=== PATIENT | male | born 1945 | race Hispanic/Latino ===

== ENCOUNTER 2019-12-29 17:01 | Emergency (ER) | payer MEDICARE ==
[2019-12-29 17:21] LABS: APPEARANCE,URINE Clear (CLEAR); BILIRUBIN,URINE Negative (NEGATIVE); COLOR,URINE Yellow (YELLOW); GLUCOSE, URINE (UA) Negative (NEGATIVE); KETONES,URINE Negative (NEGATIVE); LEUKOCYTE ESTERASE ,URINE Trace (NEGATIVE); NITRATE,URINE Negative (NEGATIVE); OCCULT BLOOD,URINE Nonhemolyzed Trace (NEGATIVE); PH,URINE 7.5 (5.0-8.0); PROTEIN,URINE Negative (NEGATIVE)
[2019-12-29 17:30] LABS: BASOPHILS % (AUTO) 0.3 % (0.0-5.0); EOSINOPHILS % (AUTO) 1.5 % (0.0-8.0); HEMATOCRIT 39.7 % (42-54); LYMPHOCYTES % (AUTO) 7.7 % (21.0-51.0); MEAN CORPUSCULAR HEMOGLOBIN 29.3 pg (27.0-33.0); MEAN CORPUSCULAR HGB CONC 32.2 g/dL (32.0-36.0); MEAN CORPUSCULAR VOLUME 90.8 fL (79-99); MONOCYTES % (AUTO) 6.8 % (3.0-13.0); NEUTROPHILS % (AUTO) 83.3 % (40.0-77.0); PLATELET COUNT (AUTO) 236 K/uL (130-400); RED BLOOD CELL COUNT(AUTO) 4.37 MIL/uL (4.50-6.20); RED CELL DISTRIBUTION WIDTH 12.7 % (11.0-15.5); WHITE BLOOD COUNT (AUTO) 13.2 K/uL (4.8-10.8)
[2019-12-29 17:31] LABS: BACTERIA,URINE Rare /HPF (None Seen); RBC,URINE 0-1 /HPF (0-1); SQUAMOUS EPITHELIAL CELL,UR Rare /HPF (0-2); WBC,URINE 0-1 /HPF (0-1)
[2019-12-29 17:47] LABS: CREATININE 1.1 mg/dL (0.5-1.5); POTASSIUM 4.2 mmol/L (3.5-5.1)
[2019-12-29 17:48] LABS: INR 0.97 (0.85-1.15); PROTHROMBIN TIME 10.5 SEC (9.6-11.6)
[2019-12-29 18:01] LABS: ALBUMIN 3.5 g/dL (3.5-5.0); BILIRUBIN,TOTAL 0.7 mg/dL (0.2-1.0); TOTAL PROTEIN, SERUM 7.6 g/dL (6.0-8.3)
[2019-12-29] MEDS ORDERED: SODIUM CHLORIDE 0.9% 500ML 500 ML IV ONE (19:51)
[2019-12-29] MEDS ORDERED: LEVOFLOXACIN 500 MG TABLET ONE (19:51)
== END 2019-12-29 20:32 | disposition home or self-care (01) ==
LOC: EDH 17:01
DX: M62.830 Muscle spasm of back (principal); R91.8 Other nonspecific abnormal finding of lung field; J44.9 Chronic obstructive pulmonary disease, unspecified; E11.9 Type 2 diabetes mellitus without complications; E78.5 Hyperlipidemia, unspecified; I10 Essential (primary) hypertension; Z87.891 Personal history of nicotine dependence; Z99.81 Dependence on supplemental oxygen
CPT/HCPCS: 36415; 71045; 71275; 80053; 81001; 82550; 83880; 84484; 85025; 85378; 85610; 85730; 93005; 99285; J7040

== ENCOUNTER 2020-04-10 21:38 | Emergency (ER) | payer MEDICARE ==
[2020-04-10] MEDS ORDERED: ACETAMINOPHEN 325 MG TAB ONE (22:27)
[2020-04-10] MEDS ORDERED: LIDOCAINE 5% TOPICAL PATCH TP ONE (22:27)
== END 2020-04-10 23:17 | disposition home or self-care (01) ==
LOC: EDH 21:38
DX: S16.1XXA Strain of muscle, fascia and tendon at neck level, initial encounter (principal); J43.9 Emphysema, unspecified; E11.9 Type 2 diabetes mellitus without complications; I10 Essential (primary) hypertension; E78.5 Hyperlipidemia, unspecified; X58.XXXA Exposure to other specified factors, initial encounter; Y93.89 Activity, other specified; Y92.89 Other specified places as the place of occurrence of the external cause; Y99.8 Other external cause status
CPT/HCPCS: 71045

== ENCOUNTER 2020-05-28 04:58 | Emergency (ER) | payer MEDICARE ==
[2020-05-28 05:38] LABS: BASOPHILS % (AUTO) 0.5 % (0.0-5.0); EOSINOPHILS % (AUTO) 2.8 % (0.0-8.0); HEMATOCRIT 36.8 % (42-54); MEAN CORPUSCULAR HEMOGLOBIN 29.5 pg (27.0-33.0); MEAN CORPUSCULAR HGB CONC 31.8 g/dL (32.0-36.0); MEAN CORPUSCULAR VOLUME 92.9 fL (79-99); MONOCYTES % (AUTO) 9.5 % (3.0-13.0); NEUTROPHILS % (AUTO) 69.3 % (40.0-77.0); PLATELET COUNT (AUTO) 224 K/uL (130-400); RED BLOOD CELL COUNT(AUTO) 3.96 MIL/uL (4.50-6.20); RED CELL DISTRIBUTION WIDTH 13.5 % (11.0-15.5); WHITE BLOOD COUNT (AUTO) 5.8 K/uL (4.8-10.8)
[2020-05-28 05:56] LABS: CREATININE 1.5 mg/dL (0.5-1.5); POTASSIUM 3.6 mmol/L (3.5-5.1)
[2020-05-28 05:58] LABS: INR 1.03 (0.85-1.15); PROTHROMBIN TIME 11.2 SEC (9.6-11.6)
[2020-05-28 06:00] LABS: B-TYPE NATRIURETIC PEPTIDE 46 pg/mL (0-100); PARTIAL THROMBOPLASTIN TIME 24.8 SEC (26.3-35.5)
[2020-05-28] MEDS ORDERED: METHYLPREDNISOLONE SOD SUCC 40MG/ML 1ML ONE (06:03)
[2020-05-28 06:09] LABS: ALBUMIN 3.2 g/dL (3.5-5.0); BILIRUBIN,TOTAL 0.4 mg/dL (0.2-1.0); TOTAL PROTEIN, SERUM 6.8 g/dL (6.0-8.3)
[2020-05-28] MEDS ORDERED: IPRATROPIUM/ALBUTEROL SULFATE 3 ML SOLUTION IH ONE (07:50)
== END 2020-05-28 08:53 | disposition home or self-care (01) ==
LOC: EDH 04:58
DX: J44.1 Chronic obstructive pulmonary disease with (acute) exacerbation (principal); G47.00 Insomnia, unspecified; Z20.822 Contact with and (suspected) exposure to COVID-19; E11.9 Type 2 diabetes mellitus without complications; I10 Essential (primary) hypertension; E78.5 Hyperlipidemia, unspecified; Z87.891 Personal history of nicotine dependence
CPT/HCPCS: 36415; 71045; 80053; 82550; 83605; 83880; 84484; 85025; 85610; 85730; 87426; 87804 ×2; 93005; 94640; 96374; 99285; J2920

== ENCOUNTER 2020-08-21 19:35 | Observation (INO) | payer MEDICARE ==
[~2020-08-21] VITALS: Ht 167.6 cm; Wt 91.4 kg
[2020-08-21 19:37] VITALS: BP 155/69
[2020-08-21 20:18] LABS: BASOPHILS % (AUTO) 0.8 % (0.0-5.0); EOSINOPHILS % (AUTO) 2.4 % (0.0-8.0); HEMATOCRIT 35.1 % (42-54); LYMPHOCYTES % (AUTO) 15.4 % (21.0-51.0); MEAN CORPUSCULAR HEMOGLOBIN 29.2 pg (27.0-33.0); MEAN CORPUSCULAR HGB CONC 30.2 g/dL (32.0-36.0); MEAN CORPUSCULAR VOLUME 96.7 fL (79-99); MONOCYTES % (AUTO) 11.9 % (3.0-13.0); NEUTROPHILS % (AUTO) 68.2 % (40.0-77.0); PLATELET COUNT (AUTO) 222 K/uL (130-400); RED BLOOD CELL COUNT(AUTO) 3.63 MIL/uL (4.50-6.20); RED CELL DISTRIBUTION WIDTH 13.9 % (11.0-15.5); WHITE BLOOD COUNT (AUTO) 6.3 K/uL (4.8-10.8)
[2020-08-21] MEDS ORDERED: SOLU-MEDROL 125MG VIAL IVP ONE (20:30)
[2020-08-21] MEDS ORDERED: IPRATROPIUM/ALBUTEROL SULFATE 3 ML SOLUTION IH ONE (20:30)
[2020-08-21 20:32] LABS: CREATININE 1.1 mg/dL (0.5-1.5); POTASSIUM 4.3 mmol/L (3.5-5.1)
[2020-08-21 20:36] LABS: ALBUMIN 2.9 g/dL (3.5-5.0); BILIRUBIN,TOTAL 0.2 mg/dL (0.2-1.0); TOTAL PROTEIN, SERUM 6.6 g/dL (6.0-8.3)
[2020-08-21 20:38] LABS: B-TYPE NATRIURETIC PEPTIDE 136 pg/mL (0-100)
[2020-08-21] MEDS ORDERED: SOLU-MEDROL 125MG VIAL ONE (20:48)
[2020-08-21 21:15] LABS: ABG BASE EXCESS 1.4 mmol/L (-2.0-3.0); ABG HCO3 25.9 mmol/L (21.0-28.0); ABG PCO2 41 mmHg (35-48)
[2020-08-21] MEDS ORDERED: 0.9% NACL 250ML IVPB ONE (21:30)
[2020-08-21] MEDS ORDERED: CEFTRIAXONE 1G VIAL IVP ONE (21:30)
[2020-08-21] MEDS ORDERED: ALBUTEROL 0.083% 2.5 MG/3 ML INH IH ONE (21:30)
[2020-08-21] MEDS ORDERED: AZITHROMYCIN 500MG+NS 250ML IV ONE (22:00)
[2020-08-21 22:20] VITALS: BP 143/83
[2020-08-21] MEDS ORDERED: NITROGLYCERIN 0.4 MG SL TAB SL PRN (22:30)
[2020-08-21] MEDS ORDERED: ACETAMINOPHEN 325 MG TAB PO PRN (22:30)
[2020-08-21] MEDS ORDERED: ONDANSETRON 4MG INJ IV PRN (22:30)
[2020-08-21] MEDS ORDERED: AZITHROMYCIN 250 MG TABLET PO SCH (22:30)
[2020-08-21] MEDS ORDERED: CEFTRIAXONE 1G VIAL IV SCH (22:30)
[2020-08-21] MEDS ORDERED: LACTULOSE 20 GM/30 ML UDCUP PO PRN (22:30)
[2020-08-21] MEDS ORDERED: HYDRALAZINE 20MG/ML VIAL IV PRN (22:30)
[2020-08-21] MEDS: SOLU-MEDROL 125MG VIAL IVP SCH (22:30)
[2020-08-21] MEDS: IPRATROPIUM/ALBUTEROL SULFATE 3 ML SOLUTION IH SCH (23:02)
[2020-08-22] VITALS (8 sets, daily range): BP systolic 134–152; BP diastolic 64–85
[2020-08-22] MEDS ORDERED: ISOS10TA8 PO (04:03)
[2020-08-22] MEDS ORDERED: UMEC62.5 IH (04:03)
[2020-08-22] MEDS ORDERED: OMEP40CA21 PO (04:03)
[2020-08-22] MEDS ORDERED: ATOR20TA65 PO (04:03)
[2020-08-22] MEDS ORDERED: PIOG30TA70 PO (04:03)
[2020-08-22] MEDS ORDERED: LOSA1TAB42 PO (04:03)
[2020-08-22] MEDS ORDERED: ADV250 IH (04:03)
[2020-08-22] MEDS: SOLU-MEDROL 125MG VIAL IVP SCH ×3 (04:17→17:41)
[2020-08-22] MEDS: INSULIN HUMULIN R 100 UNIT/ML 3ML SQ SCH ×4 (06:19→21:04)
[2020-08-22] MEDS: IPRATROPIUM/ALBUTEROL SULFATE 3 ML SOLUTION IH SCH ×4 (06:33→23:05)
[2020-08-22] MEDS ORDERED: FAMOTIDINE 20MG TAB PO SCH (09:00)
[2020-08-22] MEDS: BENZONATATE 100 MG CAPSULE PO SCH ×3 (09:47→20:47)
[2020-08-22] MEDS: ENOXAPARIN SODIUM 40 MG/0.4 ML SYRINGE SQ SCH (09:47)
[2020-08-22] MEDS ORDERED: LEVOFLOXACIN 500 MG/D5W 100 ML 100 ML IV SCH (20:30)
[2020-08-22] MEDS ORDERED: ATORVASTATIN 20 MG TABLET PO SCH (21:00)
[2020-08-23 04:00] VITALS: BP 144/73
[2020-08-23] MEDS ORDERED: SOLU-MEDROL 125MG VIAL IVP SCH (04:30)
[2020-08-23] MEDS: INSULIN HUMULIN R 100 UNIT/ML 3ML SQ SCH ×2 (05:28→11:30)
[2020-08-23 05:42] LABS: HEMATOCRIT 32.2 % (42-54); MEAN CORPUSCULAR HEMOGLOBIN 28.9 pg (27.0-33.0); MEAN CORPUSCULAR HGB CONC 31.1 g/dL (32.0-36.0); MEAN CORPUSCULAR VOLUME 93.1 fL (79-99); RED BLOOD CELL COUNT(AUTO) 3.46 MIL/uL (4.50-6.20); RED CELL DISTRIBUTION WIDTH 13.6 % (11.0-15.5); WHITE BLOOD COUNT (AUTO) 9.1 K/uL (4.8-10.8)
[2020-08-23] MEDS: IPRATROPIUM/ALBUTEROL SULFATE 3 ML SOLUTION IH SCH ×2 (07:12→13:41)
[2020-08-23 08:00] VITALS: BP 150/63
[2020-08-23] MEDS: BENZONATATE 100 MG CAPSULE PO SCH (08:55)
[2020-08-23] MEDS: ENOXAPARIN SODIUM 40 MG/0.4 ML SYRINGE SQ SCH (08:56)
[2020-08-23] MEDS ORDERED: ISOSORBIDE MONONITRATE 10 MG PO SCH (09:00)
[2020-08-23] MEDS ORDERED: HYDROCHLOROTHIAZIDE 25 MG TABLET PO SCH (09:00)
[2020-08-23] MEDS ORDERED: PANTOPRAZOLE 40 MG TAB DR PO SCH (09:00)
[2020-08-23] MEDS ORDERED: LOSARTAN 100 MG TABLET PO SCH (09:00)
[2020-08-23] MEDS ORDERED: PRED20TA3 PO (10:23)
[2020-08-23] MEDS ORDERED: LEVO500T89 PO (10:23)
[2020-08-23] MEDS ORDERED: ALBU1.252 IH (10:23)
[2020-08-23 12:00] VITALS: BP 120/68
== END 2020-08-23 14:14 | disposition home or self-care (01) ==
LOC: EDH 19:35 → EDHIP 22:14 → 3CH 08-22 02:27
PROVIDERS: ADMIT Internal Medicine Pulmonary Disease; ATTEND Internal Medicine Pulmonary Disease
DX: J96.21 Acute and chronic respiratory failure with hypoxia (principal); Z20.822 Contact with and (suspected) exposure to COVID-19; J44.1 Chronic obstructive pulmonary disease with (acute) exacerbation; J18.9 Pneumonia, unspecified organism; I10 Essential (primary) hypertension; I25.2 Old myocardial infarction; I25.10 Atherosclerotic heart disease of native coronary artery without angina pectoris; M95.4 Acquired deformity of chest and rib; E11.65 Type 2 diabetes mellitus with hyperglycemia; E78.00 Pure hypercholesterolemia, unspecified; E78.5 Hyperlipidemia, unspecified; G47.33 Obstructive sleep apnea (adult) (pediatric); Z87.891 Personal history of nicotine dependence; Z88.0 Allergy status to penicillin; Z79.899 Other long term (current) drug therapy; Z98.41 Cataract extraction status, right eye; Z98.42 Cataract extraction status, left eye; Z98.890 Other specified postprocedural states
CPT/HCPCS: 36415 ×2; 36600; 71045; 71250; 80048; 80053; 82803; 82948 ×6; 83605; 83735; 83880; 84484; 85025; 85027; 87040 ×2; 87635; 93005; 94640 ×8; 94664; 96361; 96365; 96367; 96372 ×2; 96375 ×2; 96376 ×2; 99285; C9803; G0378 ×38; J0456; J0696; J1650 ×2; J1815; J1956; J2930 ×5

== ENCOUNTER 2024-01-24 10:49 | Inpatient (IN) | payer MEDICARE ==
[~2024-01-24] VITALS: Ht 160 cm; Wt 73.6 kg
[~2024-01-24 10:49] MED LIST: BUDE0.5A3 NEB; CLOP-31 PO; FURO40TA7 PO; LEVO750T68 PO; LOSA1TAB37 PO; MELO-106 PO; MONT-46 PO; OMEP40CA21 PO; OSEL75 PO; PIOG30TA70 PO; RANO500T6 PO; UMEC62.5 IH
--- NOTE | 2024-01-24 11:15 | ERN ---
ED Note History of Present Illness Stated Complaint: SHORTNESS OF BREATH SINCE 0300 Chief Complaint: Shortness of Breath Time Seen by MD: 10:52 Dictation: Patient is a 78-year-old male with a past medical history of COPD hypertension, hypercholesterolemia, prostatitis, and diabetes type 2 presents to the ED for shortness of breath. Patient needs home O2 but this has not been established yet. Patient denies any chest pain, nausea, vomiting, or dizziness. Patient has not smoked or drank alcohol in the past year. Patient denies illicit drug use. Allergies: Coded Allergies: Penicillins (Verified Allergy, 01/27/13) Home Meds Active Scripts Budesonide (Budesonide) 0.5 Mg/2 Ml Ampul.neb, 1 VIAL NEB BID for 15 Days, #120 ML 0 Refills Prov:[facility]FONSO [facility] 01/05/24 Clopidogrel Bisulfate (Plavix) 75 Mg Tablet, 75 MG PO DAILY, #30 TAB 1 Refill Prov:[facility] 01/05/24 Levofloxacin (Levaquin 750Mg Tabs) 750 Mg Tablet, 750 MG PO DAILY, #7 TAB 0 Refills Prov:JING ALFONSO [facility] 01/05/24 Oseltamivir Phosphate (Tamiflu) 75 Mg Cap, 75 MG PO BID, #8 CAP 0 Refills Prov:[facility] 01/05/24 Montelukast Sodium (Singulair 10Mg) 10 Mg Tab, 10 MG PO HS, #30 TAB 0 Refills Prov:[facility] 01/05/24 Furosemide (Lasix 40Mg Tab) 40 Mg Tablet, 40 MG PO DAILY, #30 TAB 1 [facility]/05/24 Reported Medications Pioglitazone HCl (Pioglitazone HCl) 30 Mg Tablet, 1 TAB PO DAILY for 30 Days, #30 TAB 0 Refills 01/02/24 Meloxicam (Meloxicam) 7.5 Mg Tablet, 1 TAB PO DAILY for 30 Days, #30 TAB 0 Refills 01/02/24 Losartan/Hydrochlorothiazide (Losartan-Hctz 50-12.5 mg Tab) 50 Mg-12.5 Mg Tablet, 1 TAB PO DAILY for 30 Days, #30 TAB 0 Refills 01/02/24 Ranolazine (Ranolazine ER) 500 Mg Tab.er.12h, 1 TAB PO BID for 30 Days, #60 TAB 0 Refills 01/02/24 Omeprazole (Omeprazole) 40 Mg Capsule.dr, 1 CAP PO DAILY for 30 Days, #30 CAP 0 Refills 01/02/24 Umeclidinium Addison (Incruse Ellipta) 62.5 Mcg Blst.w.dev, 62.5 MCG IH DAILY 08/22/20 Past Medical History Past Medical History: COPD, Diabetes-Type II, High Cholesterol, Hypertension, Prostatitis, Vascular Disease Additional Past Medical Hx: EMPHESYMA Surgical History: Other Surgical History Other: PROSTATECTOMY/VASCULAR PROCEDURE. Family History: Negative Social History: Negative Review of System Dictation Constitutional-no chills, weight loss/gain, fever Eyes-no injury, pain, redness and discharge ENT-no injury, pain, swelling Cardiovascular no chest pain, palpitations, edema Respiratory no cough, wheezing, positive for shortness of breath Abdomen/GI-no abdominal pain, diarrhea, constipation, vomiting, nausea Back no injury and pain Genitourinary no injury, bleeding and discharge Musculoskeletal/extremities no injury, deformity Skin no rash, discoloration Neuro-no headache, weakness, numbness, tingling, seizures, tremors Psych-no suicidal ideation, homicidal ideation, hallucinations, depression, anxiety, memory loss Initial Vital Sign VS Vital Signs Date Time Temp Pulse Resp B/P (MAP) Pulse Ox O2 Delivery O2 Flow Rate FiO2 01/24/24 10:54 98.4 101 20 118/65 97 Nasal Cannula 2.0 01/24/24 11:47 32 Physical Exam Dictation VITAL SIGNS: Reviewed. GENERAL APPEARANCE: Alert, oriented x3, no acute distress, obese. HEAD AND FACE: Non-traumatic. EYES: PERRL, pink conjunctivas, eyelid no trauma, anterior chamber clear. EARS: Pinnas intact and no signs of trauma or erythema. Ear canals clear and no discharge. TMs no erythema. NOSE: No discharge, no bleeding. OROPHARYNX: Mouth normal, teeth no caries, tongue pink. Pharynx clear, no erythema. Tonsils no exudates, no abscesses noted. Mucous membrane moist. NECK: Supple, non-tender, no thyromegaly, no masses, no JVD, no bruits. BREAST: Deferred. CHEST: No tenderness, no crepitus, no paradoxical movement, no retractions. LUNGS: Clear, well-ventilated, symmetric, no rales, no wheezing, no rhonchi, no stridor, good breath sounds bilaterally. HEART: Regular rate, regular rhythm, no murmur, no gallops. VASCULAR: No peripheral edema. ABDOMEN: Soft, positive bowel sounds, nondistended, no guarding, nontender, no rebound, no masses no hepatomegaly, no splenomegaly, no Mcconnell's sign, no hernias. RECTAL: Swelling, lesion, possible pilonidal cyst GENITAL: Deferred. NEUROLOGICAL: Normal speech, gross motor function intact, gross sensory function intact. MUSCULOSKELETAL: Neck nontender, full range of motion, back nontender, full range of motion. EXTREMITIES: Nontender, full range of motion. SKIN: Color pink, dry, no turgor, no rash, no lacerations, no abrasions, no contusions. LYMPHATICS: Deferred. Results (Laboratory/Radiology) Laboratory/Radiology Laboratory Tests Test 01/24/24 10:06 01/24/24 11:13 01/24/24 11:32 01/24/24 11:59 Urine Color LIGHT-YELLOW (YELLOW) Urine Appearance CLEAR (CLEAR) Urine pH 6.5 (5.0-8.0) Urine Specific Collins 1.013 (1.001-1.031) Urine Protein 10 mg/dL (NEGATIVE) H Urine Glucose (UA) NEGATIVE mg/dL (NEGATIVE) Urine Ketones NEGATIVE mg/dL (NEGATIVE) Urine Occult Blood NEGATIVE (NEGATIVE) Urine Nitrate NEGATIVE (NEGATIVE) Urine Bilirubin NEGATIVE mg/dL (NEGATIVE) Urine Urobilinogen 0.2 mg/dL (0.2-1.0) Urine Leukocyte Esterase NEGATIVE Smith/uL Urine RBC 0-1 /HPF (0-1) Urine WBC 0-1 /HPF (0-1) Urine Squamous Epithelial Cells RARE /HPF (0-2) Urine Bacteria None /HPF (None Seen) Urine Hyaline Casts 2-5 /LPF (0-1 /LPF) H Influenza Type A Antigen Negative For Type A Influenza Type B Antigen Negative For Type B SARS-CoV-2 Antigen (Rapid) PRESUMPTIVE NEGATIVE White Blood Count 12.5 K/uL (4.8-10.8) H Red Blood Count 3.88 MIL/uL (4.50-6.20) L Hemoglobin 11.9 g/dL (14.0-18.0) L Hematocrit 36.7 % (42-54) L Mean Corpuscular Volume 94.6 fL (79-99) Mean Corpuscular Hemoglobin 30.7 pg (27.0-33.0) Mean Corpuscular Hemoglobin Concent 32.4 g/dL (32.0-36.0) Red Cell Distribution Width 13.7 % (11.0-15.5) Platelet Count 195 K/uL (130-400) Mean Platelet Volume 8.8 fL (7.5-10.5) Immature Granulocyte % (Auto) 0.6 % (0-1) Neutrophils (%) (Auto) 92.2 % (40.0-77.0) H Lymphocytes (%) (Auto) 3.5 % (21.0-51.0) L Monocytes (%) (Auto) 3.4 % (3.0-13.0) Eosinophils (%) (Auto) 0.1 % (0.0-8.0) Basophils (%) (Auto) 0.2 % (0.0-5.0) Neutrophils # (Auto) 11.6 K/uL (1.8-7.7) H Lymphocytes # (Auto) 0.4 K/uL (1.0-4.8) L Monocytes # (Auto) 0.4 K/uL (0.1-1.0) Eosinophils # (Auto) 0.01 K/uL (0.00-0.70) Basophils # (Auto) 0.02 K/uL (0.00-0.20) Absolute Immature Granulocyte (auto 0.08 K/uL (0-1) Nucleated Red Blood Cells 0.0 % (0.0-0.19) White Cell Morphology Comment See comments Sodium Level 136 mmol/L (136-145) Potassium Level 4.0 mmol/L (3.5-5.1) Chloride Level 99 mmol/L (101-111) L Carbon Dioxide Level 31 mmol/L (21-32) Blood Urea Nitrogen 21 mg/dL (7-18) H Creatinine 1.2 mg/dL (0.5-1.3) Glomerular Filtration Rate Calc 61 mL/min (>90) Random Glucose 180 mg/dL (70-105) H Total Calcium 9.1 mg/dL (8.5-10.1) Troponin I High Sensitivity 48 ng/L (4-75) B-Type Natriuretic Peptide 383 pg/mL (0-100) H Blood Gas Specimen Type Arterial Arterial Blood pH 7.497 (7.350-7.450) Arterial Blood Partial Pressure CO2 38 mmHg (35-48) Arterial Blood Partial Pressure O2 62.5 mmHg (83.0-108.0) L Arterial Blood HCO3 28.8 mmol/L (21.0-28.0) H Arterial Blood Oxygen Saturation 93.7 % (94.0-98.0) L Arterial Blood Base Excess 5.4 mmol/L (-2.0-3.0) H Blood Gas Temperature 37.0 CELSIUS (35.5-37.0) Blood Gas Flow-by 2.00 L/min (0.00-15.00) Blood Gas Vent Mode NC (ROOM AIR) FiO2 28.0 % Blood Gas Specimen Comment RR, Labs Reviewed?: Yes EKG Comment: EKG 01/24/2024 time 11:24 a.m. ventricular rate 97, CT 163, QRS D 145 QT 392. Sinus rhythm, ventricular bigeminy, RBBB and LAFB. No STEMI ED Course ED Course Orders Procedure Category Date Status Time Ipratropium/Albuterol PHA 01/24/24 Complete Neb (Duoneb) 11:30 Methylprednisolone PHA 01/24/24 Complete Succ 125mg (Solu-Medr 11:30 Covid19 (Sars Antigen LAB 01/24/24 Complete Rapid) 11:04 Influenza Type A & B, LAB 01/24/24 Complete Rapid 11:04 Cbc With Differential LAB 01/24/24 Complete 11:04 Basic Metabolic Panel LAB 01/24/24 Complete 11:04 B-Type Natriuretic LAB 01/24/24 Complete Peptide 11:04 Chest 1vw RAD 01/24/24 Resulted 11:04 12 Lead Ekg Tracing- EKG 01/24/24 Logged Technical 11:04 Urinalysis Profile LAB 01/24/24 Complete 11:04 Troponin I High LAB 01/24/24 Complete Sensitivity 11:04 Arterial Blood Gas RT 01/24/24 Transmitted 11:15 Arterial Blood Gas LAB 01/24/24 Complete 11:59 Vital Signs(Adult CPOE 12/18/24 Transmitted Hospitalist) 13:58 Oxygen By Nc/Pulse Ox CPOE 01/24/24 Transmitted 13:58 I&O Q Shift CPOE 01/24/24 Transmitted 13:58 Famotidine 20mg Tab PHA 01/24/24 In Process (Pepcid 20mg Tab) 21:00 Diphenhydramine Hcl PHA 01/24/24 In Process (Benadryl Inj) 14:00 Acetaminophen 325 Tab PHA 01/24/24 In Process (Tylenol 325mg Tab 14:00 Acetaminophen 325 Tab PHA 01/24/24 In Process (Tylenol 325mg Tab 14:00 Ondansetron 4mg Inj PHA 01/24/24 In Process (Zofran 4mg Inj) 14:00 Zolpidem Tartrate 5 PHA 01/24/24 In Process Mg Tab (Ambien) 14:00 Mag/Alum/Simeth 30ml PHA 01/24/24 In Process (Maalox Plus 30ml) 14:00 Lactulose 20 Gm/30 Ml PHA 01/24/24 In Process Udcup (Constulose 14:00 Nitroglycerin 0.4mg PHA 01/24/24 In Process Sl Tab (Nitrostat) 14:00 Guaifenesin-Dm PHA 01/24/24 In Process 200/20mg 10ml 14:00 Ipratropium/Albuterol PHA 01/24/24 In Process Neb (Duoneb) 14:00 Pt Eval And Treat PT 01/24/24 Transmitted 13:58 Case Management CM 01/24/24 Transmitted Evaluation 13:58 Guaifenesin Sug-Mo PHA 01/24/24 In Process 100 Mg/5ml (Robituss 14:00 Loperamide Hcl 2 Mg PHA 01/24/24 In Process Cap (Imodium) 14:00 Docusate Sodium 100 PHA 01/24/24 In Process Mg Cap (Colace 100mg 14:00 Polyethylene Glycol PHA 01/24/24 In Process 3350 (Miralax 3350 1 14:00 Alprazolam 0.5mg PHA 01/24/24 In Process (Xanax 0.5mg) 14:00 Natural Tears 15ml PHA 01/24/24 In Process (Artificial Tears) 14:00 Benzocaine/Menth/Cetylpyrd PHA 01/24/24 In Process Cl (Cepacol S 14:00 Admit Orders ADM 01/24/24 Transmitted 13:58 Consistent Carb DIET 01/24/24 Transmitted Lunch Initiate MARTINEZ 01/24/24 In Process Hyperglycemia Protoco 13:58 Insulin Regular, PHA 01/24/24 In Process Human 3ml (Humulin R 16:30 Current Medications Medications (Trade) Dose Ordered Sig/Jessika Route PRN Reason Start Time Stop Time Status Last Admin Dose Admin Acetaminophen (TYLenol 325MG TAB) 650 mg Q4H PRN PO MILD PAIN (1-3) 01/24/24 14:00 02/23/24 13:59 Acetaminophen (TYLenol 325MG TAB) 650 mg Q6H PRN PO TEMPERATURE GREATER THAN 101.5 01/24/24 14:00 02/23/24 13:59 Al Hydroxide/Mg Hydroxide (MAALox PLUS 30ML) 30 ml Q6H PRN PO INDIGESTION 01/24/24 14:00 02/23/24 13:59 Albuterol (DUOneb) 1 UDVIAL ONCE ONCE IH 01/24/24 11:30 01/24/24 11:31 DC 01/24/24 11:51 Albuterol (DUOneb) 1 udvial [id number] IH 01/24/24 14:00 02/23/24 13:59 Alprazolam (XANax 0.5MG) 0.5 mg Q6H PRN PO ANXIETY/AGITATION 01/24/24 14:00 02/23/24 13:59 Artificial Tears (Artificial Tears) 1 drop Q2H PRN OP DRY EYES 01/24/24 14:00 02/23/24 13:59 Benzocaine (Cepacol Sore Throat Lozenge) 1 each Q2H PRN MM SORE THROAT 01/24/24 14:00 02/23/24 13:59 Diphenhydramine HCl (BENAdryl INJ) 25 mg Q6H PRN IV SEVERE ITCHING/RASH 01/24/24 14:00 02/23/24 13:59 Docusate Sodium (COLace 100MG CAP) 100 mg BID PRN PO CONSTIPATION 01/24/24 14:00 02/23/24 13:59 Famotidine (Pepcid 20mg Tab) 20 mg BID PO 01/24/24 21:00 02/23/24 20:59 Guaifenesin (RobiTUSSin SUGAR-FREE 100 MG/ 5 ML UDCUP) 200 mg Q4H PRN PO COUGH 01/24/24 14:00 02/23/24 13:59 Guaifenesin/ Dextromethorphan (RobiTUSSin DM 200/20MG 10ML) 10 ml Q4H PRN PO COUGH 01/24/24 14:00 02/23/24 13:59 Insulin Human Regular (humuLIN R 100 UNIT/ML 3ML) INSULIN SLIDING SCAL... ACHS SQ 01/24/24 16:30 02/23/24 16:29 Lactulose (Constulose 20gm/ 30ml Udcup) 20 gm BID PRN PO CONSTIPATION 01/24/24 14:00 02/23/24 13:59 Loperamide HCl (Imodium) 2 mg Q6H PRN PO AFTER EACH LOOSE STOOL 01/24/24 14:00 02/23/24 13:59 Methylprednisolone Sodium Succinate (Solu-medROL 125MG) 125 mg ONCE ONCE IVP 01/24/24 11:30 01/24/24 11:31 DC 01/24/24 11:22 Nitroglycerin (Nitrostat) 0.4 mg PROTOCOL PRN SL CHEST PAIN 01/24/24 14:00 02/23/24 13:59 Ondansetron HCl (zoFRAN 4MG INJ) 4 mg Q6H PRN IV NAUSEA/VOMITING 01/24/24 14:00 02/23/24 13:59 Polyethylene Glycol (MIRalax 3350 17 GM POWD.PACK) 17 gm DAILY PRN PO CONSTIPATION 01/24/24 14:00 02/23/24 13:59 Zolpidem Tartrate (AmbIEN) 5 mg HS PRN PO INSOMNIA 01/24/24 14:00 02/23/24 13:59 Vital Signs Date Time Temp Pulse Resp B/P (MAP) Pulse Ox O2 Delivery O2 Flow Rate FiO2 01/24/24 13:33 98.4 88 24 113/43 92 Nasal Cannula* 3 32 01/24/24 11:55 87 24 01/24/24 11:47 95 20 101/33 96 Nasal Cannula* 3 32 01/24/24 10:54 98.4 101 20 118/65 97 Nasal Cannula 2.0 HEART Score Response (Comments) Value History: Low suspicion (0) 0 EKG: Normal 0 Age: > 65yrs (+2) 2 Risk Factors: 1-2 risk factors (+1) 1 Initial Troponin: Normal limit (0) 0 HEART Score Risk: Low Risk for MACE (1-3) Total 3 Medical Decision Making [facility] MDM INITIAL IMPRESSION Initial history and physical concerning for acute on chronic COPD exacerbation Contributing medical problems: History of COPD I have reviewed the triage nursing notes and vital signs. Initial plan: Laboratory evaluation, EKG, UA, chest x-ray DATA REVIEW I have reviewed additional NN, repeat VS, and monitoring where indicated. Heart rate, blood pressure, and O2 saturation are acceptable. Swenson diagnostic results: Other independent historian: Review of external data: ED COURSE Interventions: 1357-[facility] consult accepts patient for admission DISPOSITION Final diagnostic impression: I discussed my findings, clinical impression and treatment recommendations with the patient. My final plan for disposition was made based upon -mild risk of complications and potential morbidity of the patient's condition. -Discussion with the patient regarding management options. Patient will be admitted DX & DISP Disposition: Inpatient Decision to Admit Date: Jan 24, 2024 Decision to Admit Time: 13:58 Departure Impression: Primary Impression: COPD with acute exacerbation Additional Impression: Dyspnea Condition: Stable Referrals: ANDREA LEON MD (PCP) Time of Disposition: 13:19 I have reviewed, & agreed with my scribe's, documentation. (Entered by Armida Mcdaniels, acting as a scribe for Dr. Funk) I personally scribed for MARY KATE FUNK MD (HELLEN) on 01/24/24 at 12:54. Electronically submitted by Armida Mcdaniels ([employer] [place]). I personally scribed for MARY KATE FUNK MD (HELLEN) on 01/24/24 at 13:20. Electronically submitted by Armida Mcdaniels ([employer] [place]). I personally scribed for MARY KATE FUNK MD (HELLEN) on 01/24/24 at 13:31. Electronically submitted by Armida Mcdaniels ([employer] [place]). I personally scribed for MARY KATE FUNK MD (HELLEN) on 01/24/24 at 13:37. Electronically submitted by Armida Mcdaniels ([employer] [place]). I personally scribed for MARY KATE FUNK MD (HELLEN) on 01/24/24 at 13:58. Electronically submitted by Armida Mcdaniels ([email or web address]). GAYE MACHADO MD Jan 24, 2024 11:15 MARY KATE FUNK MD Jan 24, 2024 12:54
[2024-01-24] MEDS: Solu-medROL 125MG VIAL IVP ONE (11:22)
[2024-01-24 11:42] LABS: BASOPHILS # (AUTO) 0.02 K/uL (0.00-0.20); BASOPHILS % (AUTO) 0.2 % (0.0-5.0); EOSINOPHILS # (AUTO) 0.01 K/uL (0.00-0.70); EOSINOPHILS % (AUTO) 0.1 % (0.0-8.0); HEMATOCRIT 36.7 % (42-54); IMMATURE GRANULOCYTE ABSOLUTE 0.08 K/uL (0-1); LYMPHOCYTES # (AUTO) 0.4 K/uL (1.0-4.8); LYMPHOCYTES % (AUTO) 3.5 % (21.0-51.0); MEAN CORPUSCULAR HEMOGLOBIN 30.7 pg (27.0-33.0); MEAN CORPUSCULAR HGB CONC 32.4 g/dL (32.0-36.0); MEAN CORPUSCULAR VOLUME 94.6 fL (79-99); MONOCYTES # (AUTO) 0.4 K/uL (0.1-1.0); MONOCYTES % (AUTO) 3.4 % (3.0-13.0); NEUTROPHILS # (AUTO) 11.6 K/uL (1.8-7.7); NEUTROPHILS % (AUTO) 92.2 % (40.0-77.0); PLATELET COUNT (AUTO) 195 K/uL (130-400); RED BLOOD CELL COUNT(AUTO) 3.88 MIL/uL (4.50-6.20); RED CELL DISTRIBUTION WIDTH 13.7 % (11.0-15.5); WHITE BLOOD COUNT (AUTO) 12.5 K/uL (4.8-10.8)
[2024-01-24 11:45] LABS: COVID19 (SARS ANTIGEN RAPID) PRESUMPTIVE NEGATIVE (NEGATIVE); INFLUENZA TYPE A Negative For Type A (NEGATIVE); INFLUENZA TYPE B Negative For Type B (NEGATIVE)
[2024-01-24 11:49] LABS: CREATININE 1.2 mg/dL (0.5-1.3)
[2024-01-24] MEDS: IpraTROPium/alBUTERol SULFATE 3 ML SOLUTION IH ONE (11:51)
[2024-01-24 11:55] VITALS: PULSE 87; RESP 24
[2024-01-24 12:01] LABS: ABG BASE EXCESS 5.4 mmol/L (-2.0-3.0); ABG HCO3 28.8 mmol/L (21.0-28.0); ABG OXYGEN SATURATION 93.7 % (94.0-98.0); ABG PCO2 38 mmHg (35-48); ABG PH 7.497 (7.350-7.450); PO2, ARTERIAL BG 62.5 mmHg (83.0-108.0); VENT MODE, BG NC (ROOM AIR)
[2024-01-24 12:52] LABS: APPEARANCE,URINE CLEAR (CLEAR); BILIRUBIN,URINE NEGATIVE (NEGATIVE); COLOR,URINE LIGHT-YELLOW (YELLOW); GLUCOSE, URINE (UA) NEGATIVE (NEGATIVE); KETONES,URINE NEGATIVE (NEGATIVE); LEUKOCYTE ESTERASE ,URINE NEGATIVE Leu/uL (NEGATIVE); NITRATE,URINE NEGATIVE (NEGATIVE); OCCULT BLOOD,URINE NEGATIVE (NEGATIVE); PH,URINE 6.5 (5.0-8.0); PROTEIN,URINE 10 mg/dL (NEGATIVE); UROBILINOGEN,URINE 0.2 mg/dL (0.2-1.0)
[2024-01-24 12:52] LABS: B-TYPE NATRIURETIC PEPTIDE 383 pg/mL (0-100)
[2024-01-24 12:54] LABS: ADD UA MICROSCOPIC YES
[2024-01-24 13:00] LABS: RBC,URINE 0-1 /HPF (0-1); SQUAMOUS EPITHELIAL CELL,UR RARE /HPF (0-2); WBC,URINE 0-1 /HPF (0-1)
--- NOTE | 2024-01-24 13:40 | HMCIMG ---
CHEST 1VW HISTORY: Shortness of breath COMPARISON: 01/04/2024 FINDINGS: A frontal projection of the chest was obtained. There are bilateral pulmonary infiltrates suggestive of pulmonary vascular congestion with possible superimposed pneumonitis. The heart is borderline enlarged. Degenerative changes are seen. No evidence of aortic calcification is seen. IMPRESSION: 1. Bilateral pulmonary infiltrates are seen suggestive of pulmonary vascular congestion with possible superimposed pneumonitis.
[2024-01-24] MEDS ORDERED: polyETHYLene GLYCol 3350 17 GM POWD.PACK PO PRN (14:00)
[2024-01-24] MEDS ORDERED: DiphenhydrAMINE HCL 50 MG/ML VIAL IV PRN (14:00)
[2024-01-24] MEDS ORDERED: guaiFENesin SUGAR-FREE 100 MG/5 ML UDCUP PO PRN (14:00)
[2024-01-24] MEDS ORDERED: BENZOCAINE/MENTH/CETYLPYRD CL 1 EACH LOZENGE MM PRN (14:00)
[2024-01-24] MEDS ORDERED: LOPERAMIDE HCL 2 MG CAP PO PRN (14:00)
[2024-01-24] MEDS ORDERED: MAG/ALUM/SIMETH 30 ML UDCUP PO PRN (14:00)
[2024-01-24] MEDS ORDERED: ZOLPidem TARTrate 5 MG TAB PO PRN (14:00)
[2024-01-24] MEDS ORDERED: ALPRAZolam 0.5 MG TABLET PO PRN (14:00)
[2024-01-24] MEDS ORDERED: NITROGLYCERIN 0.4 MG SL TAB SL PRN (14:00)
[2024-01-24] MEDS ORDERED: ARTIFICAL TEARS SOL 15 ML OP PRN (14:00)
[2024-01-24] MEDS ORDERED: doCUSate SODIUM 100 MG CAP PO PRN (14:00)
[2024-01-24] MEDS ORDERED: acetaMINOPHEN 325 MG TAB PO PRN ×2 (14:00)
[2024-01-24] MEDS ORDERED: LACTULOSE 20 GM/30 ML UDCUP PO PRN (14:00)
[2024-01-24] MEDS ORDERED: guaiFENesin-DM 200/20MG 10ML PO PRN (14:00)
[2024-01-24] MEDS ORDERED: ondanSETRON 4MG INJ IV PRN (14:00)
[2024-01-24 14:43] VITALS: PULSE 82; RESP 20
[2024-01-24] MEDS: IpraTROPium/alBUTERol SULFATE 3 ML SOLUTION IH SCH (14:43)
[2024-01-24 14:48] VITALS: PULSE 82; RESP 20; O2SAT 93
--- NOTE | 2024-01-24 15:06 | HP ---
[facility] HISTORY & PHYSICAL Date Patient Seen: Jan 24, 2024 Time of Visit: 14:51 Supervising Physician: Dr Manohar Conn Primary Care Physician: Manohar Melo Outpatient Specialists: [Dr Jessenia Currie Inpatient Consults: [ ] PROBLEM LIST: Acute on chronic hypoxic respiratory failure Acute on chronic COPD exacerbation Chronic CHF with reduced EF- LVEF 40-45% (2d echo 12/30) Allergic rhinitis Type 2 DM w/ hyperglycemia Essential Hypertension Hyperlipidemia Hx of 40+ years tobacco use Hx of prostate surgery HPI: Mr. Chen Patel is an 78 year old male with a past medical history of dm, htn, hld, copd, heart failure presents to the emergency room with a chief complaint of shortness of breath with an onset of several days ago which has progressively worsened. Pt reports he was recently discharged from this facility and was to have oxygen for home arranged however it was never delivered. Pt reports he has been dealing with this shortness of breath and has worsened throughout the last couple of days therefore he came in for further evaluation. Pt denies chest pain, nausea, vomiting, or abd pain. Pt reports compliance with medications as previously prescribed. No other complaints at this time. PAST MEDICAL HX: see above PAST SURGICAL HX: noncontributory SOCIAL HISTORY: No tobacco, ETOH, or illicit drug use Coded Allergies: Penicillins (Verified Allergy, 01/27/13) REVIEW OF SYSTEMS: 12 point ROS reviewed with patient. Pertinent positives mentioned above. Otherwise negative. PHYSICAL EXAM: GENERAL: alert, weak, awake oriented x 3 HEENT: EOMI, Sclera non icteric, moist mucosa NECK: Supple, no JVD, trachea midline LUNGS: scattered wheezing bilaterally HEART: Regular rate and rhythm. Normal S1 and S2, without murmurs ABD: Abdomen soft, nontender. Bowel sounds present EXT: No clubbing cyanosis or edema NEURO: Alert and oriented to person, follows commands Vital Signs (last 8hr) Date Time Temp Pulse Resp B/P (MAP) Pulse Ox O2 Delivery O2 Flow Rate FiO2 01/24/24 14:48 82 20 N/Cannula Low lpm 2.0 01/24/24 14:43 82 20 01/24/24 13:33 98.4 88 24 113/43 92 Nasal Cannula* 3 32 01/24/24 11:55 87 24 01/24/24 11:47 95 20 101/33 96 Nasal Cannula* 3 32 01/24/24 10:54 98.4 101 20 118/65 97 Nasal Cannula 2.0 LABS: Hematology Labs: Test 01/24/24 11:32 Range/Units White Blood Count 12.5 H 4.8-10.8 K/uL Red Blood Count 3.88 L 4.50-6.20 MIL/uL Hemoglobin 11.9 L 14.0-18.0 g/dL Hematocrit 36.7 L 42-54 % Mean Corpuscular Volume 94.6 79-99 fL Mean Corpuscular Hemoglobin 30.7 27.0-33.0 pg Mean Corpuscular Hemoglobin Concent 32.4 32.0-36.0 g/dL Red Cell Distribution Width 13.7 11.0-15.5 % Platelet Count 195 130-400 K/uL Mean Platelet Volume 8.8 7.5-10.5 fL Immature Granulocyte % (Auto) 0.6 0-1 % Neutrophils (%) (Auto) 92.2 H 40.0-77.0 % Lymphocytes (%) (Auto) 3.5 L 21.0-51.0 % Monocytes (%) (Auto) 3.4 3.0-13.0 % Eosinophils (%) (Auto) 0.1 0.0-8.0 % Basophils (%) (Auto) 0.2 0.0-5.0 % Neutrophils # (Auto) 11.6 H 1.8-7.7 K/uL Lymphocytes # (Auto) 0.4 L 1.0-4.8 K/uL Monocytes # (Auto) 0.4 0.1-1.0 K/uL Eosinophils # (Auto) 0.01 0.00-0.70 K/uL Basophils # (Auto) 0.02 0.00-0.20 K/uL Absolute Immature Granulocyte (auto 0.08 0-1 K/uL Nucleated Red Blood Cells 0.0 0.0-0.19 % White Cell Morphology Comment See comments Chemistry Labs: Test 01/24/24 11:32 Range/Units Sodium Level 136 136-145 mmol/L Potassium Level 4.0 3.5-5.1 mmol/L Chloride Level 99 L 101-111 mmol/L Carbon Dioxide Level 31 21-32 mmol/L Blood Urea Nitrogen 21 H 7-18 mg/dL Creatinine 1.2 0.5-1.3 mg/dL Glomerular Filtration Rate Calc 61 >90 mL/min Random Glucose 180 H 70-105 mg/dL Total Calcium 9.1 8.5-10.1 mg/dL Troponin I High Sensitivity 48 4-75 ng/L B-Type Natriuretic Peptide 383 H 0-100 pg/mL DIAGNOSTICS / RADIOLOGY RESULTS: PATIENT: CHEN PATEL MR#: [id number] : 1945 SEX: M AGE: 78 LOCATION: [facility] ORDER 1107 STATUS: REG ER REPORT#: [id number] SERVICE 110 REASON: Shortness of breath ORDERING PHYSICIAN: GAYE MACHADO MD PROCEDURE: CXR1VW - CHEST 1VW CHEST 1VW HISTORY: Shortness of breath COMPARISON: 01/04/2024 FINDINGS: A frontal projection of the chest was obtained. There are bilateral pulmonary infiltrates suggestive of pulmonary vascular congestion with possible superimposed pneumonitis. The heart is borderline enlarged. Degenerative changes are seen. No evidence of aortic calcification is seen. IMPRESSION: 1. Bilateral pulmonary infiltrates are seen suggestive of pulmonary vascular congestion with possible superimposed pneumonitis. DICTATED BY: ELIZABETH ROA MD DATE: 01/24/24 1335 ELECTRONICALLY SIGNED BY: ELIZABETH ROA MD DATE: 01/24/24 1340 PLAN NEURO: Minimize central acting medications as possible. Maintain fall precautions, adequate lighting during the day PULMONARY: Supplemental 02 as needed. Bipap nightly and PRN Duonebs q 4 hours Montelukast 10mg po daily Solumedrol 40mg iv q 8 hours x 24 hours CM to arrange home 02 Outpt f/u in pulmonary clinic 2 weeks post discharge Maintain aspiration precautions at all times CARDIOVASCULAR: Follow hemodynamics. Vital signs per facility protocol Lasix 40mg IV q 12 hours x 4 doses GI & NUTRITION: Continue with nutritional support. Continue stool softeners and laxatives as needed. KIDNEYS & ELECTROLYTES: Strict monitoring of intake, output and overall fluid balance. Avoid nephrotoxic medications to the extent possible. Medications to be dosed according to renal function. Monitor electrolytes and replace as needed ENDOCRINE: Maintain blood glucose between 100-180 at all times. Hypoglycemia protocol in place INFECTIOUS DISEASE: Trend temperature, WBC and procalcitonin level Follow cultures, deescalate antibiotics as soon as possible. Panculture if new onset fever ONCOLOGY/HEMATOLOGY/COAGULATION: Monitor for s/s of bleeding Monitor hemoglobin, coagulation studies as needed SKIN: Pressure ulcer prevention per facility protocol Specialty mattress ORTHO/REHAB: Continue PT/OT Prophylaxis: Continue GI and DVT prophylaxis Code Status: Full Resuscitation Disposition: Home once medically stable for discharge. Other: Total patient care time exceeds 35 minutes excluding all procedures. ATTESTATION BY PHYSICIAN The patient has been seen and evaluated, the case has been discussed with the HVAC/R INSTRUCTOR, I agree with the clinical findings and plan of care. Johnny Conn MD, ECTOR N HVAC/R INSTRUCTOR Jan 24, 2024 15:06
[2024-01-24] MEDS: furoSEMIDE 40MG VIAL IV SCH (15:19)
[2024-01-24] MEDS: monteLUKAST sodIUM 10 MG TAB PO SCH (15:19)
[2024-01-24] MEDS: ARTIFICAL TEARS SOL 15 ML OP PRN (15:20)
[2024-01-24] MEDS: Solu-medROL 40MG VIAL IVP SCH (15:21)
[2024-01-24] MEDS: INSULIN humuLIN R 100 UNIT/ML 3ML SQ SCH (17:08)
[2024-01-24] MEDS ORDERED: IOHEXOL-350 75 ML VIAL IV ONE (19:27)
[2024-01-24] MEDS: FAMOTIDINE 20MG TAB PO SCH (20:00)
--- NOTE | 2024-01-24 20:02 | HMCIMG ---
CT angiogram chest CLINICAL INDICATION: ELEVATED D DIMER COMPARISON: None. CT Dose Index (CTDI): 113.50 mGy Dose Length Product (DLP): 1408.10 total mGy PROTOCOL: Contrast: 100 cc of Isovue-370, injected IV, no complications Examination is done at 2.5 millimeter volumetric acquisition after contrast administration. Photography is done at 5 millimeter thick intervals for the thorax. FINDINGS: There is no evidence of pulmonary embolism. The airway is intact. The trachea and major bronchi are unremarkable. Bilateral lower lobe infiltrates consistent with pneumonia. No pleural effusions are identified. The exam of the john and mediastinum is unremarkable. No evidence of hilar enlargement is seen. The aorta shows no aneurysmal dilatation or significant atheromatous calcification. There is no thoracic aortic dissection. No significant brachiocephalic vascular abnormalities are seen. The heart is unremarkable. It is not enlarged. No significant coronary arterial calcifications are seen. There is no pericardial effusion. The rib cage appears unremarkable. The soft tissues of the chest wall are unremarkable. The dorsal spine shows no significant abnormalities. Limited evaluation of the upper abdomen demonstrates no gross abnormalities. IMPRESSION: No evidence of pulmonary embolism. Bilateral lower lobe pneumonia. Follow-up to complete radiographic resolution is advised. This study was performed using dose reduction techniques to include automated exposure control and/or adjustment of the mA and/or kV according to patient size.
[2024-01-24 22:57] VITALS: PULSE 70; RESP 19
[2024-01-24 22:58] VITALS: PULSE 70; RESP 19; O2SAT 98
[2024-01-25] VITALS (10 sets, daily range): BP systolic 138; BP diastolic 76; PULSE 71–125; RESP 18–26; TEMP 97.9; O2SAT 88–97
[2024-01-25] MEDS ORDERED: VANCOMYCIN PROTOCOL PER PHARMACY IV SCH (08:30)
--- NOTE | 2024-01-25 08:45 | EKG ---
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
[2024-01-25] MEDS ORDERED: levoFLOXacin 750 MG/D5W 150 ML 150 ML IV SCH (09:00)
--- NOTE | 2024-01-25 09:39 | NUR ---
O2 for home Kellie and EMELIA Miller reviewed note from previous admission. Pt that time pt did not qualify for home O2. Pt stats were 95 and 96%. Per CM, pt currently at 93-97% and still will not qualify. Walk test will need to be done again. Kellie spoke to Ariana at [facility]. Per Ariana, Dr Lagos's office sent in referral and at that time pt was at 87%, but there was order and they are waiting for Dr Lagos's office to complete. Since pt is now at hospital, we can make referral if pt meets criteria Nurse Busch informed of need for O2 eval, and consent on chart for [facility] in case pt does qualify, it can be arranged.
[2024-01-25 09:45] LABS: BASOPHILS # (AUTO) 0.02 K/uL (0.00-0.20); BASOPHILS % (AUTO) 0.2 % (0.0-5.0); HEMATOCRIT 38.4 % (42-54); IMMATURE GRANULOCYTE ABSOLUTE 0.11 K/uL (0-1); LYMPHOCYTES # (AUTO) 0.2 K/uL (1.0-4.8); LYMPHOCYTES % (AUTO) 1.4 % (21.0-51.0); MEAN CORPUSCULAR HEMOGLOBIN 30.5 pg (27.0-33.0); MEAN CORPUSCULAR VOLUME 95.3 fL (79-99); MONOCYTES # (AUTO) 0.4 K/uL (0.1-1.0); MONOCYTES % (AUTO) 3.3 % (3.0-13.0); NEUTROPHILS # (AUTO) 12.6 K/uL (1.8-7.7); NEUTROPHILS % (AUTO) 94.3 % (40.0-77.0); PLATELET COUNT (AUTO) 186 K/uL (130-400); RED BLOOD CELL COUNT(AUTO) 4.03 MIL/uL (4.50-6.20); RED CELL DISTRIBUTION WIDTH 13.5 % (11.0-15.5); WHITE BLOOD COUNT (AUTO) 13.3 K/uL (4.8-10.8)
[2024-01-25 09:55] LABS: ALBUMIN 2.4 g/dL (3.5-5.0); BILIRUBIN,TOTAL 0.5 mg/dL (0.2-1.0); CREATININE 1.2 mg/dL (0.5-1.3); TOTAL PROTEIN, SERUM 6.8 g/dL (6.0-8.3)
[2024-01-25] MEDS: ENOXAPARIN SODIUM 30 MG/0.3 ML SQ SCH (09:55)
[2024-01-25 09:57] LABS: POTASSIUM 2.8 mmol/L (3.5-5.1)
[2024-01-25] MEDS ORDERED: PoTASSium chl 10% ELIXIR 20MEQ 20 MEQ/15 ML UDCUP PO PRN (10:00)
--- NOTE | 2024-01-25 10:01 | PN ---
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 To not be given in the absence of backup pacemaker. Hx of 40+ years tobacco use Hx of prostate surgery INTERVAL HISTORY: Patient is awake alert and oriented x3 currently on 2 L via nasal cannula saturating 96%, heart rate sinus tachy 103, respiratory rate of 22, and afebrile with a temperature 97.2. Patient reports feeling much better and breathing easier. Denies any cough, denies palpitation shortness breath or chest pain. On laboratory this morning white count is 13.3 slightly increased from yesterday H&H is 12.3/30.4 platelet count is normal neutrophils are elevated 94.3. Chemistries sodium 136 potassium was 2.8, replace per protocol carbon dioxide 33 BUN 27 creatinine of 1.2 with a GFR of 61 glucose is 286 mg/dL albumin of 2.4. Influenza type a and B negative. SARS COVID-19 negative, strep throat negative. Patient has been started on Levaquin and vancomycin due to history of COPD and recent hospitalization provided MRSA coverage. Patient failed 6 minute walk we will require home O2 case management is aware. Respiratory culture to be collected for now. REVIEW OF SYSTEMS: 12 point ROS reviewed with patient. Pertinent positives mentioned above. Otherwise negative. PHYSICAL EXAM: GENERAL: alert, weak, awake oriented x 3 HEENT: EOMI, Sclera non icteric, moist mucosa NECK: Supple, no JVD, trachea midline LUNGS: Diminished bilateral lobes, no wheezing HEART: Regular rate and rhythm. Normal S1 and S2, without murmurs ABD: Abdomen soft, nontender. Bowel sounds present EXT: No clubbing cyanosis or edema NEURO: Alert and oriented to person, follows commands Vital Signs (last 8hr) Date Time Temp Pulse Resp B/P (MAP) Pulse Ox O2 Delivery O2 Flow Rate FiO2 01/25/24 07:27 97.2 94 17 137/58 93 Nasal Cannula* 2 28 01/25/24 07:06 91 18 N/Cannula Low lpm 2.0 01/25/24 07:04 91 19 01/25/24 05:27 97.2 84 19 134/54 97 Nasal Cannula* 4 36 LABS: Hematology Labs: Test 01/25/24 09:20 01/24/24 11:32 Range/Units White Blood Count 13.3 H 4.8-10.8 K/uL Red Blood Count 4.03 L 4.50-6.20 MIL/uL Hemoglobin 12.3 L 14.0-18.0 g/dL Hematocrit 38.4 L 42-54 % Mean Corpuscular Volume 95.3 79-99 fL Mean Corpuscular Hemoglobin 30.5 27.0-33.0 pg Mean Corpuscular Hemoglobin Concent 32.0 32.0-36.0 g/dL Red Cell Distribution Width 13.5 11.0-15.5 % Platelet Count 186 130-400 K/uL Mean Platelet Volume 9.2 7.5-10.5 fL Immature Granulocyte % (Auto) 0.8 0-1 % Neutrophils (%) (Auto) 94.3 H 40.0-77.0 % Lymphocytes (%) (Auto) 1.4 L 21.0-51.0 % Monocytes (%) (Auto) 3.3 3.0-13.0 % Eosinophils (%) (Auto) 0.0 0.0-8.0 % Basophils (%) (Auto) 0.2 0.0-5.0 % Neutrophils # (Auto) 12.6 H 1.8-7.7 K/uL Lymphocytes # (Auto) 0.2 L 1.0-4.8 K/uL Monocytes # (Auto) 0.4 0.1-1.0 K/uL Eosinophils # (Auto) 0.00 0.00-0.70 K/uL Basophils # (Auto) 0.02 0.00-0.20 K/uL Absolute Immature Granulocyte (auto 0.11 0-1 K/uL Nucleated Red Blood Cells 0.0 0.0-0.19 % White Cell Morphology Comment See comments Chemistry Labs: Test 01/25/24 09:20 01/25/24 08:35 01/24/24 11:32 Range/Units Sodium Level 136 136-145 mmol/L Potassium Level 2.8 *L 3.5-5.1 mmol/L Chloride Level 99 L 101-111 mmol/L Carbon Dioxide Level 33 H 21-32 mmol/L Blood Urea Nitrogen 27 H 7-18 mg/dL Creatinine 1.2 0.5-1.3 mg/dL Glomerular Filtration Rate Calc 61 >90 mL/min Random Glucose 286 #H 70-105 mg/dL Total Calcium 9.2 8.5-10.1 mg/dL Total Bilirubin 0.5 0.2-1.0 mg/dL Aspartate Amino Transf (AST/SGOT) 8 L 10-37 U/L Alanine Aminotransferase (ALT/SGPT) 19 12-78 U/L Alkaline Phosphatase 63 50-136 U/L Total Protein 6.8 6.0-8.3 g/dL Albumin 2.4 L 3.5-5.0 g/dL Whole Blood Glucose 214 H 70-110 MG/DL Troponin I High Sensitivity 48 4-75 ng/L B-Type Natriuretic Peptide 383 H 0-100 pg/mL Coagulation Labs: Test 01/24/24 11:32 Range/Units D-Dimer Quantitative (PE/DVT) 906 *H 0-500 ng/mL DIAGNOSTICS / RADIOLOGY RESULTS: [IMAGING REPORT Signed PATIENT: CHEN PATEL MR#: [id number] : 1945 SEX: M AGE: 78 LOCATION: [facility] ORDER 17 STATUS: ADM IN REPORT#: [id number] SERVICE 11 REASON: ELEVATED D DIMER ORDERING PHYSICIAN: AMISH IVORY NP PROCEDURE: CHES PE - CT CHEST PE PROTOCOL WWO CONT CT angiogram chest CLINICAL INDICATION: ELEVATED D DIMER COMPARISON: None. CT Dose Index (CTDI): 113.50 mGy Dose Length Product (DLP): 1408.10 total mGy PROTOCOL: Contrast: 100 cc of Isovue-370, injected IV, no complications Examination is done at 2.5 millimeter volumetric acquisition after contrast administration. Photography is done at 5 millimeter thick intervals for the thorax. FINDINGS: There is no evidence of pulmonary embolism. The airway is intact. The trachea and major bronchi are unremarkable. Bilateral lower lobe infiltrates consistent with pneumonia. No pleural effusions are identified. The exam of the john and mediastinum is unremarkable. No evidence of hilar enlargement is seen. The aorta shows no aneurysmal dilatation or significant atheromatous calcification. There is no thoracic aortic dissection. No significant brachiocephalic vascular abnormalities are seen. The heart is unremarkable. It is not enlarged. No significant coronary arterial calcifications are seen. There is no pericardial effusion. The rib cage appears unremarkable. The soft tissues of the chest wall are unremarkable. The dorsal spine shows no significant abnormalities. Limited evaluation of the upper abdomen demonstrates no gross abnormalities. IMPRESSION: No evidence of pulmonary embolism. Bilateral lower lobe pneumonia. Follow-up to complete radiographic resolution is advised. This study was performed using dose reduction techniques to include automated exposure control and/or adjustment of the mA and/or kV according to patient size. DICTATED BY: CHRIS BLISS MD DATE: 01/24/241955 ELECTRONICALLY SIGNED BY: CHRIS BLISS MD DATE: 01/24/242001 PLAN NEURO: Minimize central acting medications as possible. Maintain fall precautions, adequate lighting during the day PULMONARY: Supplemental 02 as needed. Bipap nightly and PRN Duonebs q 4 hours Montelukast 10mg po daily Solumedrol 40mg iv q 8 hours x 24 hours CM to arrange home 02 Outpt f/u in pulmonary clinic 2 weeks post discharge Maintain aspiration precautions at all times CARDIOVASCULAR: Follow hemodynamics. Vital signs per facility protocol Resume Lasix from home to 40 mg p.o. daily. Telemetry monitoring GI & NUTRITION: Continue with nutritional support. Continue stool softeners and laxatives as needed. Heart healthy diet Low-sodium diet KIDNEYS & ELECTROLYTES: Strict monitoring of intake, output and overall fluid balance. Avoid nephrotoxic medications to the extent possible. Medications to be dosed according to renal function. Monitor electrolytes and replace as needed ENDOCRINE: Maintain blood glucose between 100-180 at all times. Hypoglycemia protocol in place Lantus subQ b.i.d. Regular insulin sliding scale INFECTIOUS DISEASE: Trend temperature, WBC and procalcitonin level Follow cultures, deescalate antibiotics as soon as possible. Panculture if new onset fever Vancomycin Zosyn Respiratory culture ONCOLOGY/HEMATOLOGY/COAGULATION: Monitor for s/s of bleeding Monitor hemoglobin, coagulation studies as needed SKIN: Pressure ulcer prevention per facility protocol Specialty mattress ORTHO/REHAB: Continue PT/OT Prophylaxis: Continue GI and DVT prophylaxis Code Status: Full Resuscitation Disposition: Home once medically stable for discharge. Other: Total patient care time exceeds 35 minutes excluding all procedures. TIARA MOBLEY DRAMATIC TEACHER Jan 25, 2024 10:01
[2024-01-25] MEDS: levoFLOXacin 500 MG TABLET PO ONE (10:14)
[2024-01-25] MEDS: VANCOMYCIN 1.75 GM/250 ML BAG 250 ML IV ONE (10:18)
--- NOTE | 2024-01-25 10:25 | NUR ---
DCP: HOME - Possible O2 for Home Sw met with pt and his daughter Tamika Shaffer [phone]. Pt was discharged home 01/02, at that time did not qualify for home o2. Per daughter, pt becomes easily SOB with any activity and requires assistance from his Valerie Harden [phone].Pt has a walker with seat, no HH or HD services. PCP is Dr Lagos and uses [facility] in [place] for rx. Per daughter, dcp is home and O2 if pt qualifies. Addendum: 01/25/24 at 1027 by KRISTIAN GRACE Amended: Links added.
[2024-01-25] MEDS: SODIUM CHLORIDE 3% FOR INHALATION 4 ML/AMP VIAL.NEB IH ONE (10:35)
[2024-01-25] MEDS: PoTASSium chloRIDE 20MEQ ER 20 MEQ ERTAB PO PRN (12:04)
[2024-01-25] MEDS: PoTASSium chloRIDE 20MEQ/100ML 100 ML IV PRN (12:17)
[2024-01-25] MEDS: INSULIN GLARgine 100 UNITS/ML 10 ML VIAL SQ SCH (15:22)
--- NOTE | 2024-01-25 15:48 | NUR ---
DC PLAN RECEIVED CALL FROM JEREMY GRACE SAID PATIENT QUALIFIED FOR HOME 02. EMELIA ASKED LESLY FOR MELISSA FOR [facility]. SINCE PATIENT HAD BEEN TRYING TO GET FROM THEM ALREADY FROM DR. MONTES OFFICE. PER [facility] ORDERS WERE NEVER RETURNED. EMELIA MADE PACKET. FAXED TO [facility] AND TO LOCAL OFFICE. V[facility]CE [facility] AWARE REFERRAL SENT AND THAT MIGHT NOT GET AUTH TODAY. Addendum: 01/25/24 at 1554 by SAIDA KOROMA RN CM Amended: Links added.
--- NOTE | 2024-01-25 17:40 | NUR ---
1739 CALLED TO GIVE REPORT, NURSE ANSWERED STATES SHE WILL CALL ME BACK SHE IS W/ DOCTOR.
--- NOTE | 2024-01-25 18:10 | NUR ---
REPORT GIVEN TO DEMETRIA BOB, PT STABLE AAOX4 PT NO DISTRESS, VITALS WNL NO C/O PAIN. PT TRANSFERRED VIA W/C THIS PERSONAL BELONGINGS. DAUGHTER AT SIDE.
[2024-01-25] MEDS: PANTOPrazole 40 MG/VIAL IVP SCH (21:28)
[2024-01-25] MEDS: RANOLAZINE 500 MG TAB.SR.12H PO SCH (21:28)
[2024-01-26] VITALS (16 sets, daily range): BP systolic 117–143; BP diastolic 57–67; PULSE 69–91; RESP 18–20; TEMP 97.6–98.7; O2SAT 96–97
[2024-01-26] MEDS: Solu-medROL 40MG VIAL IVP SCH (02:35)
[2024-01-26 07:41] LABS: BASOPHILS # (AUTO) 0.01 K/uL (0.00-0.20); BASOPHILS % (AUTO) 0.1 % (0.0-5.0); HEMATOCRIT 35.2 % (42-54); IMMATURE GRANULOCYTE ABSOLUTE 0.05 K/uL (0-1); LYMPHOCYTES # (AUTO) 0.2 K/uL (1.0-4.8); LYMPHOCYTES % (AUTO) 2.3 % (21.0-51.0); MEAN CORPUSCULAR HEMOGLOBIN 29.9 pg (27.0-33.0); MEAN CORPUSCULAR HGB CONC 31.5 g/dL (32.0-36.0); MEAN CORPUSCULAR VOLUME 94.9 fL (79-99); MONOCYTES # (AUTO) 0.3 K/uL (0.1-1.0); MONOCYTES % (AUTO) 2.7 % (3.0-13.0); NEUTROPHILS # (AUTO) 9.3 K/uL (1.8-7.7); NEUTROPHILS % (AUTO) 94.4 % (40.0-77.0); PLATELET COUNT (AUTO) 196 K/uL (130-400); RED BLOOD CELL COUNT(AUTO) 3.71 MIL/uL (4.50-6.20); RED CELL DISTRIBUTION WIDTH 13.7 % (11.0-15.5); WHITE BLOOD COUNT (AUTO) 9.8 K/uL (4.8-10.8)
[2024-01-26 07:53] LABS: ALBUMIN 2.2 g/dL (3.5-5.0); BILIRUBIN,TOTAL 0.4 mg/dL (0.2-1.0); CREATININE 1.1 mg/dL (0.5-1.3); POTASSIUM 3.9 mmol/L (3.5-5.1); TOTAL PROTEIN, SERUM 6.3 g/dL (6.0-8.3)
[2024-01-26] MEDS ORDERED: NON-FORMULARY MEDICATION 1 EACH (Omeprazole 1 CAP) PO SCH (09:00)
[2024-01-26] MEDS: levoFLOXacin 250 MG/D5W 50ML 50 ML IVPB SCH (10:10)
[2024-01-26] MEDS: cloPIDOgrel 75MG TAB PO SCH (10:22)
[2024-01-26] MEDS: LOSARTAN/HYDROCHLOROTHIAZIDE 50-12.5MG TABLET PO SCH (10:22)
[2024-01-26] MEDS: furoSEMIDE 40 MG TABLET PO SCH (10:22)
--- NOTE | 2024-01-26 10:23 | HMCIMG ---
CHEST 1VW HISTORY: Hypoxia COMPARISON: None FINDINGS: A frontal projection of the chest was obtained. Mild bilateral pulmonary infiltrates are seen may be related to mild pulmonary vascular congestion with possible superimposed pneumonitis. The heart is borderline enlarged. Degenerative changes are seen. No evidence of aortic calcification is seen. IMPRESSION: 1. Mild bilateral pulmonary infiltrates are seen may be related to mild pulmonary vascular congestion with possible superimposed pneumonitis.
[2024-01-26] MEDS: VANCOMYCIN 1.25 GM/250 ML BAG 250 ML IV SCH ×2 (12:00→12:24)
[2024-01-26] MEDS ORDERED: PRED20TA3 PO (12:32)
[2024-01-26] MEDS ORDERED: LEVO750T68 PO (12:36)
--- NOTE | 2024-01-26 12:37 | DS ---
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 To not be given in the absence of backup pacemaker. Hx of 40+ years tobacco use Hx of prostate surgery HOSPITAL COURSE: HPI (per admitting provider) Mr. Lona Benton is an 78 year old male with a past medical history of dm, htn, hld, copd, heart failure presents to the emergency room with a chief complaint of shortness of breath with an onset of several days ago which has progressively worsened. Pt reports he was recently discharged from this facility and was to have oxygen for home arranged however it was never delivered. Pt reports he has been dealing with this shortness of breath and has worsened thr oughout the last couple of days therefore he came in for further evaluation. Pt denies chest pain, nausea, vomiting, or abd pain. Pt reports compliance with medications as previously prescribed. No other complaints at this time. Patient is awake alert and oriented x3 currently on 2 L via nasal cannula saturating 96%, heart rate sinus tachy 103, respiratory rate of 22, and afebrile with a temperature 97.2. Patient reports feeling much better and breathing easier. Denies any cough, denies palpitation shortness breath or chest pain. On laboratory this morning white count is 13.3 slightly increased from yesterday H&H is 12.3/30.4 platelet count is normal neutrophils are elevated 94.3. Chemistries sodium 136 potassium was 2.8, replace per protocol carbon dioxide 33 BUN 27 creatinine of 1.2 with a GFR of 61 glucose is 286 mg/dL albumin of 2.4. Influenza type a and B negative. SARS COVID-19 negative, strep throat negative. Patient has been started on Levaquin and vancomycin due to history of COPD and recent hospitalization provided MRSA coverage. Patient failed 6 minute walk we will require home O2 case management is aware. Respiratory culture to be collected for now. Today patient is seen sitting up in a chair accompanied by multiple family members. Patient is awake alert and oriented x4. Patient reports his respiratory status is back to baseline. No wheezing noted on exam. Patient does continue on 2 L via nasal cannula. He did fail his 6 minute walk test and home O2 is being arranged by case management. Patient has been advised to follow up with PCP in the next 1-2 days. Patient has been advised to follow up with Pulmonary Clinic in 1-2 weeks. Patient to continue oral antibiotics as prescribed. Patient verbalized understanding. Vital signs are stable. Labs are within normal limits. Medication reconciliation has been completed. New prescriptions have been sent to patient's pharmacy. Education regarding current diagnosis been provided to the patient. All questions have been answered. Patient to be discharged home once O2 is delivered. The patient was treated for the following problems: ACTIVE PROBLEM LIST FOR THE HOSPITALIZATION: Sepsis POA ruled out Lower bilateral lobe community-acquired pneumonia, POA SMART-MEDICAID ANALYST score 2 points ( Low Risk) ruled out Acute on chronic hypoxic respiratory failure, POA resolved Acute on chronic COPD exacerbation resolved Chronic CHF with reduced EF- LVEF 40-45% (2d echo 12/30) Allergic rhinitis Type 2 DM w/ hyperglycemia Essential Hypertension Hyperlipidemia Per previous cardiology history patient does not tolerate even low-dose of metoprolol given less than 2nd pauses. To not be given in the absence of backup pacemaker. 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 PCP notified of patients admission, hospital course and discharge. New Medications: Prednisone (Prednisone) 20 Mg Tablet 40 MG PO DAILY for 10 Days, #10 TAB Continued Medications: Budesonide (Budesonide) 0.5 Mg/2 Ml Ampul.neb 1 VIAL NEB BID for 15 Days, #120 ML 0 Refills Clopidogrel Bisulfate (Plavix) 75 Mg Tablet 75 MG PO DAILY, #30 TAB 1 Refill Furosemide (Lasix 40Mg Tab) 40 Mg Tablet 40 MG PO DAILY, #30 TAB 1 Refill Levofloxacin (Levaquin 750Mg Tabs) 750 Mg Tablet 750 MG PO DAILY, #7 TAB 0 Refills (This prescription has been renewed) Losartan/Hydrochlorothiazide (Losartan-Hctz 50-12.5 mg Tab) 50 Mg-12.5 Mg Tablet 1 TAB PO DAILY for 30 Days, #30 TAB 0 Refills Montelukast Sodium (Singulair 10Mg) 10 Mg Tab 10 MG PO HS, #30 TAB 0 Refills Omeprazole (Omeprazole) 40 Mg Capsule.dr 1 CAP PO DAILY for 30 Days, #30 CAP 0 Refills Pioglitazone HCl (Pioglitazone HCl) 30 Mg Tablet 1 TAB PO DAILY for 30 Days, #30 TAB 0 Refills Ranolazine (Ranolazine ER) 500 Mg Tab.er.12h 1 TAB PO BID for 30 Days, #60 TAB 0 Refills Umeclidinium [place] (Incruse Ellipta) 62.5 Mcg Blst.w.dev 62.5 MCG IH DAILY Discontinued Medications: Meloxicam (Meloxicam) 7.5 Mg Tablet 1 TAB PO DAILY for 30 Days, #30 TAB 0 Refills Oseltamivir Phosphate (Tamiflu) 75 Mg Cap 75 MG PO BID, #8 CAP 0 Refills PHYSICAL EXAM: GENERAL: alert, weak, awake oriented x 3 HEENT: EOMI, Sclera non icteric, moist mucosa NECK: Supple, no JVD, trachea midline LUNGS: Diminished bilateral lobes, no wheezing HEART: Regular rate and rhythm. Normal S1 and S2, without murmurs ABD: Abdomen soft, nontender. Bowel sounds present EXT: No clubbing cyanosis or edema NEURO: Alert and oriented to person, follows commands FOLLOW-UP: Follow-up with PCP in 2-3 days Follow up with Pulmonary Clinic in 1-2 weeks DME for Home O2 RECOMMENDATIONS: See Discharge Instructions This case was seen and discussed with my supervising physician. More than 30 minutes spent on discharge process, including evaluation of the patient, discussion with nursing staff, medication reconciliation and follow-up appointments ATTESTATION BY PHYSICIAN I have evaluated the patient chart, medical records, and spoke with appropriate staff. I reviewed the documentation, medical decision making, and treatment plan as noted by the mid-level provider above. I agree with the findings and plan of care. Enrique Ferguson MD, ECTOR N BOWLING OR SKATING FRONT DESK CLERK Jan 26, 2024 12:37
--- NOTE | 2024-01-26 17:14 | NUR ---
Discharge Update: New orders and respiratory assessment with Dr. Ferguson's signatures faxed to [facility]. Confirmation received and verified by phone also at 14:52. Two more calls placed for updates but no answer. Left 2 phone messages with answering service before 4:30 pm. Told Julia at answering service that patient has a discharge order and is just pending 02. States will try to get message to whoever is health information director. Still pending to hear from them.
--- NOTE | 2024-01-26 17:19 | NUR ---
[facility] Follow-up Waited on hold for about 10 minutes until rep answered. Rep was able to look up patient's information then requested CM to hold again to get ahold of driver courier. CM on hold for another 10 minutes and then rep patched CM through Enrike with [facility] who stated patient was not on their list but he would research it and then call this CM back to [phone].
--- NOTE | 2024-01-26 19:54 | NUR ---
[facility] Follow up Refaxed referral via right fax to [phone] per instruction of [facility] ([facility]) Rep. At 1851 this CM called to follow up since no call back was received from [facility]. CM also verified with daughter Tamika that [facility] has not reached out to her. Rep requested CM refax referral to [phone]. Updated daughter Tamika that CM is still trying to assist. CM to continue to follow.
[2024-01-26] MEDS ORDERED: FAMOTIDINE 20MG TAB PO SCH (21:00)
[2024-01-27] VITALS (14 sets, daily range): BP systolic 113–137; BP diastolic 59–65; PULSE 76–88; RESP 18–21; TEMP 97.4–98.8; O2SAT 95–97
[2024-01-27 08:25] LABS: BASOPHILS # (AUTO) 0.01 K/uL (0.00-0.20); BASOPHILS % (AUTO) 0.1 % (0.0-5.0); HEMATOCRIT 40.1 % (42-54); IMMATURE GRANULOCYTE ABSOLUTE 0.14 K/uL (0-1); LYMPHOCYTES # (AUTO) 0.3 K/uL (1.0-4.8); LYMPHOCYTES % (AUTO) 3.7 % (21.0-51.0); MEAN CORPUSCULAR HGB CONC 31.2 g/dL (32.0-36.0); MEAN CORPUSCULAR VOLUME 96.4 fL (79-99); MONOCYTES # (AUTO) 0.3 K/uL (0.1-1.0); MONOCYTES % (AUTO) 3.6 % (3.0-13.0); NEUTROPHILS # (AUTO) 8.2 K/uL (1.8-7.7); PLATELET COUNT (AUTO) 202 K/uL (130-400); RED BLOOD CELL COUNT(AUTO) 4.16 MIL/uL (4.50-6.20); RED CELL DISTRIBUTION WIDTH 13.6 % (11.0-15.5)
[2024-01-27 09:05] LABS: ALBUMIN 2.5 g/dL (3.5-5.0); BILIRUBIN,TOTAL 0.4 mg/dL (0.2-1.0); CREATININE 1.1 mg/dL (0.5-1.3); POTASSIUM 3.9 mmol/L (3.5-5.1)
--- NOTE | 2024-01-27 09:47 | NUR ---
EMELIANOTE Spoke to Stormy sharma. and [facility] no able to deliver this weekend, proceeded to explain to pt and pt in agreement for referral to [facility], and referral sent. pending acceptance. updated marlene emerson manpower development specialist on above.
--- NOTE | 2024-01-27 10:00 | NUR ---
cm note Referral sent to [facility], per [facility] rep will work on it. and let cm know if able to approve.
--- NOTE | 2024-01-27 11:35 | PN ---
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 To not be given in the absence of backup pacemaker. Hx of 40+ years tobacco use Hx of prostate surgery INTERVAL HISTORY: Patient is awake alert and oriented x3 currently on 2 L via nasal cannula saturating 96%, heart rate sinus tachy 103, respiratory rate of 22, and afebrile with a temperature 97.2. Patient reports feeling much better and breathing easier. Denies any cough, denies palpitation shortness breath or chest pain. On laboratory this morning white count is 13.3 slightly increased from yesterday H&H is 12.3/30.4 platelet count is normal neutrophils are elevated 94.3. Chemistries sodium 136 potassium was 2.8, replace per protocol carbon dioxide 33 BUN 27 creatinine of 1.2 with a GFR of 61 glucose is 286 mg/dL albumin of 2.4. Influenza type a and B negative. SARS COVID-19 negative, strep throat negative. Patient has been started on Levaquin and vancomycin due to history of COPD and recent hospitalization provided MRSA coverage. Patient failed 6 minute walk we will require home O2 case management is aware. Respiratory culture to be collected for now. 01/26 - today patient is seen and evaluated at the bedside. Patient is sitting up in a chair does not appear to be in any acute distress at this time. Patient was medically discharged yesterday however was informed by case management that [facility] was able to deliver his oxygen therefore patient remained in house. Vital signs are stable. No labs for review today. Patient may be discharged home once oxygen is delivered. Patient has been advised to follow up with PCP in the next 1-2 days. Patient has been advised to follow up in the Pulmonary Clinic in 1-2 weeks. Patient verbalized understanding. REVIEW OF SYSTEMS: 12 point ROS reviewed with patient. Pertinent positives mentioned above. Otherwise negative. PHYSICAL EXAM: GENERAL: alert, weak, awake oriented x 3 HEENT: EOMI, Sclera non icteric, moist mucosa NECK: Supple, no JVD, trachea midline LUNGS: Diminished bilateral lobes, no wheezing HEART: Regular rate and rhythm. Normal S1 and S2, without murmurs ABD: Abdomen soft, nontender. Bowel sounds present EXT: No clubbing cyanosis or edema NEURO: Alert and oriented to person, follows commands Vital Signs (last 8hr) Date Time Temp Pulse Resp B/P (MAP) Pulse Ox O2 Delivery O2 Flow Rate FiO2 01/27/24 10:33 80 18 01/27/24 08:00 98.8 83 19 137/65 95 Room Air 01/27/24 07:23 76 18 N/Cannula Low lpm 2.0 28 01/27/24 07:21 76 18 01/27/24 04:00 98.2 84 18 127/62 96 Nasal Cannula 3.0 LABS: Hematology Labs: Test 01/27/24 08:15 Range/Units White Blood Count 9.0 4.8-10.8 K/uL Red Blood Count 4.16 L 4.50-6.20 MIL/uL Hemoglobin 12.5 L 14.0-18.0 g/dL Hematocrit 40.1 L 42-54 % Mean Corpuscular Volume 96.4 79-99 fL Mean Corpuscular Hemoglobin 30.0 27.0-33.0 pg Mean Corpuscular Hemoglobin Concent 31.2 L 32.0-36.0 g/dL Red Cell Distribution Width 13.6 11.0-15.5 % Platelet Count 202 130-400 K/uL Mean Platelet Volume 8.8 7.5-10.5 fL Immature Granulocyte % (Auto) 1.6 H 0-1 % Neutrophils (%) (Auto) 91.0 H 40.0-77.0 % Lymphocytes (%) (Auto) 3.7 L 21.0-51.0 % Monocytes (%) (Auto) 3.6 3.0-13.0 % Eosinophils (%) (Auto) 0.0 0.0-8.0 % Basophils (%) (Auto) 0.1 0.0-5.0 % Neutrophils # (Auto) 8.2 H 1.8-7.7 K/uL Lymphocytes # (Auto) 0.3 L 1.0-4.8 K/uL Monocytes # (Auto) 0.3 0.1-1.0 K/uL Eosinophils # (Auto) 0.00 0.00-0.70 K/uL Basophils # (Auto) 0.01 0.00-0.20 K/uL Absolute Immature Granulocyte (auto 0.14 0-1 K/uL Nucleated Red Blood Cells 0.0 0.0-0.19 % Chemistry Labs: Test 01/27/24 08:15 01/26/24 19:10 01/26/24 07:00 01/25/24 16:55 Range/Units Sodium Level 138 136-145 mmol/L Potassium Level 3.9 3.5-5.1 mmol/L Chloride Level 100 L 101-111 mmol/L Carbon Dioxide Level 34 H 21-32 mmol/L Blood Urea Nitrogen 33 H 7-18 mg/dL Creatinine 1.1 0.5-1.3 mg/dL Glomerular Filtration Rate Calc 68 >90 mL/min Random Glucose 143 H 70-105 mg/dL Total Calcium 9.8 8.5-10.1 mg/dL Total Bilirubin 0.4 0.2-1.0 mg/dL Aspartate Amino Transf (AST/SGOT) 12 10-37 U/L Alanine Aminotransferase (ALT/SGPT) 25 12-78 U/L Alkaline Phosphatase 61 50-136 U/L Total Protein 7.0 6.0-8.3 g/dL Albumin 2.5 L 3.5-5.0 g/dL Whole Blood Glucose 236 H 70-110 MG/DL Procalcitonin 0.41 0.05-0.5 ng/mL Bedside Glucose Comment Notified Nurse DIAGNOSTICS / RADIOLOGY RESULTS: [ ] PLAN NEURO: Minimize central acting medications as possible. Maintain fall precautions, adequate lighting during the day PULMONARY: Supplemental 02 as needed. Bipap nightly and PRN Duonebs q 4 hours Montelukast 10mg po daily Solumedrol 40mg iv q 8 hours x 24 hours CM to arrange home 02 Outpt f/u in pulmonary clinic 2 weeks post discharge Maintain aspiration precautions at all times CARDIOVASCULAR: Follow hemodynamics. Vital signs per facility protocol Resume Lasix from home to 40 mg p.o. daily. Telemetry monitoring GI & NUTRITION: Continue with nutritional support. Continue stool softeners and laxatives as needed. Heart healthy diet Low-sodium diet KIDNEYS & ELECTROLYTES: Strict monitoring of intake, output and overall fluid balance. Avoid nephrotoxic medications to the extent possible. Medications to be dosed according to renal function. Monitor electrolytes and replace as needed ENDOCRINE: Maintain blood glucose between 100-180 at all times. Hypoglycemia protocol in place Lantus subQ b.i.d. Regular insulin sliding scale INFECTIOUS DISEASE: Trend temperature, WBC and procalcitonin level Follow cultures, deescalate antibiotics as soon as possible. Panculture if new onset fever Vancomycin Zosyn Respiratory culture ONCOLOGY/HEMATOLOGY/COAGULATION: Monitor for s/s of bleeding Monitor hemoglobin, coagulation studies as needed SKIN: Pressure ulcer prevention per facility protocol Specialty mattress ORTHO/REHAB: Continue PT/OT Prophylaxis: Continue GI and DVT prophylaxis Code Status: Full Resuscitation Disposition: Home once home O2 is delivered Other: Total patient care time exceeds 35 minutes excluding all procedures. ATTESTATION BY PHYSICIAN I have evaluated the patient chart, medical records, and spoke with appropriate staff. I reviewed the documentation, medical decision making, and treatment plan as noted by the mid-level provider above. I agree with the findings and plan of care. Enrique Ferguson MD,AMISH Carrillo NP Jan 27, 2024 11:35
--- NOTE | 2024-01-27 14:53 | NUR ---
cm note per [facility] rep Dana requested clinical updates including las bm. . sent today. plan for possible acceptance tomorrow. will send morning cbc and cmp in am. updated primary nurse Addendum: 01/27/24 at 1510 by DAVID MAHAN CM disregard above note entered in error
--- NOTE | 2024-01-27 15:00 | NUR ---
[facility] PER [facility], OXYGEN HAS BEEN APPROVED AND WILL DELIVER TO HOME WHEN FAMILY IS AT HOME.
--- NOTE | 2024-01-27 15:10 | NUR ---
cm note spoke to julian with [facility], and states working on getting oxygen delivered. trying to reach family. provided phone #s
--- NOTE | 2024-01-27 16:10 | NUR ---
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 nurse to followup for final dc orders.
--- NOTE | 2024-01-27 16:17 | NUR ---
[facility] PH[facility] # [employer] PROVIDING HOME OXYGEN. [phone]
== END 2024-01-27 18:50 | disposition home or self-care (01) | DRG 189 ==
LOC: EDH 10:49 → OBSVTOIN 14:21 → EDHIP 14:21 → 3CH 01-25 18:20
PROVIDERS: ADMIT Internal Medicine; ATTEND Internal Medicine
DX: J96.21 Acute and chronic respiratory failure with hypoxia (principal); J44.1 Chronic obstructive pulmonary disease with (acute) exacerbation; I50.22 Chronic systolic (congestive) heart failure; I11.0 Hypertensive heart disease with heart failure; J30.9 Allergic rhinitis, unspecified; E11.65 Type 2 diabetes mellitus with hyperglycemia; Z20.822 Contact with and (suspected) exposure to COVID-19; E78.00 Pure hypercholesterolemia, unspecified; Z88.0 Allergy status to penicillin; Z79.899 Other long term (current) drug therapy
CPT/HCPCS: 36415; 36600; 71045; 71270; 80048; 80053; 81001; 82803; 82948; 83880; 84132; 84145; 84484; 85025; 85378; 87040; 87071; 87086; 87186; 87205; 87426; 87804; 87880; 93005; 94640; 94664; 94760; 96374; 99285; G0378; J1650; J1815; J1940; J1956; J2470; J2919; J3480; Q9967; 3370; J3370

== ENCOUNTER 2024-07-12 18:41 | Inpatient (IN) | payer MEDICARE ==
[~2024-07-12] VITALS: Ht 162.6 cm; Wt 89.8 kg
[~2024-07-12 18:41] MED LIST changes: +ALBU18HF7 IH; +AZIT250T9 PO; +DOXY100C5 PO; +FLUT1DIS3 IH; -MELO-106 PO; +PRED20TA3 PO
[2024-07-12 19:30] LABS: BASOPHILS # (AUTO) 0.07 K/uL (0.00-0.20); BASOPHILS % (AUTO) 1.5 % (0.0-5.0); EOSINOPHILS # (AUTO) 0.07 K/uL (0.00-0.70); EOSINOPHILS % (AUTO) 1.5 % (0.0-8.0); HEMATOCRIT 37.6 % (42-54); IMMATURE GRANULOCYTE ABSOLUTE 0.04 K/uL (0-1); LYMPHOCYTES # (AUTO) 0.5 K/uL (1.0-4.8); MEAN CORPUSCULAR HEMOGLOBIN 29.7 pg (27.0-33.0); MEAN CORPUSCULAR HGB CONC 31.6 g/dL (32.0-36.0); MEAN CORPUSCULAR VOLUME 93.8 fL (79-99); MONOCYTES # (AUTO) 0.7 K/uL (0.1-1.0); MONOCYTES % (AUTO) 14.3 % (3.0-13.0); NEUTROPHILS # (AUTO) 3.4 K/uL (1.8-7.7); NEUTROPHILS % (AUTO) 71.8 % (40.0-77.0); PLATELET COUNT (AUTO) 241 K/uL (130-400); RED BLOOD CELL COUNT(AUTO) 4.01 MIL/uL (4.50-6.20); RED CELL DISTRIBUTION WIDTH 13.8 % (11.0-15.5); WHITE BLOOD COUNT (AUTO) 4.7 K/uL (4.8-10.8)
[2024-07-12 19:40] LABS: CREATININE 1.5 mg/dL (0.5-1.3)
[2024-07-12 19:47] LABS: BILIRUBIN,DIRECT 0.3 mg/dL (0.0-0.3); TOTAL PROTEIN, SERUM 6.9 g/dL (6.0-8.3)
[2024-07-12 19:48] LABS: ALBUMIN 2.5 g/dL (3.5-5.0); BILIRUBIN,TOTAL 0.6 mg/dL (0.2-1.0)
[2024-07-12 19:53] LABS: B-TYPE NATRIURETIC PEPTIDE 359 pg/mL (0-100)
--- NOTE | 2024-07-12 20:04 | HMCIMG ---
Exam Type: CT ABDOMEN/PELVIS W/O CONTRAST Clinical Information: diffused abd pain Comparison: None CT Dose Index (CTDI): 10.20 mGy Dose Length Product (DLP): 530.00 total mGy-cm PROTOCOL: Routine noncontrast helical scanning of the abdomen and pelvis was performed at 5mm collimation. Findings: No evidence of nephro or ureterolithiasis is found. No hydronephrosis or ureteral dilatation is seen. The lung bases are clear. The stomach is unremarkable. It shows no wall thickening. No gross ulceration is seen. It is not overly distended. There are no surrounding inflammatory changes. No wall lesions are identified to suggest cancer. The spleen is unremarkable. It is not enlarged. The pancreas shows normal anatomy. It is not fatty replaced. It shows no lesions. The pancreatic duct is not dilated. The gallbladder is unremarkable. It shows no cholelithiasis. The gallbladder wall is normal in thickness. There is no pericholecystic fluid. The is no acute or chronic inflammation noted. The adrenal glands are unremarkable. There is no enlargement. No lesions are noted. The liver is unremarkable. It shows no focal masses. The appendix is unremarkable. It shows no evidence of inflammation. No appendicolith is seen. Dilatation of most of the small bowel with distal transition of caliber size suggests possible early small bowel obstruction. There is diverticulosis. There is no evidence of acute inflammation to suggest diverticulitis. The colon is otherwise unremarkable. The urinary bladder is unremarkable. There is no wall thickening to suggest tumor or inflammation. There are no intraluminal calculi. There are no diverticula. There is no evidence of chronic bladder outlet obstruction. There is no evidence of urinary bladder distention to suggest urinary retention. The other pelvic structures are unremarkable. The bony and vascular structures are unremarkable for the patient's age. IMPRESSION: Possible early small bowel obstruction. Follow-up is advised. This study was performed using dose reduction techniques to include automated exposure control and/or adjustment of the mA and/or kV according to patient size.
[2024-07-12 20:50] LABS: APPEARANCE,URINE CLEAR (CLEAR); BILIRUBIN,URINE NEGATIVE (NEGATIVE); COLOR,URINE YELLOW (YELLOW); GLUCOSE, URINE (UA) NEGATIVE (NEGATIVE); KETONES,URINE NEGATIVE (NEGATIVE); LEUKOCYTE ESTERASE ,URINE NEGATIVE Leu/uL (NEGATIVE); NITRATE,URINE NEGATIVE (NEGATIVE); PH,URINE 6.5 (5.0-8.0); PROTEIN,URINE 30 mg/dL (NEGATIVE); UROBILINOGEN,URINE 0.2 mg/dL (0.2-1.0)
[2024-07-12 20:56] LABS: ADD UA MICROSCOPIC YES
[2024-07-12 21:00] LABS: BACTERIA,URINE RARE /HPF (None Seen); HYALINE CASTS, URINE 0-1 /LPF (0-1 /LPF); MUCUS,URINE RARE LPF (None Seen); SQUAMOUS EPITHELIAL CELL,UR FEW /HPF (0-2)
--- NOTE | 2024-07-12 21:26 | EKG ---
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
--- NOTE | 2024-07-12 21:42 | ERN ---
General Chief Complaint: Abdominal Pain Stated Complaint: ABDOMINAL PAIN Time Seen by MD: 18:46 Time Seen by Midlevel: 18:46 Source: patient History of Present Illness Initial Comments Patient is an 79-year-old male with a past medical history of COPD, type 2 diabetes, hypertension, and hyperlipidemia presenting to the emergency department for evaluation of diffuse abdominal pain that started two days ago. Initially the patient believes he was constipated. He reports taking fiber with little to no relief so he decided to report to the ER for further evaluation. No episodes of vomiting or any other symptoms reported at this time. Allergies: Coded Allergies: No Known Drug Allergies (Unverified Allergy, Unknown, 02/23/24) Penicillins (Verified Allergy, Unknown, 07/12/24) Home Meds Active Scripts Levofloxacin (Levaquin 750Mg Tabs) 750 Mg Tablet, 750 MG PO DAILY, #7 TAB 0 Refills Prov:AMISH IVORY OB/GYN NURSE 01/26/24 Prednisone (Prednisone) 20 Mg Tablet, 40 MG PO DAILY for 10 Days, #10 TAB Prov:AMISH IVORY OB/GYN NURSE 01/26/24 Budesonide (Budesonide) 0.5 Mg/2 Ml Ampul.neb, 1 VIAL NEB BID for 15 Days, #120 ML 0 Refills Prov:JING ALFONSO [facility] 01/05/24 Clopidogrel Bisulfate (Plavix) 75 Mg Tablet, 75 MG PO DAILY, #30 TAB 1 Refill Prov:JING ALFONSO [facility] 01/05/24 Montelukast Sodium (Singulair 10Mg) 10 Mg Tab, 10 MG PO HS, #30 TAB 0 Refills Prov:JING ALFONSO [facility] 01/05/24 Furosemide (Lasix 40Mg Tab) 40 Mg Tablet, 40 MG PO DAILY, #30 TAB 1 Refill Prov:JING ALFONSO [facility] 01/05/24 Azithromycin (Azithromycin) 250 Mg Tablet, 250 MG PO DAILY for 5 Days, #6 TAB Prov:ELIJAH MILLER 06/12/23 Doxycycline Hyclate (Doxycycline Hyclate) 100 Mg Capsule, 100 MG PO Q12H for 4 Days, #8 CAP 0 Refills Prov:SAIDA PAL 03/24/23 Oseltamivir Phosphate (Tamiflu) 75 Mg Cap, 75 MG PO BID for 2 Days, #4 CAP 0 Refills Prov:SAIDA PAL BEAU 03/24/23 Reported Medications Pioglitazone HCl (Pioglitazone HCl) 30 Mg Tablet, 1 TAB PO DAILY for 30 Days, #30 TAB 0 Refills 01/02/24 Losartan/Hydrochlorothiazide (Losartan-Hctz 50-12.5 mg Tab) 50 Mg-12.5 Mg Tablet, 1 TAB PO DAILY for 30 Days, #30 TAB 0 Refills 01/02/24 Ranolazine (Ranolazine ER) 500 Mg Tab.er.12h, 1 TAB PO BID for 30 Days, #60 TAB 0 Refills 01/02/24 Omeprazole (Omeprazole) 40 Mg Capsule.dr, 1 CAP PO DAILY for 30 Days, #30 CAP 0 Refills 01/02/24 Albuterol Sulfate (Ventolin Hfa) 90 Mcg Hfa.aer.ad, 18 GM IH AD, INHALER 03/21/23 Umeclidinium Hammond (Incruse Ellipta) 62.5 Mcg/Actuation Blst.w.dev, 62.5 MCG IH AD 03/21/23 Fluticasone/Salmeterol (Advair 250-50 Diskus) 250 Mcg-50 Mcg/Dose Blst.w.dev, 1 EACH IH AD 03/21/23 Pioglitazone HCl (Pioglitazone HCl) 30 Mg Tablet, 30 MG PO DAILY, TAB 03/21/23 Losartan/Hydrochlorothiazide (Losartan-Hctz 50-12.5 mg Tab) 50 Mg-12.5 Mg Tablet, 1 EACH PO DAILY, TAB 03/21/23 Omeprazole (Omeprazole) 40 Mg Capsule.dr, 40 MG PO DAILYBKFST, CAP 03/21/23 Umeclidinium Hammond (Incruse Ellipta) 62.5 Mcg Blst.w.dev, 62.5 MCG IH DAILY 08/22/20 Past Medical History Past Medical History: COPD, Diabetes-Type II, High Cholesterol, Hypertension, Prostatitis, Vascular Disease Medical History Other: EMPHESYMA Past Surgical History: Other Surgical History Other: PROSTATECTOMY/VASCULAR PROCEDURE. Family History Family History: Negative Social History Social History: Negative ROS Dictation CONSTITUTIONAL: Negative except for HPI HEAD/FACE: Negative except for HPI EENT: Negative except for HPI RESPIRATORY: Negative except for HPI GASTROINTESTINAL/ABDOMINAL: Negative except for HPI GENITOURINARY: Negative except for HPI MUSCULOSKELETAL: Negative except for HPI INTEGUMENTARY: Negative except for HPI NEUROLOGICAL/PSYCH: Negative except for HPI HEMATOLOGIC/LYMPHATIC: Negative except for HPI All Systems Negative, Except as noted above. 13 point review of systems assessed and all negative except for above. Physical Exam Physical Exam Dictation Vital Signs reviewed General Appearance: Alert, oriented x 3, no acute distress, well developed, nourished. Head and Face: non-traumatic. Eyes: PERRL, pink conjunctivas, eyelid no trauma, anterior chamber with arcus senilis. Ears: Pinnas intact and no signs of trauma or erythema ear canals clear and no discharge TM no erythema Nose: No discharge, no bleeding. Oropharynx: Mouth normal, tongue pink, pharynx clear,no erythema, tonsils no exudates, no abscesses noted, mucous membrane moist Neck: Supple, non-tender, no thyromegaly, no masses, no JVD, no bruits Breast:Deferred Chest:No tenderness, no crepitus, no paradoxical movement, no retractions Lungs:Clear, well-ventilated, symmetric, no rales, no wheezing, no rhonchi, no stridor, good breath sounds bilaterally Heart: Regular rate, regular rhythm, no murmur, no gallops Vascular: no peripheral edema, Abdomen: Soft, positive bowel sounds, diffuse distention, no guarding, Diffuse abdominal tenderness, no rebound, no masses no hepatomegaly, no splenomegaly, no Mcconnell's sign, no hernias. Rectal: Deferred Genital: Deferred Neurological: Normal speech, motor function intact, sensory function intact Musculoskeletal: Neck nontender, full range of motion, back nontender, full ran ge of motion, Extremities: nontender, full range of motion Skin: Color pink, dry, no turgor, no rash, no lacerations, no abrasions, no contusions. Lymphatic: Deferred Results Laboratory and Microbiology Lab and Micro Result Laboratory Tests Test 07/12/24 19:24 07/12/24 20:33 White Blood Count 4.7 K/uL (4.8-10.8) L Red Blood Count 4.01 MIL/uL (4.50-6.20) L Hemoglobin 11.9 g/dL (14.0-18.0) L Hematocrit 37.6 % (42-54) L Mean Corpuscular Volume 93.8 fL (79-99) Mean Corpuscular Hemoglobin 29.7 pg (27.0-33.0) Mean Corpuscular Hemoglobin Concent 31.6 g/dL (32.0-36.0) L Red Cell Distribution Width 13.8 % (11.0-15.5) Platelet Count 241 K/uL (130-400) Mean Platelet Volume 9.5 fL (7.5-10.5) Immature Granulocyte % (Auto) 0.9 % (0-1) Neutrophils (%) (Auto) 71.8 % (40.0-77.0) Lymphocytes (%) (Auto) 10.0 % (21.0-51.0) L Monocytes (%) (Auto) 14.3 % (3.0-13.0) H Eosinophils (%) (Auto) 1.5 % (0.0-8.0) Basophils (%) (Auto) 1.5 % (0.0-5.0) Neutrophils # (Auto) 3.4 K/uL (1.8-7.7) Lymphocytes # (Auto) 0.5 K/uL (1.0-4.8) L Monocytes # (Auto) 0.7 K/uL (0.1-1.0) Eosinophils # (Auto) 0.07 K/uL (0.00-0.70) Basophils # (Auto) 0.07 K/uL (0.00-0.20) Absolute Immature Granulocyte (auto 0.04 K/uL (0-1) Nucleated Red Blood Cells 0.0 % (0.0-0.19) White Cell Morphology Comment See comments Sodium Level 137 mmol/L (136-145) Potassium Level 4.0 mmol/L (3.5-5.1) Chloride Level 100 mmol/L (101-111) L Carbon Dioxide Level 32 mmol/L (21-32) Blood Urea Nitrogen 46 mg/dL (7-18) H Creatinine 1.5 mg/dL (0.5-1.3) H Glomerular Filtration Rate Calc 46 mL/min (>90) Random Glucose 99 mg/dL (70-105) Total Calcium 8.8 mg/dL (8.5-10.1) Total Bilirubin 0.6 mg/dL (0.2-1.0) Direct Bilirubin 0.3 mg/dL (0.0-0.3) Aspartate Amino Transf (AST/SGOT) 17 U/L (10-37) Alanine Aminotransferase (ALT/SGPT) 20 U/L (12-78) Alkaline Phosphatase 87 U/L (50-136) Total Creatine Kinase 84 U/L (21-232) # Troponin I High Sensitivity 13 ng/L (4-75) B-Type Natriuretic Peptide 359 pg/mL (0-100) H Total Protein 6.9 g/dL (6.0-8.3) Albumin 2.5 g/dL (3.5-5.0) L Lipase 29 U/L (16-77) Urine Color YELLOW (YELLOW) Urine Appearance CLEAR (CLEAR) Urine pH 6.5 (5.0-8.0) Urine Specific [place] 1.016 (1.001-1.031) Urine Protein 30 mg/dL (NEGATIVE) H Urine Glucose (UA) NEGATIVE mg/dL (NEGATIVE) Urine Ketones NEGATIVE mg/dL (NEGATIVE) Urine Occult Blood +- (TRACE) (NEGATIVE) H Urine Nitrate NEGATIVE (NEGATIVE) Urine Bilirubin NEGATIVE mg/dL (NEGATIVE) Urine Urobilinogen 0.2 mg/dL (0.2-1.0) Urine Leukocyte Esterase NEGATIVE Smith/uL Urine RBC 2-5 /HPF (0-1) H Urine WBC 2-5 /HPF (0-1) H Urine Squamous Epithelial Cells FEW /HPF (0-2) Urine Bacteria RARE /HPF (None Seen) Urine Hyaline Casts 0-1 /LPF (0-1 /LPF) Labs Reviewed?: Yes MDM MDM: Differential diagnosis: ACS, small-bowel obstruction, constipation Rationale: Tests considered and ordered secondary to shared decision making include: Previous outside records reviewed: Old ER visits. Risk of complication and/or morbidity or mortality of patient management: None Medications-Per medication reconciliation Need for hospitalization: Patient does meet criteria for hospitalization. Need for emergency major/minor surgery: No There are no social concerns with this patient. Prescription drug management Prescriptions will include symptomatic care Patient's prior external medical records from other ER visits were reviewed by me as indicated. Prior testing and results from previous visits were reviewed. Prior tests were taken into account with medical decision making and resource utilization, independent historian/historians were used to obtain complete medical history. I independently interpreted the test that were performed, results were reviewed by me and considered findings on radiology if ordered. Medical management and examination interpretation discussions were had by me with other qualified healthcare professionals as indicated for the patient's care. ED Course Orders Procedure Category Date Status Time Cbc With Differential LAB 07/12/24 Complete 18:54 Basic Metabolic Panel LAB 07/12/24 Complete 18:54 B-Type Natriuretic LAB 07/12/24 Complete Peptide 18:54 Creatine Kinase, Total LAB 07/12/24 Complete 18:54 Troponin I High LAB 07/12/24 Complete Sensitivity 18:54 Urinalysis Profile LAB 07/12/24 Complete 18:54 Ct Abdomen/Pelvis W/O CT 07/12/24 Resulted Contrast 18:54 Hepatic Function Panel LAB 07/12/24 Complete 18:54 Lipase LAB 07/12/24 Complete 18:54 12 Lead Ekg Tracing- EKG 07/12/24 Complete Technical 21:17 0.9%Nacl 1000ml (Ns PHA 07/12/24 Complete 1000ml) 21:30 Nothing By Mouth DIET 07/13/24 Transmitted Breakfast Morphine 2mg Syg PHA 07/12/24 Transmitted (Morphine 2mg Syg) 22:00 Ondansetron 4mg Inj PHA 07/12/24 Transmitted (Zofran 4mg Inj) 22:00 Ng Tube Instruction CPOE 07/12/24 Transmitted 21:37 Current Medications Medications (Trade) Dose Ordered Sig/Jessika Route PRN Reason Start Time Stop Time Status Last Admin Dose Admin Sodium Chloride 1,000 ml @ 0 mls/hr ONCE ONCE IV 07/12/24 21:30 07/12/24 21:31 DC Vital Signs Date Time Temp Pulse Resp B/P (MAP) Pulse Ox O2 Delivery O2 Flow Rate FiO2 07/12/24 18:42 98.4 86 18 123/99 97 Room Air 0 [facility] [address] [place] [id number] IMAGING REPORT Signed PATIENT: CHEN PATEL MR#: [id number] : 1945 SEX: M AGE: 79 LOCATION: [facility] ORDER 55 STATUS: REG ER REPORT#: [id number] SERVICE 53 REASON: diffused abd pain ORDERING PHYSICIAN: ELIJAH MILLER PROCEDURE: ABD PEL WO - CT ABDOMEN/PELVIS W/O CONTRAST Exam Type: CT ABDOMEN/PELVIS W/O CONTRAST Clinical Information: diffused abd pain Comparison: None CT Dose Index (CTDI): 10.20 mGy Dose Length Product (DLP): 530.00 total mGy-cm PROTOCOL: Routine noncontrast helical scanning of the abdomen and pelvis was performed at 5mm collimation. Findings: No evidence of nephro or ureterolithiasis is found. No hydronephrosis or ureteral dilatation is seen. The lung bases are clear. The stomach is unremarkable. It shows no wall thickening. No gross ulceration is seen. It is not overly distended. There are no surrounding inflammatory changes. No wall lesions are identified to suggest cancer. The spleen is unremarkable. It is not enlarged. The pancreas shows normal anatomy. It is not fatty replaced. It shows no lesions. The pancreatic duct is not dilated. The gallbladder is unremarkable. It shows no cholelithiasis. The gallbladder wall is normal in thickness. There is no pericholecystic fluid. The is no acute or chronic inflammation noted. The adrenal glands are unremarkable. There is no enlargement. No lesions are noted. The liver is unremarkable. It shows no focal masses. The appendix is unremarkable. It shows no evidence of inflammation. No appendicolith is seen. Dilatation of most of the small bowel with distal transition of caliber size suggests possible early small bowel obstruction. There is diverticulosis. There is no evidence of acute inflammation to suggest diverticulitis. The colon is otherwise unremarkable. The urinary bladder is unremarkable. There is no wall thickening to suggest tumor or inflammation. There are no intraluminal calculi. There are no diverticula. There is no evidence of chronic bladder outlet obstruction. There is no evidence of urinary bladder distention to suggest urinary retention. The other pelvic structures are unremarkable. The bony and vascular structures are unremarkable for the patient's age. IMPRESSION: Possible early small bowel obstruction. Follow-up is advised. This study was performed using dose reduction techniques to include automated exposure control and/or adjustment of the mA and/or kV according to patient size. DICTATED BY: CHIRS BLISS MD DATE: 07/12/241999 ELECTRONICALLY SIGNED BY: CHRIS BLISS MD DATE: 07/12/242003 DX & DISP Disposition: Inpatient Decision to Admit Date: Jul 12, 2024 Decision to Admit Time: 21:41 Departure Impression: Primary Impression: Small bowel obstruction Additional Impressions: Dehydration, VIJAY (acute kidney injury) Condition: Stable Referrals: ANDREA LEON MD (PCP) Time of Disposition: 21:41 I have reviewed the case, and I agree with, Diagnosis and Plan I performed the substantive portion of the visit. I have reviewed and personally made and approve the management plan that is documented in the note by myself or the [place]. I acknowledge for responsibility for the patient's management plan. ELIJAH MILLER Jul 12, 2024 21:42
[2024-07-12] MEDS ORDERED: ondanSETRON 4MG INJ IVP PRN (22:00)
[2024-07-12] MEDS: morPHINE 2 MG SYG IVP ONE (22:19)
[2024-07-12] MEDS: 0.9%NACL 1000ML 1,000 ML IV ONE (22:19)
[2024-07-12] MEDS: ondanSETRON 4MG INJ IVP ONE (22:19)
[2024-07-12 23:55] VITALS: BP 122/56; PULSE 70; RESP 18; TEMP 98.3
[2024-07-13] VITALS (8 sets, daily range): BP systolic 118–135; BP diastolic 56–70; PULSE 81–88; RESP 19–20; TEMP 97.7–98.5; O2SAT 92–95
[2024-07-13] MEDS ORDERED: SACU1TAB PO (00:36)
[2024-07-13] MEDS ORDERED: FURO20TA4 PO (00:36)
[2024-07-13] MEDS ORDERED: ATOR20TA65 PO (00:45)
[2024-07-13] MEDS ORDERED: FLUT1BLS3 PO (00:45)
[2024-07-13] MEDS: DEXTROSE 5 %-0.45 % NACL 1,000 ML IV SCH (00:54)
[2024-07-13 04:08] LABS: BASOPHILS # (AUTO) 0.08 K/uL (0.00-0.20); BASOPHILS % (AUTO) 1.5 % (0.0-5.0); EOSINOPHILS # (AUTO) 0.12 K/uL (0.00-0.70); EOSINOPHILS % (AUTO) 2.3 % (0.0-8.0); HEMATOCRIT 34.2 % (42-54); IMMATURE GRANULOCYTE ABSOLUTE 0.05 K/uL (0-1); LYMPHOCYTES # (AUTO) 0.4 K/uL (1.0-4.8); LYMPHOCYTES % (AUTO) 6.8 % (21.0-51.0); MEAN CORPUSCULAR HEMOGLOBIN 29.7 pg (27.0-33.0); MEAN CORPUSCULAR HGB CONC 30.4 g/dL (32.0-36.0); MEAN CORPUSCULAR VOLUME 97.7 fL (79-99); MONOCYTES # (AUTO) 0.6 K/uL (0.1-1.0); MONOCYTES % (AUTO) 11.8 % (3.0-13.0); NEUTROPHILS % (AUTO) 76.6 % (40.0-77.0); PLATELET COUNT (AUTO) 199 K/uL (130-400); WHITE BLOOD COUNT (AUTO) 5.3 K/uL (4.8-10.8)
[2024-07-13 04:28] LABS: BILIRUBIN,TOTAL 0.6 mg/dL (0.2-1.0); CREATININE 1.2 mg/dL (0.5-1.3); POTASSIUM 3.6 mmol/L (3.5-5.1); TOTAL PROTEIN, SERUM 5.7 g/dL (6.0-8.3)
--- NOTE | 2024-07-13 08:39 | CONS ---
GENERAL SURGERY CONSULTATION NOTE Date/Time Patient Seen: [July 13, 2024 ] Requesting Physician: [ Dr. Montanez] Reason for Consultation: [ ] Partial bowel obstruction History of Present Illness: [ Patient with a three day history of increasing abdominal distention and discomfort. Associated with the current symptoms with some nausea and sporadic emesis. Patient denies any fever or chills. Patient denies any diarrhea. Patient had a symptom like this before however it resolved spontaneously. Patient denies any previous abdominal surgeries. Patient has diabetes, hypertension, COPD. When patient came in the emergency room a CT scan was obtained. CT scan shows dilated small bowel and a decompressed colon. I personally reviewed the CT scan myself. There does not appear to be any transition point or any mass effect causing the bowel obstruction.] Past Medical History: [Diabetes, hypertension, COPD ] Past Surgical History: [ Patient denies] Family History: [ Noncontributory] Social History: [ Patient denies any illicit drug use] Habits: [Never] smoker. [Denies] alcohol consumption. [Denies] illicit drug use Current Medications Medications (Trade) Dose Ordered Sig/Jessika Route Start Time Stop Time Status Last Admin Dose Admin Dextrose/Sodium Chloride 1,000 ml @ 75 mls/hr [id number] IV 07/12/24 22:00 08/11/24 21:59 07/13/24 00:54 75 MLS/HR Review of Systems: Fourteen point review of systems negative except was mentioned in the history of present illness Physical Examination: PHYSICAL EXAM EYES: Sclera white HENT: Oral nasal mucosa pink and moist NECK: Supple, . LUNGS: Unlabored CARDIOVASCULAR: Regular rate and rhythm ABDOMEN: Protuberant abdomen, slightly tympanitic, nontender CENTRAL NERVOUS SYSTEM: Awake, alert, oriented x3 SKIN: No rashes, no swelling. LYMPHATICS: No peripheral lymphadenopathy MUSCULOSKELETAL: Motor and sensory function grossly intact EXTREMITIES: No cyanosis or clubbing Vital Signs (last 8hr) Date Time Temp Pulse Resp B/P (MAP) Pulse Ox O2 Delivery O2 Flow Rate FiO2 07/13/24 08:16 92 Room Air* 0 21 07/13/24 03:57 98.2 85 20 132/56 92 Room Air Laboratory: [ ] Hematology Labs: Test 07/13/24 03:51 07/12/24 19:24 Range/Units White Blood Count 5.3 4.8-10.8 K/uL Red Blood Count 3.50 L 4.50-6.20 MIL/uL Hemoglobin 10.4 L 14.0-18.0 g/dL Hematocrit 34.2 L 42-54 % Mean Corpuscular Volume 97.7 79-99 fL Mean Corpuscular Hemoglobin 29.7 27.0-33.0 pg Mean Corpuscular Hemoglobin Concent 30.4 L 32.0-36.0 g/dL Red Cell Distribution Width 14.0 11.0-15.5 % Platelet Count 199 130-400 K/uL Mean Platelet Volume 10.2 7.5-10.5 fL Immature Granulocyte % (Auto) 1.0 0-1 % Neutrophils (%) (Auto) 76.6 40.0-77.0 % Lymphocytes (%) (Auto) 6.8 L 21.0-51.0 % Monocytes (%) (Auto) 11.8 3.0-13.0 % Eosinophils (%) (Auto) 2.3 0.0-8.0 % Basophils (%) (Auto) 1.5 0.0-5.0 % Neutrophils # (Auto) 4.0 1.8-7.7 K/uL Lymphocytes # (Auto) 0.4 L 1.0-4.8 K/uL Monocytes # (Auto) 0.6 0.1-1.0 K/uL Eosinophils # (Auto) 0.12 0.00-0.70 K/uL Basophils # (Auto) 0.08 0.00-0.20 K/uL Absolute Immature Granulocyte (auto 0.05 0-1 K/uL Nucleated Red Blood Cells 0.0 0.0-0.19 % Red Blood Cell Morphology See comments White Cell Morphology Comment See comments Chemistry Labs: Test 07/13/24 03:51 07/12/24 19:24 Range/Units Sodium Level 137 136-145 mmol/L Potassium Level 3.6 3.5-5.1 mmol/L Chloride Level 104 101-111 mmol/L Carbon Dioxide Level 28 21-32 mmol/L Blood Urea Nitrogen 37 H 7-18 mg/dL Creatinine 1.2 0.5-1.3 mg/dL Glomerular Filtration Rate Calc 61 >90 mL/min Random Glucose 140 H 70-105 mg/dL Total Calcium 8.2 L 8.5-10.1 mg/dL Total Bilirubin 0.6 0.2-1.0 mg/dL Aspartate Amino Transf (AST/SGOT) 18 10-37 U/L Alanine Aminotransferase (ALT/SGPT) 12 # 12-78 U/L Alkaline Phosphatase 68 50-136 U/L Total Protein 5.7 L 6.0-8.3 g/dL Albumin 2.0 L 3.5-5.0 g/dL Direct Bilirubin 0.3 0.0-0.3 mg/dL Total Creatine Kinase 84 # 21-232 U/L Troponin I High Sensitivity 13 4-75 ng/L B-Type Natriuretic Peptide 359 H 0-100 pg/mL Lipase 29 16-77 U/L Diagnostics / Radiology: [Copy/Paste Echos/Imaging Report here] Assessment: [Partial bowel obstruction. ] Plan: [Plan NG tube, NPO, IV fluids, we will continue to monitor the patient over the next 24-48 hours. If patient does not resolve in 24-48 hours patient may need an exploration. This was discussed with the patient and his family and they indicate they understand. ] PING WARNER MD Jul 13, 2024 08:39
--- NOTE | 2024-07-13 08:54 | HMCIMG ---
Exam Type: ABD 1VW Clinical Information: S/P NG TUBE INSERTION Comparison: None Findings and impression: Bowel gas pattern appears obstructed with dilatation of multiple small bowel loops. Nasogastric tube is noted, with tip barely within the stomach. Consider advancing.
[2024-07-13] MEDS: LACTATED RINGERS 1000ML 1,000 ML IV SCH (09:18)
[2024-07-13] MEDS ORDERED: PHARMACY COMMUNICATION MISC SCH (10:00)
--- NOTE | 2024-07-13 13:55 | NUR ---
DCP: HOME Pt currently lives with sps in their home. Pt does not have insecurities with food, fdc, and/or utilities. Pt does not currently have any DME. Pt states that he used to have a walker however it broke and was trying to get a new one. Pt does not have home health or provider services. Pt states he is able to complete ADLs independently however is available if needed. PCP is Dr. Lagos and uses [facility] for any RX needs. At [place] pt will go back home and family will assist with transportation. Addendum: 07/13/24 at 1358 by SANKET ZAPATA SS Amended: Links added.
[2024-07-14] VITALS (9 sets, daily range): BP systolic 131–140; BP diastolic 56–84; PULSE 70–89; RESP 18–21; TEMP 97.8–99; O2SAT 93–94
[2024-07-14 04:43] LABS: BASOPHILS # (AUTO) 0.03 K/uL (0.00-0.20); BASOPHILS % (AUTO) 0.5 % (0.0-5.0); EOSINOPHILS # (AUTO) 0.06 K/uL (0.00-0.70); HEMATOCRIT 33.9 % (42-54); IMMATURE GRANULOCYTE ABSOLUTE 0.09 K/uL (0-1); LYMPHOCYTES # (AUTO) 0.6 K/uL (1.0-4.8); LYMPHOCYTES % (AUTO) 9.7 % (21.0-51.0); MEAN CORPUSCULAR HEMOGLOBIN 29.7 pg (27.0-33.0); MEAN CORPUSCULAR VOLUME 95.8 fL (79-99); MONOCYTES # (AUTO) 1.1 K/uL (0.1-1.0); MONOCYTES % (AUTO) 18.7 % (3.0-13.0); NEUTROPHILS % (AUTO) 68.5 % (40.0-77.0); PLATELET COUNT (AUTO) 242 K/uL (130-400); RED BLOOD CELL COUNT(AUTO) 3.54 MIL/uL (4.50-6.20); RED CELL DISTRIBUTION WIDTH 13.9 % (11.0-15.5); WHITE BLOOD COUNT (AUTO) 5.8 K/uL (4.8-10.8)
[2024-07-14 05:06] LABS: BILIRUBIN,TOTAL 0.7 mg/dL (0.2-1.0); CREATININE 0.9 mg/dL (0.5-1.3); MAGNESIUM 2.8 mg/dL (1.80-2.40); TOTAL PROTEIN, SERUM 5.9 g/dL (6.0-8.3)
--- NOTE | 2024-07-14 11:40 | NUR ---
NGT CLAMPED. ENCOURAGED PT TO AMBULATE AT THIS TIME. SON AT BEDSIDE.
--- NOTE | 2024-07-14 11:50 | NUR ---
NGT CAME OUT WHILE PATIENT IN RESTROOM. INFORMED DR WARNER IF WANTING IT RE-INSERTED. PT IS AMBULATING AND NO OUTPUT FROM NGT ON MY SHIFT. JUST HAD A LARGE BM
--- NOTE | 2024-07-14 12:00 | NUR ---
SPOKE TO CLEMENTINA, PATIENT'S NURSE, WHO STATED PATIENT HAS BEEN UP WALKING IN THE HALLS. NO SKILLED PT NEED AT THIS TIME. Addendum: 07/14/24 at 1237 by YOSHI KAPOOR PT Amended: Links added.
[2024-07-14] MEDS: morPHINE 4 MG SYG IM PRN (13:12)
--- NOTE | 2024-07-14 13:36 | PN ---
GENERAL SURGERY PROGRESS NOTE Date/Time Patient Seen: [ July 14, 2024] Problem List: [ Partial bowel obstruction] Interval History: [Patient indicates that he had a total of three bowel movements two small and one slightly larger since yesterday. Patient does also having some flatus. He still has some abdominal pain however has decreased since yesterday. Patient also indicates his urine has cleared up. ] Current Medications Medications (Trade) Dose Ordered Sig/Jessika Route Start Time Stop Time Status Last Admin Dose Admin Dextrose/Sodium Chloride 1,000 ml @ 75 mls/hr [id number] IV 07/12/24 22:00 07/13/24 08:42 DC 07/13/24 00:54 75 MLS/HR Lactated Ringer's 1,000 ml @ 120 mls/hr [id number] IV 07/13/24 09:00 08/12/24 08:59 07/14/24 09:10 120 MLS/HR Pharmacy Profile Note (Pharmacy Communication) 1 each AD MISC 07/13/24 10:00 07/13/24 09:43 DC Physical Examination: Awake, alert, oriented x3 Unlabored Regular rate and rhythm Abdomen still protuberant but is softer compared to yesterday. Vital Signs (last 8hr) Date Time Temp Pulse Resp B/P (MAP) Pulse Ox O2 Delivery O2 Flow Rate FiO2 07/14/24 12:00 97.9 70 20 140/69 93 Room Air 07/14/24 08:21 94 Room Air* 0 21 07/14/24 08:00 97.9 74 19 135/84 94 Room Air Laboratory: [ ] Hematology Labs: Test 07/14/24 04:17 07/13/24 03:51 07/12/24 19:24 Range/Units White Blood Count 5.8 4.8-10.8 K/uL Red Blood Count 3.54 L 4.50-6.20 MIL/uL Hemoglobin 10.5 L 14.0-18.0 g/dL Hematocrit 33.9 L 42-54 % Mean Corpuscular Volume 95.8 79-99 fL Mean Corpuscular Hemoglobin 29.7 27.0-33.0 pg Mean Corpuscular Hemoglobin Concent 31.0 L 32.0-36.0 g/dL Red Cell Distribution Width 13.9 11.0-15.5 % Platelet Count 242 130-400 K/uL Mean Platelet Volume 9.4 7.5-10.5 fL Immature Granulocyte % (Auto) 1.6 H 0-1 % Neutrophils (%) (Auto) 68.5 40.0-77.0 % Lymphocytes (%) (Auto) 9.7 L 21.0-51.0 % Monocytes (%) (Auto) 18.7 H 3.0-13.0 % Eosinophils (%) (Auto) 1.0 0.0-8.0 % Basophils (%) (Auto) 0.5 0.0-5.0 % Neutrophils # (Auto) 4.0 1.8-7.7 K/uL Lymphocytes # (Auto) 0.6 L 1.0-4.8 K/uL Monocytes # (Auto) 1.1 H 0.1-1.0 K/uL Eosinophils # (Auto) 0.06 0.00-0.70 K/uL Basophils # (Auto) 0.03 0.00-0.20 K/uL Absolute Immature Granulocyte (auto 0.09 0-1 K/uL Nucleated Red Blood Cells 0.0 0.0-0.19 % Red Blood Cell Morphology See comments White Cell Morphology Comment See comments Chemistry Labs: Test 07/14/24 04:17 07/12/24 19:24 Range/Units Sodium Level 141 136-145 mmol/L Potassium Level 4.0 3.5-5.1 mmol/L Chloride Level 105 101-111 mmol/L Carbon Dioxide Level 31 21-32 mmol/L Blood Urea Nitrogen 26 H 7-18 mg/dL Creatinine 0.9 0.5-1.3 mg/dL Glomerular Filtration Rate Calc 86 >90 mL/min Random Glucose 97 70-105 mg/dL Total Calcium 8.5 8.5-10.1 mg/dL Magnesium Level 2.80 H 1.80-2.40 mg/dL Total Bilirubin 0.7 0.2-1.0 mg/dL Aspartate Amino Transf (AST/SGOT) 19 10-37 U/L Alanine Aminotransferase (ALT/SGPT) 20 12-78 U/L Alkaline Phosphatase 66 50-136 U/L Total Protein 5.9 L 6.0-8.3 g/dL Albumin 2.0 L 3.5-5.0 g/dL Direct Bilirubin 0.3 0.0-0.3 mg/dL Total Creatine Kinase 84 # 21-232 U/L Troponin I High Sensitivity 13 4-75 ng/L B-Type Natriuretic Peptide 359 H 0-100 pg/mL Lipase 29 16-77 U/L Diagnostics / Radiology: [Copy/Paste Echos/Imaging Report here] Impression and Plan: [Partial bowel obstruction appears to slowly be resolving. We will try the patient on NG tube clamp trial with some sips of clears. If the patient continues to have bowel function then may be able to disease NG-tube however for now I think we will leave the NG tube in in case patient rebound. Ambulate. Pulmonary toilet. ] PING WARNER MD Jul 14, 2024 13:36
--- NOTE | 2024-07-14 14:00 | NUR ---
pt and family requesting to remove ngt at this time. instructed as per dr sauceda's notes to clamp and leave in just in case it is needed. family and pt requesting to remove ngt and if it is needed can re-insert another one
--- NOTE | 2024-07-14 20:09 | HP ---
HISTORY OF PRESENT ILLNESS: The patient of Dr. Lagos, came to the Emergency Room complaining of abdominal distention, associated with diffuse abdominal pain, constipation, but no nausea or vomiting. ALLERGIES: PENICILLIN. MEDICATIONS: Include Levaquin, prednisone, clopidogrel, furosemide, Zithromax, doxycycline, pioglitazone, losartan, albuterol, fluticasone, Ellipta. PAST MEDICAL HISTORY: Type 2 diabetes, hypertension, dyslipidemia, COPD, prostatitis, emphysema. REVIEW OF SYSTEMS: There has been no fever, chills, visual loss of consciousness. No diplopia, dysarthria, dysphonia. No chest pain, palpitations, dizziness. No nausea, vomiting, diarrhea. No dysuria, urgency, or frequency. No rashes, petechiae, or ecchymoses. No hallucinations or delusions. No suicidal ideation. The patient is complaining of abdominal distention, abdominal pain, and constipation. PHYSICAL EXAMINATION: GENERAL: He is currently awake, alert, and oriented in person, time, and place. Not in distress. VITAL SIGNS: Blood pressure 118/57, pulse 88, respiratory rate 19. HEENT: Normocephalic, atraumatic. PERRLA. [place] and moist oral mucosa. NG tube with low intermittent suctioning in place. LUNGS: Clear to auscultation bilaterally. HEART: S1, S2 are distant. ABDOMEN: Prominent, tense. Mild diffuse tenderness. No rebound. Bowel sounds are minimal. EXTREMITIES: No clubbing, cyanosis, or edema. LABORATORY AND DIAGNOSTIC DATA: WBC count today is 5.3, hemoglobin 10.4, platelets are 199. Sodium 137, potassium 3.6, BUN 37, creatinine 1.2. It was 46/1.5 yesterday. Total calcium 8.2, albumin 2. CT scan of the abdomen and pelvis was reported with possible early small bowel obstruction. ASSESSMENT AND PLAN: * Diffuse abdominal pain associated with abdominal distention, possible small bowel obstruction. The patient will be kept n.p.o. Continue with NG tube for low intermittent pressure suctioning. Surgical consultation requested. Continue IV fluids. * Continue treatment for other comorbidities. Follow up in a.m. with results of tests. TID: [id number] RECEIPT: [id number]
--- NOTE | 2024-07-14 23:51 | PN ---
SUBJECTIVE: The patient continued with NG tube on intermittent low pressure suctioning, IV antibiotics, IV fluids, n.p.o. He has had a minimal bowel movement, complaining of persistent abdominal distention and abdominal pain minimally improved. OBJECTIVE: GENERAL: Currently awake, alert, and oriented in person, time and place, not in distress. VITAL SIGNS: Blood pressure 135/84, pulse 74, respiratory rate 19. HEENT: Normocephalic, atraumatic. LUNGS: Clear to auscultation. HEART: S1, S2 are distant. ABDOMEN: Soft and nontender. LABORATORY DATA: WBC count 5.8, hemoglobin 10.5, platelets 242. Sodium 141, potassium 4, BUN 26, creatinine 0.9. Total bilirubin 0.7, albumin 2. ASSESSMENT AND PLAN: * Abdominal pain, abdominal distention. Continue with NG tube with intermittent low pressure suctioning. Continue surgical recommendations. * Continue n.p.o. and IV fluids. * Leukocytosis, possible diverticulitis. Continue with IV antibiotics. * Dehydration. Continue with IV fluids. Continue treatment of other comorbidities. Follow up in a.m. with labs. The patient is being followed by Dr. Lagos. TID: [id number] RECEIPT: [id number]
[2024-07-15 03:54] VITALS: BP 142/68; PULSE 85; RESP 16; TEMP 98.6
[2024-07-15 04:39] LABS: BASOPHILS # (AUTO) 0.02 K/uL (0.00-0.20); BASOPHILS % (AUTO) 0.5 % (0.0-5.0); EOSINOPHILS # (AUTO) 0.07 K/uL (0.00-0.70); EOSINOPHILS % (AUTO) 1.6 % (0.0-8.0); IMMATURE GRANULOCYTE ABSOLUTE 0.06 K/uL (0-1); LYMPHOCYTES # (AUTO) 0.6 K/uL (1.0-4.8); LYMPHOCYTES % (AUTO) 14.3 % (21.0-51.0); MEAN CORPUSCULAR HEMOGLOBIN 29.5 pg (27.0-33.0); MEAN CORPUSCULAR VOLUME 98.5 fL (79-99); MONOCYTES # (AUTO) 0.8 K/uL (0.1-1.0); MONOCYTES % (AUTO) 17.7 % (3.0-13.0); NEUTROPHILS # (AUTO) 2.8 K/uL (1.8-7.7); NEUTROPHILS % (AUTO) 64.5 % (40.0-77.0); PLATELET COUNT (AUTO) 198 K/uL (130-400); RED BLOOD CELL COUNT(AUTO) 3.25 MIL/uL (4.50-6.20); RED CELL DISTRIBUTION WIDTH 13.7 % (11.0-15.5); WHITE BLOOD COUNT (AUTO) 4.4 K/uL (4.8-10.8)
[2024-07-15 05:05] LABS: ALBUMIN 1.9 g/dL (3.5-5.0); BILIRUBIN,TOTAL 0.8 mg/dL (0.2-1.0); CREATININE 0.8 mg/dL (0.5-1.3); TOTAL PROTEIN, SERUM 5.3 g/dL (6.0-8.3)
[2024-07-15 08:00] VITALS: BP 128/46; PULSE 79; RESP 20; TEMP 97.5; O2SAT 91
[2024-07-15] MEDS ORDERED: PoTASSium chloRIDE 20MEQ/100ML 100 ML IV PRN (11:30)
--- NOTE | 2024-07-15 11:49 | PN ---
GENERAL SURGERY PROGRESS NOTE Date/Time Patient Seen: [July 15, 2024 ] Problem List: [ Partial bowel obstruction] Interval History: [Patient had three bowel movements yesterday into today as well as having flatus. Patient's NG tube was removed. Patient indicates pain is improved.. ] Current Medications Medications (Trade) Dose Ordered Sig/Jessika Route Start Time Stop Time Status Last Admin Dose Admin Atorvastatin Calcium (LIPItor 20MG) 20 mg HS PO 07/16/24 21:00 08/15/24 20:59 Clopidogrel Bisulfate (plaVIX 75MG) 75 mg DAILY PO 07/16/24 09:00 08/15/24 08:59 Dextrose/Sodium Chloride 1,000 ml @ 75 mls/hr [id number] IV 07/12/24 22:00 07/13/24 08:42 DC 07/13/24 00:54 75 MLS/HR Furosemide (LASix 20MG TAB) 20 mg DAILY PO 07/16/24 09:00 08/15/24 08:59 Lactated Ringer's 1,000 ml @ 120 mls/hr Q8H20M IV 07/13/24 09:00 08/12/24 08:59 07/15/24 11:14 120 MLS/HR Montelukast Sodium (SinguLAIR) 10 mg HS PO 07/15/24 21:00 08/14/24 20:59 Pantoprazole Sodium (PROTonix 40MG TAB) 40 mg DAILY PO 07/16/24 09:00 08/15/24 08:59 Pharmacy Profile Note (Pharmacy Communication) 1 each AD MISC 07/13/24 10:00 07/13/24 09:43 DC Pioglitazone HCl (Actos 30mg) 30 mg DAILY PO 07/16/24 09:00 08/15/24 08:59 Ranolazine (Ranexa) 500 mg BID PO 07/15/24 21:00 08/14/24 20:59 Physical Examination: Awake, alert, oriented x3 Unlabored Regular rate and rhythm Abdomen still protuberant but significantly softer compared to yesterday. Vital Signs (last 8hr) Date Time Temp Pulse Resp B/P (MAP) Pulse Ox O2 Delivery O2 Flow Rate FiO2 07/15/24 08:00 97.5 79 20 128/46 91 Room Air 07/15/24 03:54 98.6 85 16 142/68 94 Room Air Laboratory: [ ] Hematology Labs: Test 07/15/24 04:16 Range/Units White Blood Count 4.4 L 4.8-10.8 K/uL Red Blood Count 3.25 L 4.50-6.20 MIL/uL Hemoglobin 9.6 L 14.0-18.0 g/dL Hematocrit 32.0 L 42-54 % Mean Corpuscular Volume 98.5 79-99 fL Mean Corpuscular Hemoglobin 29.5 27.0-33.0 pg Mean Corpuscular Hemoglobin Concent 30.0 L 32.0-36.0 g/dL Red Cell Distribution Width 13.7 11.0-15.5 % Platelet Count 198 130-400 K/uL Mean Platelet Volume 9.0 7.5-10.5 fL Immature Granulocyte % (Auto) 1.4 H 0-1 % Neutrophils (%) (Auto) 64.5 40.0-77.0 % Lymphocytes (%) (Auto) 14.3 L 21.0-51.0 % Monocytes (%) (Auto) 17.7 H 3.0-13.0 % Eosinophils (%) (Auto) 1.6 0.0-8.0 % Basophils (%) (Auto) 0.5 0.0-5.0 % Neutrophils # (Auto) 2.8 1.8-7.7 K/uL Lymphocytes # (Auto) 0.6 L 1.0-4.8 K/uL Monocytes # (Auto) 0.8 0.1-1.0 K/uL Eosinophils # (Auto) 0.07 0.00-0.70 K/uL Basophils # (Auto) 0.02 0.00-0.20 K/uL Absolute Immature Granulocyte (auto 0.06 0-1 K/uL Nucleated Red Blood Cells 0.0 0.0-0.19 % Chemistry Labs: Test 07/15/24 11:07 07/15/24 04:16 07/14/24 04:17 Range/Units Whole Blood Glucose 90 70-110 MG/DL Sodium Level 142 136-145 mmol/L Potassium Level 4.0 3.5-5.1 mmol/L Chloride Level 107 101-111 mmol/L Carbon Dioxide Level 29 21-32 mmol/L Blood Urea Nitrogen 26 H 7-18 mg/dL Creatinine 0.8 0.5-1.3 mg/dL Glomerular Filtration Rate Calc 89 >90 mL/min Random Glucose 91 70-105 mg/dL Total Calcium 8.4 L 8.5-10.1 mg/dL Total Bilirubin 0.8 0.2-1.0 mg/dL Aspartate Amino Transf (AST/SGOT) 11 10-37 U/L Alanine Aminotransferase (ALT/SGPT) 15 # 12-78 U/L Alkaline Phosphatase 58 50-136 U/L Total Protein 5.3 L 6.0-8.3 g/dL Albumin 1.9 L 3.5-5.0 g/dL Magnesium Level 2.80 H 1.80-2.40 mg/dL Diagnostics / Radiology: [Copy/Paste Echos/Imaging Report here] Impression and Plan: [Partial bowel obstruction appears to be slowly resolving. We will give the patient a bowel regimen and also a CT with oral contrast has been ordered. Ambulate. Pulmonary toilet. Hep-Lock IV fluids.. ] PING WARNER MD Jul 15, 2024 11:49
[2024-07-15 12:00] VITALS: BP 141/65; PULSE 84; RESP 19; TEMP 98.2
[2024-07-15] MEDS ORDERED: DIATR MEGLU/DIATRIZOATE SODIUM 30 ML BOTTLE ONE (12:45)
[2024-07-15] MEDS: LACTULOSE 20 GM/30 ML UDCUP PO ONE (12:58)
[2024-07-15] MEDS: MAGNESIUM HYDROXIDE 30 ML/UDCUP PO ONE (12:58)
--- NOTE | 2024-07-15 15:46 | HMCIMG ---
Exam Type: CT ABDOMEN/PELVIS W/O CONTRAST Clinical Information: DISTENDED Comparison: None CT Dose Index (CTDI): 10.20 mGy Dose Length Product (DLP): 530.00 total mGy-cm PROTOCOL: Routine noncontrast helical scanning of the abdomen and pelvis was performed at 5mm collimation. Findings: No evidence of nephro or ureterolithiasis is found. No hydronephrosis or ureteral dilatation is seen. The lung bases are clear. The stomach is unremarkable. It shows no wall thickening. No gross ulceration is seen. It is not overly distended. There are no surrounding inflammatory changes. No wall lesions are identified to suggest cancer. The spleen is unremarkable. It is not enlarged. The pancreas shows normal anatomy. It is not fatty replaced. It shows no lesions. The pancreatic duct is not dilated. The gallbladder is unremarkable. It shows no cholelithiasis. The gallbladder wall is normal in thickness. There is no pericholecystic fluid. The is no acute or chronic inflammation noted. The adrenal glands are unremarkable. There is no enlargement. No lesions are noted. The liver is unremarkable. It shows no focal masses. The appendix is unremarkable. It shows no evidence of inflammation. No appendicolith is seen. Persistent small bowel obstructive pattern with distal small bowel caliber transition. Trace ascites. The colon is unremarkable. The urinary bladder is unremarkable. There is no wall thickening to suggest tumor or inflammation. There are no intraluminal calculi. There are no diverticula. There is no evidence of chronic bladder outlet obstruction. There is no evidence of urinary bladder distention to suggest urinary retention. The other pelvic structures are unremarkable. The bony and vascular structures are unremarkable for the patient's age. IMPRESSION: Persistent small bowel obstructive pattern. This study was performed using dose reduction techniques to include automated exposure control and/or adjustment of the mA and/or kV according to patient size.
[2024-07-15 16:00] VITALS: BP 146/60; PULSE 69; RESP 20; TEMP 97.9
--- NOTE | 2024-07-15 16:39 | PN ---
GENERAL SURGERY PROGRESS NOTE Date/Time Patient Seen: [July 15, 2024 at 4:30 p.m. ] Problem List: [ Partial bowel obstruction] Interval History: [I personally reviewed patient's repeat CT scan. Even though there is contrast heading into the colon there is some change in caliber of the small bowel suggestive of a partial obstruction. Patient also has some ascites in the low pelvis. Pulling this to together I am concerned about a persistent adhesive band causing a partial obstruction. ] Current Medications Medications (Trade) Dose Ordered Sig/Jessika Route Start Time Stop Time Status Last Admin Dose Admin Atorvastatin Calcium (LIPItor 20MG) 20 mg HS PO 07/16/24 21:00 08/15/24 20:59 Clopidogrel Bisulfate (plaVIX 75MG) 75 mg DAILY PO 07/16/24 09:00 08/15/24 08:59 Dextrose/Sodium Chloride 1,000 ml @ 75 mls/hr [id number] IV 07/12/24 22:00 07/13/24 08:42 DC 07/13/24 00:54 75 MLS/HR Furosemide (LASix 20MG TAB) 20 mg DAILY PO 07/16/24 09:00 08/15/24 08:59 Lactated Ringer's 1,000 ml @ 120 mls/hr Q8H20M IV 07/13/24 09:00 07/15/24 11:49 DC 07/15/24 11:14 120 MLS/HR Montelukast Sodium (SinguLAIR) 10 mg HS PO 07/15/24 21:00 08/14/24 20:59 Pantoprazole Sodium (PROTonix 40MG TAB) 40 mg DAILY PO 07/16/24 09:00 08/15/24 08:59 Pharmacy Profile Note (Pharmacy Communication) 1 each AD MISC 07/13/24 10:00 07/13/24 09:43 DC Pioglitazone HCl (Actos 30mg) 30 mg DAILY PO 07/16/24 09:00 08/15/24 08:59 Ranolazine (Ranexa) 500 mg BID PO 07/15/24 21:00 08/14/24 20:59 Physical Examination: Awake, alert, oriented x3 Unlabored Regular rate and rhythm Abdomen protuberant but significantly softer than yesterday Vital Signs (last 8hr) Date Time Temp Pulse Resp B/P (MAP) Pulse Ox O2 Delivery O2 Flow Rate FiO2 07/15/24 12:00 98.2 84 19 141/65 94 Room Air Laboratory: [ ] Hematology Labs: Test 07/15/24 04:16 Range/Units White Blood Count 4.4 L 4.8-10.8 K/uL Red Blood Count 3.25 L 4.50-6.20 MIL/uL Hemoglobin 9.6 L 14.0-18.0 g/dL Hematocrit 32.0 L 42-54 % Mean Corpuscular Volume 98.5 79-99 fL Mean Corpuscular Hemoglobin 29.5 27.0-33.0 pg Mean Corpuscular Hemoglobin Concent 30.0 L 32.0-36.0 g/dL Red Cell Distribution Width 13.7 11.0-15.5 % Platelet Count 198 130-400 K/uL Mean Platelet Volume 9.0 7.5-10.5 fL Immature Granulocyte % (Auto) 1.4 H 0-1 % Neutrophils (%) (Auto) 64.5 40.0-77.0 % Lymphocytes (%) (Auto) 14.3 L 21.0-51.0 % Monocytes (%) (Auto) 17.7 H 3.0-13.0 % Eosinophils (%) (Auto) 1.6 0.0-8.0 % Basophils (%) (Auto) 0.5 0.0-5.0 % Neutrophils # (Auto) 2.8 1.8-7.7 K/uL Lymphocytes # (Auto) 0.6 L 1.0-4.8 K/uL Monocytes # (Auto) 0.8 0.1-1.0 K/uL Eosinophils # (Auto) 0.07 0.00-0.70 K/uL Basophils # (Auto) 0.02 0.00-0.20 K/uL Absolute Immature Granulocyte (auto 0.06 0-1 K/uL Nucleated Red Blood Cells 0.0 0.0-0.19 % Chemistry Labs: Test 07/15/24 11:07 07/15/24 04:16 07/14/24 04:17 Range/Units Whole Blood Glucose 90 70-110 MG/DL Sodium Level 142 136-145 mmol/L Potassium Level 4.0 3.5-5.1 mmol/L Chloride Level 107 101-111 mmol/L Carbon Dioxide Level 29 21-32 mmol/L Blood Urea Nitrogen 26 H 7-18 mg/dL Creatinine 0.8 0.5-1.3 mg/dL Glomerular Filtration Rate Calc 89 >90 mL/min Random Glucose 91 70-105 mg/dL Total Calcium 8.4 L 8.5-10.1 mg/dL Total Bilirubin 0.8 0.2-1.0 mg/dL Aspartate Amino Transf (AST/SGOT) 11 10-37 U/L Alanine Aminotransferase (ALT/SGPT) 15 # 12-78 U/L Alkaline Phosphatase 58 50-136 U/L Total Protein 5.3 L 6.0-8.3 g/dL Albumin 1.9 L 3.5-5.0 g/dL Magnesium Level 2.80 H 1.80-2.40 mg/dL Diagnostics / Radiology: [Copy/Paste Echos/Imaging Report here] Impression and Plan: [Based on CT scan findings convinced that patient probably needs an exploration and just a lysis of adhesions. Plan on taking the patient to the OR on . Risks associated with the procedure not limited to infection, bleeding, injury to surrounding structures has been explained to patient and he indicates he understands.. ] PING WARNER MD Jul 15, 2024 16:39
[2024-07-15 19:00] VITALS: BP 163/71; PULSE 82; RESP 22; TEMP 97.7
[2024-07-15 20:00] VITALS: O2SAT 96
[2024-07-15] MEDS: RANOLAZINE 500 MG TAB.SR.12H PO SCH (21:03)
[2024-07-15] MEDS: monteLUKAST sodIUM 10 MG TAB PO SCH (21:04)
--- NOTE | 2024-07-15 22:29 | PN ---
PROGRESS NOTE PROGRESS NOTE DATE OF PROGRESS NOTE: 07/15/24 SUBJECTIVE: The patient off NG tube IV antibiotics, IV fluids, n.p.o. He has had a minimal bowel movement, complaining of persistent abdominal distention and abdominal pain minimally improved. VITAL SIGNS Vital Signs Date Time Temp Pulse Resp B/P (MAP) Pulse Ox O2 Delivery O2 Flow Rate FiO2 07/15/24 19:00 97.7 82 22 163/71 96 Room Air 07/15/24 08:00 0 21 PHYSICAL EXAM: OBJECTIVE: GENERAL: Currently awake, alert, and oriented in person, time and place, not in distress. HEENT: Normocephalic, atraumatic. LUNGS: Clear to auscultation. HEART: S1, S2 are distant. ABDOMEN: Soft and nontender. LABORATORY: Laboratory Result(s) Test 07/15/24 04:16 07/15/24 11:07 White Blood Count 4.4 K/uL (4.8-10.8) Red Blood Count 3.25 MIL/uL (4.50-6.20) Hemoglobin 9.6 g/dL (14.0-18.0) Hematocrit 32.0 % (42-54) Mean Corpuscular Volume 98.5 fL (79-99) Mean Corpuscular Hemoglobin 29.5 pg (27.0-33.0) Mean Corpuscular Hemoglobin Concent 30.0 g/dL (32.0-36.0) Red Cell Distribution Width 13.7 % (11.0-15.5) Platelet Count 198 K/uL (130-400) Mean Platelet Volume 9.0 fL (7.5-10.5) Immature Granulocyte % (Auto) 1.4 % (0-1) Neutrophils (%) (Auto) 64.5 % (40.0-77.0) Lymphocytes (%) (Auto) 14.3 % (21.0-51.0) Monocytes (%) (Auto) 17.7 % (3.0-13.0) Eosinophils (%) (Auto) 1.6 % (0.0-8.0) Basophils (%) (Auto) 0.5 % (0.0-5.0) Neutrophils # (Auto) 2.8 K/uL (1.8-7.7) Lymphocytes # (Auto) 0.6 K/uL (1.0-4.8) Monocytes # (Auto) 0.8 K/uL (0.1-1.0) Eosinophils # (Auto) 0.07 K/uL (0.00-0.70) Basophils # (Auto) 0.02 K/uL (0.00-0.20) Absolute Immature Granulocyte (auto 0.06 K/uL (0-1) Nucleated Red Blood Cells 0.0 % (0.0-0.19) Sodium Level 142 mmol/L (136-145) Potassium Level 4.0 mmol/L (3.5-5.1) Chloride Level 107 mmol/L (101-111) Carbon Dioxide Level 29 mmol/L (21-32) Blood Urea Nitrogen 26 mg/dL (7-18) Creatinine 0.8 mg/dL (0.5-1.3) Glomerular Filtration Rate Calc 89 mL/min (>90) Random Glucose 91 mg/dL (70-105) Total Calcium 8.4 mg/dL (8.5-10.1) Total Bilirubin 0.8 mg/dL (0.2-1.0) Aspartate Amino Transf (AST/SGOT) 11 U/L (10-37) Alanine Aminotransferase (ALT/SGPT) 15 U/L (12-78) Alkaline Phosphatase 58 U/L (50-136) Total Protein 5.3 g/dL (6.0-8.3) Albumin 1.9 g/dL (3.5-5.0) Whole Blood Glucose 90 MG/DL (70-110) INPATIENT MEDS: Current Medications Medications Dose Ordered Sig/Jessika Start Time Stop Time Status Last Admin Ondansetron HCl 4 mg Q6H PRN 07/12/24 22:00 08/11/24 21:59 Morphine Sulfate 4 mg Q6H PRN 07/12/24 22:00 07/19/24 21:59 07/14/24 13:12 Atorvastatin Calcium 20 mg HS 07/16/24 21:00 08/15/24 20:59 Clopidogrel Bisulfate 75 mg DAILY 07/16/24 09:00 08/15/24 08:59 Furosemide 20 mg DAILY 07/16/24 09:00 08/15/24 08:59 Montelukast Sodium 10 mg HS 07/15/24 21:00 08/14/24 20:59 07/15/24 21:04 Pioglitazone HCl 30 mg DAILY 07/16/24 09:00 08/15/24 08:59 Ranolazine 500 mg BID 07/15/24 21:00 08/14/24 20:59 07/15/24 21:03 Pantoprazole Sodium 40 mg DAILY 07/16/24 09:00 08/15/24 08:59 Potassium Chloride 100 ml @ 50 mls/hr AD PRN 07/15/24 11:30 08/14/24 11:29 Magnesium Sulfate 50 ml @ 0 mls/hr PROTOCOL PRN 07/15/24 11:30 08/14/24 11:29 PROBLEM LIST: (1) Bronchiectasis ICD Code: J47.9 - Bronchiectasis, uncomplicated (2) Dehydration ICD Code: E86.0 - Dehydration (3) Small bowel obstruction ICD Code: K56.609 - Unspecified intestinal obstruction, unspecified as to partial versus complete obstruction (4) VIJAY (acute kidney injury) ICD Code: N17.9 - Acute kidney failure, unspecified PLAN: ASSESSMENT AND PLAN: * Abdominal pain, abdominal distention. Continue with NG tube with intermittent low pressure suctioning. Continue surgical recommendations. * Continue n.p.o. and IV fluids. * Leukocytosis, possible diverticulitis. Continue with IV antibiotics. * Dehydration. Continue with IV fluids. Continue treatment of other comorbidities. Follow up in a.m. with labs. RANDALL MONTES MD Jul 15, 2024 22:29
[2024-07-16] VITALS (21 sets, daily range): BP systolic 123–158; BP diastolic 45–98; PULSE 46–84; RESP 16–20; TEMP 97.3–98.3; O2SAT 95–98
[2024-07-16 05:23] LABS: HEMATOCRIT 31.8 % (42-54); MEAN CORPUSCULAR HEMOGLOBIN 29.5 pg (27.0-33.0); MEAN CORPUSCULAR HGB CONC 30.2 g/dL (32.0-36.0); MEAN CORPUSCULAR VOLUME 97.8 fL (79-99); RED BLOOD CELL COUNT(AUTO) 3.25 MIL/uL (4.50-6.20); RED CELL DISTRIBUTION WIDTH 13.6 % (11.0-15.5)
[2024-07-16 05:41] LABS: ALBUMIN 1.8 g/dL (3.5-5.0); BILIRUBIN,TOTAL 0.6 mg/dL (0.2-1.0); CREATININE 0.7 mg/dL (0.5-1.3); MAGNESIUM 1.9 mg/dL (1.80-2.40); POTASSIUM 3.9 mmol/L (3.5-5.1); TOTAL PROTEIN, SERUM 5.1 g/dL (6.0-8.3)
--- NOTE | 2024-07-16 06:30 | NUR ---
CALL FROM SURGEON T/C FROM , STATES WILL TAKE PT TO SURGERY TODAY, STATES WILL WRITE ORDERS.
[2024-07-16 08:08] LABS: INR 1.19 (0.85-1.15); PROTHROMBIN TIME 12.4 SEC (9.6-11.6)
[2024-07-16] MEDS: MAGNESIUM 2GM PREMIX 50ML 50 ML IV PRN (09:39)
[2024-07-16] MEDS ORDERED: proPOFol 10 MG/ML 20ML VIAL IV ONE (14:57)
[2024-07-16] MEDS ORDERED: FENTanyl CITRate PF 50 MCG/1 ML 2ML VIAL ONE ×3 (14:57→21:42)
[2024-07-16] MEDS ORDERED: ondanSETRON 4MG INJ ONE (14:57)
[2024-07-16] MEDS ORDERED: rocuRONium bROMide 10MG/1ML 5ML VL ONE (15:12)
[2024-07-16] MEDS ORDERED: phenylEPHRINE HCL 10 MG/ML 1ML VIAL IV ONE (15:15)
[2024-07-16] MEDS ORDERED: ROPivacaine 0.5% 5MG/ML 30ML ONE (15:17)
[2024-07-16] MEDS ORDERED: SUCCINYLCHOLINE CHLORIDE 20 MG/ML 10 ML VIAL ONE (20:02)
[2024-07-16] MEDS: cefTRIAXone 2GM VIAL IVPB ONE (20:12)
[2024-07-16] MEDS: atorVAStatin 20 MG TABLET PO SCH (21:00)
--- NOTE | 2024-07-16 21:21 | PN ---
PROGRESS NOTE PROGRESS NOTE DATE OF PROGRESS NOTE: 07/16/24 SUBJECTIVE: Persists with symptoms pending exploratory laparotomy today VITAL SIGNS Vital Signs Date Time Temp Pulse Resp B/P (MAP) Pulse Ox O2 Delivery O2 Flow Rate FiO2 07/16/24 16:00 98.2 71 18 138/71 98 Room Air 07/16/24 09:39 0 21 PHYSICAL EXAM: OBJECTIVE: GENERAL: Currently awake, alert, and oriented in person, time and place, not in distress. HEENT: Normocephalic, atraumatic. LUNGS: Clear to auscultation. HEART: S1, S2 are distant. ABDOMEN: Soft and nontender. LABORATORY: Laboratory Result(s) Test 07/16/24 04:23 07/16/24 07:54 07/16/24 17:45 07/16/24 19:48 White Blood Count 4.0 K/uL (4.8-10.8) Red Blood Count 3.25 MIL/uL (4.50-6.20) Hemoglobin 9.6 g/dL (14.0-18.0) Hematocrit 31.8 % (42-54) Mean Corpuscular Volume 97.8 fL (79-99) Mean Corpuscular Hemoglobin 29.5 pg (27.0-33.0) Mean Corpuscular Hemoglobin Concent 30.2 g/dL (32.0-36.0) Red Cell Distribution Width 13.6 % (11.0-15.5) Platelet Count 219 K/uL (130-400) Mean Platelet Volume 9.3 fL (7.5-10.5) Nucleated Red Blood Cells 0.0 % (0.0-0.19) Sodium Level 143 mmol/L (136-145) Potassium Level 3.9 mmol/L (3.5-5.1) Chloride Level 108 mmol/L (101-111) Carbon Dioxide Level 29 mmol/L (21-32) Blood Urea Nitrogen 17 mg/dL (7-18) Creatinine 0.7 mg/dL (0.5-1.3) Glomerular Filtration Rate Calc 93 mL/min (>90) Random Glucose 84 mg/dL (70-105) Total Calcium 8.1 mg/dL (8.5-10.1) Magnesium Level 1.90 mg/dL (1.80-2.40) Total Bilirubin 0.6 mg/dL (0.2-1.0) Aspartate Amino Transf (AST/SGOT) 17 U/L (10-37) Alanine Aminotransferase (ALT/SGPT) 16 U/L (12-78) Alkaline Phosphatase 52 U/L (50-136) Total Protein 5.1 g/dL (6.0-8.3) Albumin 1.8 g/dL (3.5-5.0) Prothrombin Time 12.4 SEC (9.6-11.6) Prothromb Time International Ratio 1.19 (0.85-1.15) Whole Blood Glucose 83 MG/DL (70-110) 67 MG/DL (70-110) INPATIENT MEDS: Current Medications Medications Dose Ordered Sig/Jessika Start Time Stop Time Status Last Admin Ondansetron HCl 4 mg Q6H PRN 07/12/24 22:00 08/11/24 21:59 Morphine Sulfate 4 mg Q6H PRN 07/12/24 22:00 07/19/24 21:59 07/14/24 13:12 Atorvastatin Calcium 20 mg HS 07/16/24 21:00 08/15/24 20:59 Clopidogrel Bisulfate 75 mg DAILY 07/16/24 09:00 08/15/24 08:59 Furosemide 20 mg DAILY 07/16/24 09:00 08/15/24 08:59 Montelukast Sodium 10 mg HS 07/15/24 21:00 08/14/24 20:59 07/15/24 21:04 Pioglitazone HCl 30 mg DAILY 07/16/24 09:00 08/15/24 08:59 Ranolazine 500 mg BID 07/15/24 21:00 08/14/24 20:59 07/15/24 21:03 Pantoprazole Sodium 40 mg DAILY 07/16/24 09:00 08/15/24 08:59 Potassium Chloride 100 ml @ 50 mls/hr AD PRN 07/15/24 11:30 08/14/24 11:29 Magnesium Sulfate 50 ml @ 0 mls/hr PROTOCOL PRN 07/15/24 11:30 08/14/24 11:29 07/16/24 09:39 PROBLEM LIST: (1) Bronchiectasis ICD Code: J47.9 - Bronchiectasis, uncomplicated (2) Dehydration ICD Code: E86.0 - Dehydration (3) Small bowel obstruction ICD Code: K56.609 - Unspecified intestinal obstruction, unspecified as to partial versus complete obstruction (4) VIJAY (acute kidney injury) ICD Code: N17.9 - Acute kidney failure, unspecified PLAN: ASSESSMENT AND PLAN: * Abdominal pain, abdominal distention. . Continue surgical recommendations. * Continue n.p.o. and IV fluids. * Leukocytosis, possible diverticulitis. Continue with IV antibiotics. * Dehydration. Continue with IV fluids. Continue treatment of other comorbidities. Follow up in a.m. with labs. RANDALL MONTES MD Jul 16, 2024 21:21
[2024-07-16] MEDS ORDERED: NEOSTIGMINE METHYLSULFATE 1MG/ML IV ONE (21:28)
[2024-07-16] MEDS ORDERED: GLYCOPYRROLATE 0.2 MG/ML 5 ML VIAL ONE (21:28)
--- NOTE | 2024-07-16 21:48 | OP ---
Operative Note: DATE OF PROCEDURE: 07/16/24 SURGEON: PING WARNER MD [place] MATE: [Teresa Resendez CFA] ANESTHESIA: [General endotracheal anesthesia] ANESTHESIOLOGIST/HEAD GRINDER: [[facility] anesthesia team] PREOPERATIVE DIAGNOSIS: [Partial bowel obstruction] POSTOPERATIVE DIAGNOSIS: [Bowel malrotation with dense Naples's bands] SYNOPSIS: [Bowel malrotation with dense Naples's bands Exploratory laparotomy, correction of bowel malrotation with lysis of Ron's bands Bowel healthy at the end the case All sponges and instruments accounted for at the end the case Patient tolerated the procedure well, there were no complications] PROCEDURE: [Exploratory laparotomy, correction of bowel malrotation with lysis of Ron's bands] ESTIMATED BLOOD LOSS: [Less than 100 cc] INDICATIONS: [Persistent bowel obstruction resistant to conservative management] DESCRIPTION OF PROCEDURE: [On day of surgery patient presented to the hospital. Patient was brought back to operating room. Positioned in the supine position. Preoperative antibiotics were given. Bilateral SCDs were placed. Patient was intubated. Patient then was prepped and draped the usual fashion. Midline incision was made. Dissection down through the fascia done electrocautery. Abdomen was entered sharply. Of immediate note there was significant amount of fluid within the abdomen as well as dilated loops of bowel. Careful evisceration of the small bowel was undertaken. There appeared to be dense bands holding the bowel to the colon and the right pericolic gutter as well as the liver. Careful sharp enterolysis was then undertaken to free up all the loops of bowel. Bowel bowel enterolysis took approximately an hour and a half. Once this was done it appeared that the terminal ileum was tethered to the colon and tethered to the right abdominal wall with the omentum and transverse colon draped over and densely adherent to the liver and the right abdominal wall. Sharp enterolysis was then undertaken to free up the adhesions to the right abdominal wall by freeing up the transverse colon as well as the omentum. Once this was done the white line of Toldt was incised and the right colon was identified deep in a folded manner behind the transverse colon in the right hussain colic gutter. This appeared to be lab has been and these was taken down to free up the ascending colon as well as the terminal ileum. Careful mobilization of the right colon was undertaken. The duodenum was identified and gently . The hepatocolic ligament was taken down. Then further bowel enterolysis was undertaken to free up all the bowel and straightened out the sm all bowel from the ligament of Treitz all the way to the terminal ileum. Then the colon was straightened out and all the enterocolonic adhesions were taken down so as to be able to strain of the ascending colon into the transverse colon. Once this was done the colon placed in the right abdomen and the small bowel was placed in the left abdomen. The abdomen was then copiously irrigated. All irrigation was removed. Appropriate hemostasis was observed. Then the fascia was closed with 1. Looped PDS suture in running fashion. Skin was staple closed. Appropriate dressings were placed. Patient has woken up, transferred to a stretcher, taken to recovery recovery. All sponges and instruments were accounted for at the end the case. Patient tolerated the procedure well, there no complications] PING WARNER MD Jul 16, 2024 21:48
[2024-07-16] MEDS: ondanSETRON 4MG INJ ONE (22:16)
[2024-07-16] MEDS: FENTanyl CITRate PF 50 MCG/1 ML 2ML VIAL ONE (22:17)
--- NOTE | 2024-07-16 22:50 | NUR ---
RECEIVED PATIENT FROM RECOVERY S/P OPEN EXPLORATORY LAPAROTOMY PATIENT IS AOX3 HE HAS JED TO THE INCISION, DRESSED WITH 4X4 ABDOMINAL PADS TAPE AND SECURE WITH AN ABDOMINAL BINDER. DRESSING IS DRY AND INTACT, VS ARE STABLE AND PATIENT IS CURRENTLY SATTING 98 % ON 2L NC. PATIENT IS RESTING COMFORTABLY IN BED BREATHING IS EVEN AND NONLABORED. FAMILY IS AT BEDSIDE. ADVISED PATIENT AND FAMILY TO CALL WITH ANY CONCERNS OR QUESTIONS. CALL LIGHT IN REACH, BED LOW AND SIDE RAILS X3.
[2024-07-17] VITALS (11 sets, daily range): BP systolic 119–158; BP diastolic 57–78; PULSE 70–87; RESP 18–20; TEMP 97.5–98.7; O2SAT 94–98
[2024-07-17] MEDS: morPHINE 2 MG SYG IVP PRN (04:18)
[2024-07-17 08:00] LABS: BASOPHILS # (AUTO) 0.03 K/uL (0.00-0.20); BASOPHILS % (AUTO) 0.3 % (0.0-5.0); HEMATOCRIT 34.5 % (42-54); IMMATURE GRANULOCYTE ABSOLUTE 0.19 K/uL (0-1); LYMPHOCYTES # (AUTO) 0.5 K/uL (1.0-4.8); LYMPHOCYTES % (AUTO) 4.7 % (21.0-51.0); MEAN CORPUSCULAR HGB CONC 31.6 g/dL (32.0-36.0); MONOCYTES # (AUTO) 0.5 K/uL (0.1-1.0); MONOCYTES % (AUTO) 4.2 % (3.0-13.0); NEUTROPHILS # (AUTO) 9.5 K/uL (1.8-7.7); PLATELET COUNT (AUTO) 268 K/uL (130-400); RED BLOOD CELL COUNT(AUTO) 3.63 MIL/uL (4.50-6.20); RED CELL DISTRIBUTION WIDTH 13.7 % (11.0-15.5); WHITE BLOOD COUNT (AUTO) 10.7 K/uL (4.8-10.8)
[2024-07-17 08:26] LABS: ALBUMIN 1.8 g/dL (3.5-5.0); BILIRUBIN,TOTAL 0.6 mg/dL (0.2-1.0); CREATININE 0.8 mg/dL (0.5-1.3); MAGNESIUM 1.9 mg/dL (1.80-2.40); POTASSIUM 4.3 mmol/L (3.5-5.1)
[2024-07-17] MEDS: furoSEMIDE 20 MG TABLET PO SCH (09:00)
[2024-07-17] MEDS: PANTOPrazole 40 MG TAB DR PO SCH (09:00)
[2024-07-17] MEDS: PIOGLITAZONE 30MG TAB PO SCH (09:00)
[2024-07-17] MEDS: cloPIDOgrel 75MG TAB PO SCH (09:00)
[2024-07-17] MEDS: doCUSate SODIUM 100 MG CAP PO ONE ×2 (09:31→20:47)
[2024-07-17] MEDS: methoCARBamol 500 MG TABLET PO SCH (09:31)
[2024-07-17] MEDS: GABApentin 100 MG CAPSULE PO SCH (09:32)
--- NOTE | 2024-07-17 18:18 | PN ---
GENERAL SURGERY PROGRESS NOTE Date/Time Patient Seen: [ July 17, 2024] Problem List: [ Partial bowel obstruction] Interval History: [patient is postop day one from his exploration and lysis of Ron's bands. Patient is doing well. Pain is controlled. I gave the patient has clear liquid diet however his diet was advanced to a mechanical soft diet without a physician's order. Patient is still has not had any flatus or bowel movements.] Current Medications Medications (Trade) Dose Ordered Sig/Jessika Route Start Time Stop Time Status Last Admin Dose Admin Atorvastatin Calcium (LIPItor 20MG) 20 mg HS PO 07/16/24 21:00 08/15/24 20:59 Clopidogrel Bisulfate (plaVIX 75MG) 75 mg DAILY PO 07/16/24 09:00 08/15/24 08:59 07/17/24 09:32 75 MG Dextrose/Sodium Chloride 1,000 ml @ 75 mls/hr [id number] IV 07/12/24 22:00 07/13/24 08:42 DC 07/13/24 00:54 75 MLS/HR Furosemide (LASix 20MG TAB) 20 mg DAILY PO 07/16/24 09:00 08/15/24 08:59 07/17/24 09:31 20 MG Gabapentin (NEURontin 100 mg CAP) 100 mg TID PO 07/17/24 09:00 08/16/24 08:59 07/17/24 16:48 100 MG Lactated Ringer's 1,000 ml @ 120 mls/hr Q8H20M IV 07/13/24 09:00 07/15/24 11:49 DC 07/15/24 11:14 120 MLS/HR Methocarbamol (methoCARBamol) 500 mg TID PO 07/17/24 09:00 08/16/24 08:59 07/17/24 16:48 500 MG Montelukast Sodium (SinguLAIR) 10 mg HS PO 07/15/24 21:00 08/14/24 20:59 07/15/24 21:04 10 MG Pantoprazole Sodium (PROTonix 40MG TAB) 40 mg DAILY PO 07/16/24 09:00 08/15/24 08:59 07/17/24 09:31 40 MG Pharmacy Profile Note (Pharmacy Communication) 1 each AD MISC 07/13/24 10:00 07/13/24 09:43 DC Pioglitazone HCl (Actos 30mg) 30 mg DAILY PO 07/16/24 09:00 08/15/24 08:59 07/17/24 09:32 30 MG Ranolazine (Ranexa) 500 mg BID PO 07/15/24 21:00 08/14/24 20:59 07/17/24 09:31 500 MG Physical Examination: Awake, alert, oriented x3 Unlabored Regular rate and rhythm Abdomen slightly protuberant. Nontender. Dressings in place. Vital Signs (last 8hr) Date Time Temp Pulse Resp B/P (MAP) Pulse Ox O2 Delivery O2 Flow Rate FiO2 07/17/24 16:18 98.8 86 18 148/78 99 Nasal Cannula 2.0 07/17/24 11:45 98.8 84 18 119/72 98 Nasal Cannula 2.0 Laboratory: [ ] Hematology Labs: Test 07/17/24 07:54 Range/Units White Blood Count 10.7 4.8-10.8 K/uL Red Blood Count 3.63 L 4.50-6.20 MIL/uL Hemoglobin 10.9 L 14.0-18.0 g/dL Hematocrit 34.5 L 42-54 % Mean Corpuscular Volume 95.0 79-99 fL Mean Corpuscular Hemoglobin 30.0 27.0-33.0 pg Mean Corpuscular Hemoglobin Concent 31.6 L 32.0-36.0 g/dL Red Cell Distribution Width 13.7 11.0-15.5 % Platelet Count 268 130-400 K/uL Mean Platelet Volume 8.9 7.5-10.5 fL Immature Granulocyte % (Auto) 1.8 H 0-1 % Neutrophils (%) (Auto) 89.0 H 40.0-77.0 % Lymphocytes (%) (Auto) 4.7 L 21.0-51.0 % Monocytes (%) (Auto) 4.2 3.0-13.0 % Eosinophils (%) (Auto) 0.0 0.0-8.0 % Basophils (%) (Auto) 0.3 0.0-5.0 % Neutrophils # (Auto) 9.5 H 1.8-7.7 K/uL Lymphocytes # (Auto) 0.5 L 1.0-4.8 K/uL Monocytes # (Auto) 0.5 0.1-1.0 K/uL Eosinophils # (Auto) 0.00 0.00-0.70 K/uL Basophils # (Auto) 0.03 0.00-0.20 K/uL Absolute Immature Granulocyte (auto 0.19 0-1 K/uL Nucleated Red Blood Cells 0.0 0.0-0.19 % Chemistry Labs: Test 07/17/24 15:41 07/17/24 07:54 Range/Units Whole Blood Glucose 164 H 70-110 MG/DL Sodium Level 141 136-145 mmol/L Potassium Level 4.3 3.5-5.1 mmol/L Chloride Level 107 101-111 mmol/L Carbon Dioxide Level 27 21-32 mmol/L Blood Urea Nitrogen 17 7-18 mg/dL Creatinine 0.8 0.5-1.3 mg/dL Glomerular Filtration Rate Calc 89 >90 mL/min Random Glucose 94 70-105 mg/dL Total Calcium 7.9 L 8.5-10.1 mg/dL Magnesium Level 1.90 1.80-2.40 mg/dL Total Bilirubin 0.6 0.2-1.0 mg/dL Aspartate Amino Transf (AST/SGOT) 32 10-37 U/L Alanine Aminotransferase (ALT/SGPT) 25 12-78 U/L Alkaline Phosphatase 50 50-136 U/L Total Protein 5.0 L 6.0-8.3 g/dL Albumin 1.8 L 3.5-5.0 g/dL Coagulation Labs: Test 07/16/24 07:54 Range/Units Prothrombin Time 12.4 H 9.6-11.6 SEC Prothromb Time International Ratio 1.19 H 0.85-1.15 Diagnostics / Radiology: [Copy/Paste Echos/Imaging Report here] Impression and Plan: [Patient is status post exploration and lysis of Ron's bands and correction of his malrotation. Unfortunately patient was given a soft mechanical diet without a physician started. I would have like to leave the patient on clear liquids at least started having bowel function. Recommendation is patient stays on a clear liquids till he has a bowel movement all significant amount of flatus then his diet can be advanced. Otherwise ambulate halls. Pulmonary toilet.. ] PING WARNER MD Jul 17, 2024 18:18
--- NOTE | 2024-07-17 21:43 | PN ---
PROGRESS NOTE PROGRESS NOTE DATE OF PROGRESS NOTE: 07/17/24 SUBJECTIVE: Patient had exploratory laparotomy andBowel malrotation with dense Ron's bands resolved VITAL SIGNS Vital Signs Date Time Temp Pulse Resp B/P (MAP) Pulse Ox O2 Delivery O2 Flow Rate FiO2 07/17/24 20:00 98.2 85 20 150/57 94 Room Air 07/17/24 16:18 2.0 07/17/24 07:42 28 PHYSICAL EXAM: OBJECTIVE: GENERAL: Currently awake, alert, and oriented in person, time and place, not in distress. HEENT: Normocephalic, atraumatic. LUNGS: Clear to auscultation. HEART: S1, S2 are distant. ABDOMEN: Soft and nontender. LABORATORY: Laboratory Result(s) Test 07/16/24 22:10 07/17/24 07:54 07/17/24 11:22 07/17/24 15:41 Whole Blood Glucose 84 MG/DL (70-110) 134 MG/DL (70-110) 164 MG/DL (70-110) White Blood Count 10.7 K/uL (4.8-10.8) Red Blood Count 3.63 MIL/uL (4.50-6.20) Hemoglobin 10.9 g/dL (14.0-18.0) Hematocrit 34.5 % (42-54) Mean Corpuscular Volume 95.0 fL (79-99) Mean Corpuscular Hemoglobin 30.0 pg (27.0-33.0) Mean Corpuscular Hemoglobin Concent 31.6 g/dL (32.0-36.0) Red Cell Distribution Width 13.7 % (11.0-15.5) Platelet Count 268 K/uL (130-400) Mean Platelet Volume 8.9 fL (7.5-10.5) Immature Granulocyte % (Auto) 1.8 % (0-1) Neutrophils (%) (Auto) 89.0 % (40.0-77.0) Lymphocytes (%) (Auto) 4.7 % (21.0-51.0) Monocytes (%) (Auto) 4.2 % (3.0-13.0) Eosinophils (%) (Auto) 0.0 % (0.0-8.0) Basophils (%) (Auto) 0.3 % (0.0-5.0) Neutrophils # (Auto) 9.5 K/uL (1.8-7.7) Lymphocytes # (Auto) 0.5 K/uL (1.0-4.8) Monocytes # (Auto) 0.5 K/uL (0.1-1.0) Eosinophils # (Auto) 0.00 K/uL (0.00-0.70) Basophils # (Auto) 0.03 K/uL (0.00-0.20) Absolute Immature Granulocyte (auto 0.19 K/uL (0-1) Nucleated Red Blood Cells 0.0 % (0.0-0.19) Sodium Level 141 mmol/L (136-145) Potassium Level 4.3 mmol/L (3.5-5.1) Chloride Level 107 mmol/L (101-111) Carbon Dioxide Level 27 mmol/L (21-32) Blood Urea Nitrogen 17 mg/dL (7-18) Creatinine 0.8 mg/dL (0.5-1.3) Glomerular Filtration Rate Calc 89 mL/min (>90) Random Glucose 94 mg/dL (70-105) Total Calcium 7.9 mg/dL (8.5-10.1) Magnesium Level 1.90 mg/dL (1.80-2.40) Total Bilirubin 0.6 mg/dL (0.2-1.0) Aspartate Amino Transf (AST/SGOT) 32 U/L (10-37) Alanine Aminotransferase (ALT/SGPT) 25 U/L (12-78) Alkaline Phosphatase 50 U/L (50-136) Total Protein 5.0 g/dL (6.0-8.3) Albumin 1.8 g/dL (3.5-5.0) Test 07/17/24 19:46 Whole Blood Glucose 195 MG/DL (70-110) INPATIENT MEDS: Current Medications Medications Dose Ordered Sig/Jessika Start Time Stop Time Status Last Admin Ondansetron HCl 4 mg Q6H PRN 07/12/24 22:00 08/11/24 21:59 Atorvastatin Calcium 20 mg HS 07/16/24 21:00 08/15/24 20:59 07/17/24 20:47 Clopidogrel Bisulfate 75 mg DAILY 07/16/24 09:00 08/15/24 08:59 07/17/24 09:32 Furosemide 20 mg DAILY 07/16/24 09:00 08/15/24 08:59 07/17/24 09:31 Montelukast Sodium 10 mg HS 07/15/24 21:00 08/14/24 20:59 07/17/24 20:47 Pioglitazone HCl 30 mg DAILY 07/16/24 09:00 08/15/24 08:59 07/17/24 09:32 Ranolazine 500 mg BID 07/15/24 21:00 08/14/24 20:59 07/17/24 09:31 Pantoprazole Sodium 40 mg DAILY 07/16/24 09:00 08/15/24 08:59 07/17/24 09:31 Potassium Chloride 100 ml @ 50 mls/hr AD PRN 07/15/24 11:30 08/14/24 11:29 Magnesium Sulfate 50 ml @ 0 mls/hr PROTOCOL PRN 07/15/24 11:30 08/14/24 11:29 07/17/24 14:17 Morphine Sulfate 2 mg Q2HPRN PRN 07/17/24 04:00 07/24/24 03:59 07/17/24 12:36 Tramadol HCl 50 mg Q6H PRN 07/17/24 04:00 07/22/24 03:59 Gabapentin 100 mg TID 07/17/24 09:00 08/16/24 08:59 07/17/24 20:47 Methocarbamol 500 mg TID 07/17/24 09:00 08/16/24 08:59 07/17/24 20:48 PROBLEM LIST: (1) Bronchiectasis ICD Code: J47.9 - Bronchiectasis, uncomplicated (2) Dehydration ICD Code: E86.0 - Dehydration (3) Small bowel obstruction ICD Code: K56.609 - Unspecified intestinal obstruction, unspecified as to partial versus complete obstruction (4) VIJAY (acute kidney injury) ICD Code: N17.9 - Acute kidney failure, unspecified PLAN: ASSESSMENT AND PLAN: Bowel malrotation with dense [place]'s bands surgically treated progress diet as tolerated RANDALL MONTES MD Jul 17, 2024 21:43
[2024-07-18] VITALS (7 sets, daily range): BP systolic 138–158; BP diastolic 54–73; PULSE 60–94; RESP 18–20; TEMP 98–99.4; O2SAT 94–95
[2024-07-18] MEDS: traMADol HCL 50 MG TABLET PO PRN (04:20)
[2024-07-18] MEDS: SIMETHICONE 80 MG TAB.CHEW PO SCH (10:01)
--- NOTE | 2024-07-18 15:05 | NUR ---
DRESSING CHANGE TO ABD INCISION DONE. JED INTACT AND WOUND APPROXIMATED. COVERED WITH 4X4'S AND MEDIPORE TAPE. ABD BINDER IN PLACE
--- NOTE | 2024-07-18 21:48 | PN ---
PROGRESS NOTE PROGRESS NOTE DATE OF PROGRESS NOTE: 07/18/24 SUBJECTIVE: Patient still has bloated abdomen and dyspepsia VITAL SIGNS Vital Signs Date Time Temp Pulse Resp B/P (MAP) Pulse Ox O2 Delivery O2 Flow Rate FiO2 07/18/24 20:00 98.1 91 18 140/67 94 Nasal Cannula 2.0 07/18/24 08:20 28 PHYSICAL EXAM: OBJECTIVE: GENERAL: Currently awake, alert, and oriented in person, time and place, not in distress. HEENT: Normocephalic, atraumatic. LUNGS: Clear to auscultation. HEART: S1, S2 are distant. ABDOMEN: Soft and nontender. LABORATORY: Laboratory Result(s) Test 07/18/24 05:15 07/18/24 15:53 07/18/24 19:11 Whole Blood Glucose 141 MG/DL (70-110) 132 MG/DL (70-110) 153 MG/DL (70-110) INPATIENT MEDS: Current Medications Medications Dose Ordered Sig/Jessika Start Time Stop Time Status Last Admin Ondansetron HCl 4 mg Q6H PRN 07/12/24 22:00 08/11/24 21:59 Atorvastatin Calcium 20 mg HS 07/16/24 21:00 08/15/24 20:59 07/18/24 20:32 Clopidogrel Bisulfate 75 mg DAILY 07/16/24 09:00 08/15/24 08:59 07/18/24 10:00 Furosemide 20 mg DAILY 07/16/24 09:00 08/15/24 08:59 07/18/24 10:00 Montelukast Sodium 10 mg HS 07/15/24 21:00 08/14/24 20:59 07/18/24 20:32 Pioglitazone HCl 30 mg DAILY 07/16/24 09:00 08/15/24 08:59 07/18/24 10:00 Ranolazine 500 mg BID 07/15/24 21:00 08/14/24 20:59 07/18/24 20:32 Pantoprazole Sodium 40 mg DAILY 07/16/24 09:00 08/15/24 08:59 07/18/24 10:00 Potassium Chloride 100 ml @ 50 mls/hr AD PRN 07/15/24 11:30 08/14/24 11:29 Magnesium Sulfate 50 ml @ 0 mls/hr PROTOCOL PRN 07/15/24 11:30 08/14/24 11:29 07/17/24 14:17 Morphine Sulfate 2 mg Q2HPRN PRN 07/17/24 04:00 07/24/24 03:59 07/17/24 12:36 Tramadol HCl 50 mg Q6H PRN 07/17/24 04:00 07/22/24 03:59 07/18/24 04:20 Gabapentin 100 mg TID 07/17/24 09:00 08/16/24 08:59 07/18/24 20:34 Methocarbamol 500 mg TID 07/17/24 09:00 08/16/24 08:59 07/18/24 20:33 Simethicone 80 mg PCHS 07/18/24 09:00 08/17/24 08:59 07/18/24 20:32 PROBLEM LIST: (1) Bronchiectasis ICD Code: J47.9 - Bronchiectasis, uncomplicated (2) Dehydration ICD Code: E86.0 - Dehydration (3) Small bowel obstruction ICD Code: K56.609 - Unspecified intestinal obstruction, unspecified as to partial versus complete obstruction (4) VIJAY (acute kidney injury) ICD Code: N17.9 - Acute kidney failure, unspecified PLAN: ASSESSMENT AND PLAN: Bowel malrotation with dense [place]'s bands surgically treated progress diet as tolerated RANDALL MONTES MD Jul 18, 2024 21:48
[2024-07-19] VITALS (8 sets, daily range): BP systolic 112–143; BP diastolic 46–60; PULSE 77–93; RESP 16–19; TEMP 98–99; O2SAT 90–92
[2024-07-19 08:17] LABS: HEMATOCRIT 28.6 % (42-54); MEAN CORPUSCULAR HEMOGLOBIN 30.4 pg (27.0-33.0); MEAN CORPUSCULAR HGB CONC 32.2 g/dL (32.0-36.0); MEAN CORPUSCULAR VOLUME 94.4 fL (79-99); RED BLOOD CELL COUNT(AUTO) 3.03 MIL/uL (4.50-6.20); RED CELL DISTRIBUTION WIDTH 13.5 % (11.0-15.5); WHITE BLOOD COUNT (AUTO) 6.5 K/uL (4.8-10.8)
[2024-07-19 08:41] LABS: ALBUMIN 1.6 g/dL (3.5-5.0); BILIRUBIN,TOTAL 0.6 mg/dL (0.2-1.0); CREATININE 0.8 mg/dL (0.5-1.3); MAGNESIUM 1.7 mg/dL (1.80-2.40); POTASSIUM 4.3 mmol/L (3.5-5.1)
--- NOTE | 2024-07-19 13:35 | PN ---
PROGRESS NOTE PROGRESS NOTE DATE OF PROGRESS NOTE: 07/19/24 SUBJECTIVE: Patient is progressing slowly with less bloating and has had a bowel movement VITAL SIGNS Vital Signs Date Time Temp Pulse Resp B/P (MAP) Pulse Ox O2 Delivery O2 Flow Rate FiO2 07/19/24 12:00 98.1 80 19 137/58 91 Room Air 21 07/19/24 04:00 2.0 PHYSICAL EXAM: OBJECTIVE: GENERAL: Currently awake, alert, and oriented in person, time and place, not in distress. HEENT: Normocephalic, atraumatic. LUNGS: Clear to auscultation. HEART: S1, S2 are distant. ABDOMEN: Soft and nontender. LABORATORY: Laboratory Result(s) Test 07/18/24 15:53 07/18/24 19:11 07/19/24 05:09 07/19/24 08:13 Whole Blood Glucose 132 MG/DL (70-110) 153 MG/DL (70-110) 113 MG/DL (70-110) White Blood Count 6.5 K/uL (4.8-10.8) Red Blood Count 3.03 MIL/uL (4.50-6.20) Hemoglobin 9.2 g/dL (14.0-18.0) Hematocrit 28.6 % (42-54) Mean Corpuscular Volume 94.4 fL (79-99) Mean Corpuscular Hemoglobin 30.4 pg (27.0-33.0) Mean Corpuscular Hemoglobin Concent 32.2 g/dL (32.0-36.0) Red Cell Distribution Width 13.5 % (11.0-15.5) Platelet Count 270 K/uL (130-400) Mean Platelet Volume 8.9 fL (7.5-10.5) Nucleated Red Blood Cells 0.0 % (0.0-0.19) Sodium Level 139 mmol/L (136-145) Potassium Level 4.3 mmol/L (3.5-5.1) Chloride Level 103 mmol/L (101-111) Carbon Dioxide Level 33 mmol/L (21-32) Blood Urea Nitrogen 13 mg/dL (7-18) Creatinine 0.8 mg/dL (0.5-1.3) Glomerular Filtration Rate Calc 89 mL/min (>90) Random Glucose 101 mg/dL (70-105) Total Calcium 7.7 mg/dL (8.5-10.1) Magnesium Level 1.70 mg/dL (1.80-2.40) Total Bilirubin 0.6 mg/dL (0.2-1.0) Aspartate Amino Transf (AST/SGOT) 16 U/L (10-37) Alanine Aminotransferase (ALT/SGPT) 20 U/L (12-78) Alkaline Phosphatase 51 U/L (50-136) Total Protein 5.0 g/dL (6.0-8.3) Albumin 1.6 g/dL (3.5-5.0) Test 07/19/24 11:48 Whole Blood Glucose 105 MG/DL (70-110) INPATIENT MEDS: Current Medications Medications Dose Ordered Sig/Jessika Start Time Stop Time Status Last Admin Ondansetron HCl 4 mg Q6H PRN 07/12/24 22:00 08/11/24 21:59 Atorvastatin Calcium 20 mg HS 07/16/24 21:00 08/15/24 20:59 07/18/24 20:32 Clopidogrel Bisulfate 75 mg DAILY 07/16/24 09:00 08/15/24 08:59 07/19/24 08:44 Furosemide 20 mg DAILY 07/16/24 09:00 08/15/24 08:59 07/19/24 08:43 Montelukast Sodium 10 mg HS 07/15/24 21:00 08/14/24 20:59 07/18/24 20:32 Pioglitazone HCl 30 mg DAILY 07/16/24 09:00 08/15/24 08:59 07/19/24 08:43 Ranolazine 500 mg BID 07/15/24 21:00 08/14/24 20:59 07/19/24 08:43 Pantoprazole Sodium 40 mg DAILY 07/16/24 09:00 08/15/24 08:59 07/19/24 08:43 Potassium Chloride 100 ml @ 50 mls/hr AD PRN 07/15/24 11:30 08/14/24 11:29 Magnesium Sulfate 50 ml @ 0 mls/hr PROTOCOL PRN 07/15/24 11:30 08/14/24 11:29 07/19/24 12:30 Morphine Sulfate 2 mg Q2HPRN PRN 07/17/24 04:00 07/24/24 03:59 07/17/24 12:36 Tramadol HCl 50 mg Q6H PRN 07/17/24 04:00 07/22/24 03:59 07/18/24 04:20 Gabapentin 100 mg TID 07/17/24 09:00 08/16/24 08:59 07/19/24 08:44 Methocarbamol 500 mg TID 07/17/24 09:00 08/16/24 08:59 07/19/24 08:43 Simethicone 80 mg PCHS 07/18/24 09:00 08/17/24 08:59 07/19/24 12:30 PROBLEM LIST: (1) Bronchiectasis ICD Code: J47.9 - Bronchiectasis, uncomplicated (2) Dehydration ICD Code: E86.0 - Dehydration (3) Small bowel obstruction ICD Code: K56.609 - Unspecified intestinal obstruction, unspecified as to partial versus complete obstruction (4) VIJAY (acute kidney injury) ICD Code: N17.9 - Acute kidney failure, unspecified PLAN: ASSESSMENT AND PLAN: Bowel malrotation with dense [place]'s bands surgically treated progress diet as tolerated RANDALL MONTES MD Jul 19, 2024 13:35
--- NOTE | 2024-07-19 15:06 | PN ---
GENERAL SURGERY PROGRESS NOTE Date/Time Patient Seen: [July 19, 2024 ] Problem List: [ Partial bowel obstruction] Interval History: [Patient had significant amount of flatus who has bowel movement. However his abdomen is slightly more distended. Slightly tender. Patient denies any nausea or emesis..] Current Medications Medications (Trade) Dose Ordered Sig/Jessika Route Start Time Stop Time Status Last Admin Dose Admin Atorvastatin Calcium (LIPItor 20MG) 20 mg HS PO 07/16/24 21:00 08/15/24 20:59 07/18/24 20:32 20 MG Clopidogrel Bisulfate (plaVIX 75MG) 75 mg DAILY PO 07/16/24 09:00 08/15/24 08:59 07/19/24 08:44 75 MG Dextrose/Sodium Chloride 1,000 ml @ 75 mls/hr [id number] IV 07/12/24 22:00 07/13/24 08:42 DC 07/13/24 00:54 75 MLS/HR Furosemide (LASix 20MG TAB) 20 mg DAILY PO 07/16/24 09:00 08/15/24 08:59 07/19/24 08:43 20 MG Gabapentin (NEURontin 100 mg CAP) 100 mg TID PO 07/17/24 09:00 08/16/24 08:59 07/19/24 14:40 100 MG Lactated Ringer's 1,000 ml @ 120 mls/hr Q8H20M IV 07/13/24 09:00 07/15/24 11:49 DC 07/15/24 11:14 120 MLS/HR Methocarbamol (methoCARBamol) 500 mg TID PO 07/17/24 09:00 08/16/24 08:59 07/19/24 14:41 500 MG Montelukast Sodium (SinguLAIR) 10 mg HS PO 07/15/24 21:00 08/14/24 20:59 07/18/24 20:32 10 MG Pantoprazole Sodium (PROTonix 40MG TAB) 40 mg DAILY PO 07/16/24 09:00 08/15/24 08:59 07/19/24 08:43 40 MG Pharmacy Profile Note (Pharmacy Communication) 1 each AD MISC 07/13/24 10:00 07/13/24 09:43 DC Pioglitazone HCl (Actos 30mg) 30 mg DAILY PO 07/16/24 09:00 08/15/24 08:59 07/19/24 08:43 30 MG Ranolazine (Ranexa) 500 mg BID PO 07/15/24 21:00 08/14/24 20:59 07/19/24 08:43 500 MG Simethicone (Mylicon) 80 mg PCHS PO 07/18/24 09:00 08/17/24 08:59 07/19/24 12:30 80 MG Physical Examination: Awake, alert, oriented x3 Unlabored Regular rate and rhythm Abdomen protuberant abdomen. Incision clean and dry. Slightly tender at the level of the incision Vital Signs (last 8hr) Date Time Temp Pulse Resp B/P (MAP) Pulse Ox O2 Delivery O2 Flow Rate FiO2 07/19/24 12:00 98.1 80 19 137/58 91 Room Air 21 07/19/24 08:00 98.4 85 16 113/60 90 Room Air 21 Laboratory: [ ] Hematology Labs: Test 07/19/24 08:13 Range/Units White Blood Count 6.5 4.8-10.8 K/uL Red Blood Count 3.03 L 4.50-6.20 MIL/uL Hemoglobin 9.2 L 14.0-18.0 g/dL Hematocrit 28.6 L 42-54 % Mean Corpuscular Volume 94.4 79-99 fL Mean Corpuscular Hemoglobin 30.4 27.0-33.0 pg Mean Corpuscular Hemoglobin Concent 32.2 32.0-36.0 g/dL Red Cell Distribution Width 13.5 11.0-15.5 % Platelet Count 270 130-400 K/uL Mean Platelet Volume 8.9 7.5-10.5 fL Nucleated Red Blood Cells 0.0 0.0-0.19 % Chemistry Labs: Test 07/19/24 11:48 07/19/24 08:13 Range/Units Whole Blood Glucose 105 70-110 MG/DL Sodium Level 139 136-145 mmol/L Potassium Level 4.3 3.5-5.1 mmol/L Chloride Level 103 101-111 mmol/L Carbon Dioxide Level 33 H 21-32 mmol/L Blood Urea Nitrogen 13 7-18 mg/dL Creatinine 0.8 0.5-1.3 mg/dL Glomerular Filtration Rate Calc 89 >90 mL/min Random Glucose 101 70-105 mg/dL Total Calcium 7.7 L 8.5-10.1 mg/dL Magnesium Level 1.70 L 1.80-2.40 mg/dL Total Bilirubin 0.6 0.2-1.0 mg/dL Aspartate Amino Transf (AST/SGOT) 16 10-37 U/L Alanine Aminotransferase (ALT/SGPT) 20 12-78 U/L Alkaline Phosphatase 51 50-136 U/L Total Protein 5.0 L 6.0-8.3 g/dL Albumin 1.6 L 3.5-5.0 g/dL Diagnostics / Radiology: [Copy/Paste Echos/Imaging Report here] Impression and Plan: [Patient is status post last procedure. Concerning that patient's abdomen was has been more protuberant however patient had bowel movement and flatus. We will give the patient a full liquid diet. Ambulate. Pulmonary are. Further evaluation patient tomorrow. The patient's abdomen is less distended he could possibly go home.] PING WARNER MD Jul 19, 2024 15:06
[2024-07-20] VITALS: BP 125/59; PULSE 61; RESP 16; TEMP 98.7
[2024-07-20 04:00] VITALS: BP 134/47; PULSE 45; RESP 17; TEMP 98.3
[2024-07-20 04:14] LABS: HEMATOCRIT 29.8 % (42-54); MEAN CORPUSCULAR HEMOGLOBIN 29.7 pg (27.0-33.0); MEAN CORPUSCULAR HGB CONC 31.2 g/dL (32.0-36.0); MEAN CORPUSCULAR VOLUME 95.2 fL (79-99); RED BLOOD CELL COUNT(AUTO) 3.13 MIL/uL (4.50-6.20); RED CELL DISTRIBUTION WIDTH 13.5 % (11.0-15.5); WHITE BLOOD COUNT (AUTO) 7.1 K/uL (4.8-10.8)
[2024-07-20] MEDS ORDERED: METH-662 PO (07:33)
[2024-07-20] MEDS ORDERED: TRAM100T34 PO (07:33)
[2024-07-20] MEDS ORDERED: DOCU-116 PO (07:33)
[2024-07-20] MEDS ORDERED: GABA-529 PO (07:33)
--- NOTE | 2024-07-20 07:40 | PN ---
GENERAL SURGERY PROGRESS NOTE Date/Time Patient Seen: [July 20, 2024 ] Problem List: [ Partial bowel obstruction] Interval History: [Patient tolerated his full liquid diet. Had significant amount of flatus. Last bowel movement was yesterday morning.] Current Medications Medications (Trade) Dose Ordered Sig/Jessika Route Start Time Stop Time Status Last Admin Dose Admin Atorvastatin Calcium (LIPItor 20MG) 20 mg HS PO 07/16/24 21:00 08/15/24 20:59 07/19/24 21:19 20 MG Clopidogrel Bisulfate (plaVIX 75MG) 75 mg DAILY PO 07/16/24 09:00 08/15/24 08:59 07/19/24 08:44 75 MG Dextrose/Sodium Chloride 1,000 ml @ 75 mls/hr [id number] IV 07/12/24 22:00 07/13/24 08:42 DC 07/13/24 00:54 75 MLS/HR Furosemide (LASix 20MG TAB) 20 mg DAILY PO 07/16/24 09:00 08/15/24 08:59 07/19/24 08:43 20 MG Gabapentin (NEURontin 100 mg CAP) 100 mg TID PO 07/17/24 09:00 08/16/24 08:59 07/19/24 21:19 100 MG Lactated Ringer's 1,000 ml @ 120 mls/hr Q8H20M IV 07/13/24 09:00 07/15/24 11:49 DC 07/15/24 11:14 120 MLS/HR Methocarbamol (methoCARBamol) 500 mg TID PO 07/17/24 09:00 08/16/24 08:59 07/19/24 21:19 500 MG Montelukast Sodium (SinguLAIR) 10 mg HS PO 07/15/24 21:00 08/14/24 20:59 07/19/24 21:19 10 MG Pantoprazole Sodium (PROTonix 40MG TAB) 40 mg DAILY PO 07/16/24 09:00 08/15/24 08:59 07/19/24 08:43 40 MG Pharmacy Profile Note (Pharmacy Communication) 1 each AD MISC 07/13/24 10:00 07/13/24 09:43 DC Pioglitazone HCl (Actos 30mg) 30 mg DAILY PO 07/16/24 09:00 08/15/24 08:59 07/19/24 08:43 30 MG Ranolazine (Ranexa) 500 mg BID PO 07/15/24 21:00 08/14/24 20:59 07/19/24 21:19 500 MG Simethicone (Mylicon) 80 mg PCHS PO 07/18/24 09:00 08/17/24 08:59 07/19/24 21:19 80 MG Physical Examination: Awake, alert, oriented x3 Unlabored Regular rate and rhythm Abdomen abdomen is softer than yesterday. Minimal discomfort on deep palpation. Vital Signs (last 8hr) Date Time Temp Pulse Resp B/P (MAP) Pulse Ox O2 Delivery O2 Flow Rate FiO2 07/20/24 04:00 98.2 45 17 134/47 93 Room Air 21 07/20/24 00:00 98.8 61 16 125/59 93 Room Air 21 Laboratory: [ ] Hematology Labs: Test 07/20/24 04:04 Range/Units White Blood Count 7.1 4.8-10.8 K/uL Red Blood Count 3.13 L 4.50-6.20 MIL/uL Hemoglobin 9.3 L 14.0-18.0 g/dL Hematocrit 29.8 L 42-54 % Mean Corpuscular Volume 95.2 79-99 fL Mean Corpuscular Hemoglobin 29.7 27.0-33.0 pg Mean Corpuscular Hemoglobin Concent 31.2 L 32.0-36.0 g/dL Red Cell Distribution Width 13.5 11.0-15.5 % Platelet Count 317 130-400 K/uL Mean Platelet Volume 9.1 7.5-10.5 fL Nucleated Red Blood Cells 0.0 0.0-0.19 % Chemistry Labs: Test 07/20/24 05:44 07/20/24 04:04 07/19/24 08:13 Range/Units Whole Blood Glucose 102 70-110 MG/DL Magnesium Level 1.60 L 1.80-2.40 mg/dL Sodium Level 139 136-145 mmol/L Potassium Level 4.3 3.5-5.1 mmol/L Chloride Level 103 101-111 mmol/L Carbon Dioxide Level 33 H 21-32 mmol/L Blood Urea Nitrogen 13 7-18 mg/dL Creatinine 0.8 0.5-1.3 mg/dL Glomerular Filtration Rate Calc 89 >90 mL/min Random Glucose 101 70-105 mg/dL Total Calcium 7.7 L 8.5-10.1 mg/dL Total Bilirubin 0.6 0.2-1.0 mg/dL Aspartate Amino Transf (AST/SGOT) 16 10-37 U/L Alanine Aminotransferase (ALT/SGPT) 20 12-78 U/L Alkaline Phosphatase 51 50-136 U/L Total Protein 5.0 L 6.0-8.3 g/dL Albumin 1.6 L 3.5-5.0 g/dL Diagnostics / Radiology: [Copy/Paste Echos/Imaging Report here] Impression and Plan: [Patient continues to have flatus. Pain is significantly improved. Patient tolerating his full liquid diet. I think patient will be discharged home to stay on a full liquid diet for a few days then advance as tolerated. Prescriptions have been sent off for patient. Patient to follow up with me in about one week..] PING WARNER MD Jul 20, 2024 07:40
[2024-07-20 08:00] VITALS: BP 128/70; PULSE 91; RESP 18; TEMP 98.7
[2024-07-20 08:26] VITALS: O2SAT 93
[2024-07-20 11:56] VITALS: BP 125/50; PULSE 75; RESP 19; TEMP 98.4
--- NOTE | 2024-07-20 14:46 | NUR ---
DISCHARGE PATIENT PIV DC'D DISCHARGE INSTRUCTIONS GIVEN TO PATIENT PATIENT INFORMED OF FOLLOW UP APPOINTMENT ALL QUESTIONS ANSWERED PRIOR TO DISCHARGE
--- NOTE | 2024-07-20 15:02 | NUR ---
PER DR. FISH PATIENT IS TO FOLLOW UP WITH DR. MONTES REGARDING OBTAINING A WALKER. PATIENT AND FAMILY NOTIFIED.
--- NOTE | 2024-07-20 15:40 | NUR ---
EDUCATION PATIENT AND FAMILY EDUCATED ON IMPORTANCE OF PATIENT AMBULATING, ELEVATING HIS LEGS, WEARING COMPRESSION SOCKS, AND CONTINUING WITH HIS ORAL LASIX. UNDERSTANDING VERBALIZED. PATIENT TO FOLLOW UP WITH DR. MONTES ON MONDAY.
--- NOTE | 2024-07-21 00:59 | DS ---
Abdominal pain; small-bowel obstruction, status post exploratory lap, hypertension, stable; hypermagnesemia, stable and hyperkalemia, stable. CONDITION AT TIME OF DISCHARGE: Stable. PROGNOSIS: Fair. DISCHARGE MEDICATIONS: Continue with home medicines. HOSPITAL COURSE: The patient is hospitalized with diagnoses of abdominal pain, small-bowel obstruction. ____ exploratory lap, stable; hyperkalemia, stable; hypermagnesemia, stable and hypertension, stable. TID: [id number] RECEIPT: [id number]
--- NOTE | 2024-07-23 14:47 | NUR ---
Transitional Phone Call Attempted to call twice, left message [phone] and no return call.
== END 2024-07-20 15:40 | disposition home or self-care (01) | DRG 335 ==
LOC: EDH 18:41 → EDHIP 21:45 → 3AH 23:24
PROVIDERS: ADMIT Internal Medicine; ATTEND Internal Medicine
PROC: 0D9670Z Drainage of Stomach with Drainage Device, Via Natural or Artificial Opening (ICD-10-PCS; 2024-07-13)
PROC: 0DNL0ZZ Release Transverse Colon, Open Approach (ICD-10-PCS; 2024-07-16)
PROC: 0DNK0ZZ Release Ascending Colon, Open Approach (ICD-10-PCS; principal; 2024-07-16 20:16)
PROC: 0DNU0ZZ Release Omentum, Open Approach (ICD-10-PCS; 2024-07-16 20:16)
DX: K56.51 Intestinal adhesions [bands], with partial obstruction (principal); N17.0 Acute kidney failure with tubular necrosis; R18.8 Other ascites; D72.829 Elevated white blood cell count, unspecified; E86.0 Dehydration; E11.9 Type 2 diabetes mellitus without complications; E78.00 Pure hypercholesterolemia, unspecified; E83.41 Hypermagnesemia; E87.5 Hyperkalemia; I10 Essential (primary) hypertension; J43.9 Emphysema, unspecified
CPT/HCPCS: 36415; 74018; 74176; 80048; 80053; 80076; 81001; 82550; 82948; 83690; 83735; 83880; 84484; 85025; 85027; 85610; 86850; 86900; 86901; 86923; 93005; 96374; 96375; 97161; 99285; A4344; A4450; G0378; J0330; J0696; J2270; J2371; J2405; J2704; J2710; J2795; J3010; J3475; J3490; J7030; Q9963; A4215; A4649; A4930